=== PATIENT | male | born 1965 | race Caucasian/White ===

== ENCOUNTER 2023-10-02 09:04 | Inpatient (IN) | payer OTHER, SELFPAY ==
[2023-10-02] VITALS (15 sets, daily range): BP systolic 150–178; BP diastolic 71–105; PULSE 90–112; RESP 13–20; TEMP 36.4–36.9; O2SAT 95–100
--- NOTE | ~2023-10-02 | XR_ITS ---
XR foot LT 2V DATE: 10/03/2023 05:39 INDICATION: Left heel diabetic ulcer TECHNIQUE: AP and lateral views COMPARISON: None FINDINGS: Status post surgical fusion at the tibiotalar joint. Amputation of the distal phalanx of the great toe and middle and distal phalanges of the second toe Soft tissue irregularity along the base of the heel consistent with soft tissue ulcer. No underlying calcaneal bone destruction or periosteal reaction is evident. Three-phase radionuclide bone scan woul d be more sensitive for detection of osteomyelitis. IMPRESSION: Prominent soft tissue ulcer of the heel; no definite radiographic evidence of osteomyelit is. Three-phase radiographic bone scan would be more sensitive for detection of osteomyelitis. Status post tibiotalar arthrodesis Amputation of great toe distal phalanx second toe middle and distal phalanges Reviewed, dictated and finalized at location A. IMPRESSION: Prominent soft tissue ulcer of the heel; no definite radiographic e vidence of osteomyelitis. Three-phase radiographic bone scan would be more sens itive for detection of osteomyelitis. Status post tibiotalar arthrodesis Amputation of great toe distal phalanx second toe middle and distal phalanges
--- NOTE | ~2023-10-02 | NM_ITS ---
EXAMINATION: NM bone 3 phase DATE: 10/05/2023 12:32 INDICATION: Left foot osteomyelitis. TECHNIQUE: 24.5 mCi Tc-99m HDP was administered intravenously. Scintigrams of the feet and ankles wer e obtained in angiographic, blood pool, and delayed phases. COMPARISON: Left foot radiograph 10/03/2023 FINDINGS: There is increased activity in left calcaneus on all phases. IMPRESSION: 1. Increased activity in left calcaneus on all phases, consistent with osteomyelitis. Reviewed, dictated and finalized at location A. IMPRESSION: 1. Increased activity in left calcaneus on all phases, consistent with osteomy elitis.
--- NOTE | ~2023-10-02 | XR_ITS ---
XR chest 2V 10/02/2023 09:47 Indication: Fever Procedure: 2 view chest Comparison: No prior studies for comparison. Findings: Heart size normal. No focal air space disease, pulmonary edema, pleural effusion or suspect ed pneumothorax. Status post median sternotomy for CABG. There is a closure device overlying the left atrial appendage. Impression: 1: No acute cardiopulmonary disease. Reviewed, dictated and finalized at location B. Impression: 1: No acute cardiopulmonary disease.
--- NOTE | ~2023-10-02 | CT_ITS ---
EXAMINATION: CT abdomen pelvis wo con DATE: 10/02/2023 10:34 INDICATION: Epigastric abdominal pain. Nausea and vomiting. TECHNIQUE: Computed tomography (CT) of the abdomen and pelvis was performed without intravenous contr ast. Automated exposure control and iterative reconstruction technique were employed. The dose-length product was 1009.14 mGy-cm. COMPARISON: None. FINDINGS: The visualized portions of the lung bases demonstrate mild atelectasis. No pleural effusion . The heart size is normal. There are coronary artery calcifications. No pericardial effusion. There is wall thickening of the distal esophagus, likely esophagitis. A calcification in the liver is consi stent with old granulomatous disease. There are changes of cholecystectomy. The spleen, pancreas, and right adrenal gland are normal. There is a 2.4 cm mass in left adrenal gland measuring soft tissue a ttenuation. There is a 1.4 cm mass in right kidney measuring soft tissue attenuation. There is a 1.8 cm mass in cyst in left kidney. There is no urolithiasis. There are bilateral inguinal hernias contai marley fat. There are no dilated loops of bowel. The appendix is normal. Aortic atherosclerosis is note d. There are no pathologically enlarged lymph nodes. There is no free intraperitoneal fluid. There is an umbilical hernia containing fat. There is mild thoracic and lumbar spondylosis. There is a carmen ioma in L4 vertebral body. IMPRESSION: 1. Wall thickening of the distal esophagus, consistent with esophagitis. 2. 14 mm right kidney mass, which may be a hemorrhagic cyst or less likely a neoplasm. Abdomen MRI wi thout and with contrast is recommended. 3. 2.4 cm mass in the left adrenal gland. In the absence of known malignancy, this finding is likely an adenoma. 4. Umbilical hernia containing fat. Bilateral inguinal hernias containing fat. Reviewed, dictated and finalized at location A. IMPRESSION: 1. Wall thickening of the distal esophagus, consistent with esophagitis. 2. 14 mm right kidney mass, which may be a hemorrhagic cyst or less likely a ne oplasm. Abdomen MRI without and with contrast is recommended. 3. 2.4 cm mass in the left adrenal gland. In the absence of known malignancy, t his finding is likely an adenoma. 4. Umbilical hernia containing fat. Bilateral inguinal hernias containing fat.
--- NOTE | 2023-10-02 09:14 | ECG_ITS ---
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 Measurements Intervals [place] Rate: 113 P: 0 [place]: 0 QRS: 73 QRSD: 102 T: 51 QT: 366 QTc: 503 Interpretive Statements SINUS TACHYCARDIA NONSPECIFIC ST & T-WAVE ABNORMALITY- ANTEROLAT/INF LEADS BASELINE WANDER- V1-V2 ABNORMAL ECG No previous ECG available for comparison Electronically Signed On 10-02-2023 09:28:57 CDT by Nadeem Wheeler D.O.
[2023-10-02 09:25] LABS: Basophils Percent Auto 0.1 % (0.2-1.2); Eosinophils Percent Auto 0.1 % (0-4.4); Hematocrit 46.3 % (42.0-52.0); Hemoglobin 16.2 g/dL (14.0-18.0); Immature Granulocyte Absolute 0.05 K/mm3 (0.00-0.031); Immature Granulocyte Percent A 0.3 % (0-0.5); Lymphocytes Absolute Auto 1.57 K/mm3 (0.9-3.2); Lymphocytes Percent Auto 9.2 % (18.3-44.2); Mean Corpuscular Hemoglobin 27.9 pg (26-34); Mean Corpuscular Volume 79.7 fl (80-100); Mean Platelet Volume 9.5 fl (7.4-10.4); Monocytes Percent Auto 5.6 % (2.6-8.5); Neutrophils Absolute Auto 14.5 K/mm3 (1.3-6.7); Neutrophils Percent Auto 84.7 % (45.5-73.1); Platelet Count Result 258 k/mm3 (150-375); Red Blood Count 5.81 M/mm3 (4.6-6.20); Red Cell Distribution Width 14.6 % (11.5-14.5); White Blood Count 17.1 K/mm3 (4.5-10.0)
--- NOTE | 2023-10-02 09:36 | ED.GIBLEED ---
HPI - GI Bleed General Chief complaint: GI Bleed <TR Valenzuela Last Filed: 10/02/23 18:45> Stated complaint: vomiting blood <TR Valenzuela Last Filed: 10/02/23 18:45> Time Seen by Provider: 10/02/23 09:15 <RT Valenzuela Last Filed: 10/02/23 18:45> Source: patient <TR Valenzuela Last Filed: 10/02/23 18:45> Mode of arrival: EMS <TR Valenzuela Last Filed: 10/02/23 18:45> Limitations: no limitations <TR Valenzuela Last Filed: 10/02/23 18:45> History of Present Illness HPI Narrative: This is a 58-year-old male that presents to the emergency department for hematemesis. Reports history of DM and gastroparesis. He has been having trouble with nausea and vomiting since last night. He was concerned he may be in DKA. This morning he started to note blood streaks in his vomit which prompted him to be seen. Reports mid abdominal pain. Also reports fevers. Denies history of GI bleeds. He takes a baby Aspirin daily. Denies cough, chest pain, or dysuria. <TR Valenzuela Last Filed: 10/02/23 18:45> Related Data Home medications: Home Medications Medication Instructions Recorded Confirmed sertraline 100 mg tablet 100 mg PO BID 10/02/23 10/02/23 <TR Valenzuela Last Filed: 10/02/23 18:45> Allergies/Adverse reactions: Allergies Allergy/AdvReac Type Severity Reaction Status Date / Time iodine Allergy Rash Verified 10/02/23 09:29 <TR Valenzuela Last Filed: 10/02/23 18:45> Review of Systems Review of Systems: CONSTITUTIONAL: Denies fever CARDIOVASCULAR: Denies chest pain RESPIRATORY: Denies dyspnea. GASTROINTESTINAL: Reports abdominal pain, nausea, vomiting GENITOURINARY: Denies dysuria <TR Valenzuela Last Filed: 10/02/23 18:45> All systems reviewed & are unremarkable except as noted in HPI and below <Rachele Ayala PA-C - Last Filed: 10/02/23 18:45> PMFSH Past Medical History Medical History: Medical History (Updated 10/02/23 @ 18:43 by Rachele Ayala PA-C) History of diabetes mellitus History of diabetic gastroparesis <Rachele Ayala PA-C - Last Filed: 10/02/23 18:45> Social History Social History: Social History (Updated 10/02/23 @ 09:49 by Rachele Ayala PA-C) Smoking status: Never smoker Alcohol intake: former Substance use: never Do You Feel Safe in your Home?: Yes Lack of Transportation: No Lack of Food: Never True Current Housing: I Have Housing Concerned About Future Housing: No Difficulty Paying Gas/Electric Bills: No Difficulty Paying for Meds: No Currently Unemployed: No Education: Bachelor's Degree Difficulty w/ Childcare or Family Care: No Spiritual care concerns: No <Rachele Ayala PA-C - Last Filed: 10/02/23 18:45> Exam Narrative: GENERAL: Well-appearing, well-nourished, and in no acute distress. HEAD: Normocephalic, atraumatic. EYES: EOMI. ENT: Nares clear, no rhinorrhea or epistaxis. Mucous membranes moist. CHEST: Clear to auscultation. No respiratory distress. No wheezes rales or rhonchi HEART: Regular rate and rhythm. No murmur heard. Normal peripheral pulses. ABDOMEN: Soft, nondistended, normal active bowel sounds. Tender to palpation of the mid abdomen, without guarding EXTREMITIES: Normal range of motion. No edema. SKIN: Warm, dry, no rash. NEURO: No focal deficits. Alert and oriented x3. PSYCH: Normal mood and affect <Rachele Ayala PA-C - Last Filed: 10/02/23 18:45> Course Course Emergency Course: Patient updated on his workup and recommendation for admission <Rachele Ayala PA-C - Last Filed: 10/02/23 18:45> SALESPERSON HEARING AIDS/PA Physician Supervision For this patient encounter, I reviewed the SALESPERSON HEARING AIDS or PA documentation, treatment plan, and medical decision making; and I had [id number] time with this patient. <Walker Tirado MD - Last Filed: 10/02/23 19:12> Consultations Co
[2023-10-02 09:39] LABS: Alanine Aminotransferase 22 U/L (6-50); Albumin Level 4.8 g/dL (3.5-5.1); Alkaline Phosphatase 107 U/L (38-126); Anion Gap 15 mmol/L (4-12); Aspartate Amino Transferase 30 U/L (17-59); Bilirubin,Total 0.9 mg/dL (0.2-1.3); Blood Urea Nitrogen 19 mg/dL (9-20); Carbon Dioxide 19 mmol/L (22-30); Chloride 102 mmol/L (98-107); Estimated CRCL calculation 111 ml/min; Estimated Glomerular Filt Rate > 60; Glucose 325 mg/dL (65-110); Potassium 3.5 mmol/L (3.4-5.0); Sodium 136 mmol/L (137-145)
[2023-10-02 09:43] LABS: INR 1.1; Partial Thromboplastin Time 27.3 Seconds (22.3-36.8); Prothrombin Time 14.6 Seconds (11.1-14.7)
[2023-10-02] MEDS: METOCLOPRAMIDE HCL INJ 10 MG/2 ML VIAL IV PUSH (10:07)
[2023-10-02] MEDS: diphenhydrAMINE HCl INJ 50 MG/ML VIAL 25 MG IV PUSH (10:07)
[2023-10-02] MEDS: PANTOPRAZOLE SODIUM IV 40 MG VIAL 80 MG IV PUSH (10:08)
[2023-10-02 10:15] LABS: Magnesium 1.5 mg/dL (1.6-2.3); Phosphorus 3.2 mg/dL (2.5-4.5)
[2023-10-02 10:21] LABS: Beta-Hydroxybutyrate/Acetoacetate 1.91 mmol/L (0.02-0.27)
[2023-10-02] MEDS: MAGNESIUM SULF 2 GM/WATER 50ML 2 GM/50 ML BAG IVPB (10:36)
[2023-10-02 11:03] LABS: Appearance Urine Clear (Clear); Bacteria Urine None Seen /hpf; Bilirubin Urine Negative (Negative); Blood Urine Negative (Negative); Color Urine Yellow (Yellow); Glucose Urine UA 3+ mg/dL (Negative); Ketones Urine 3+ mg/dL (Negative); Leukocyte Esterase Ur Negative LEU/UL (Negative); Nitrate Urine Negative (Negative); Non Pathogenic Casts 0-2; Protein Urine 2+ mg/dL (Negative); RBC Urine 0-2 /hpf (0-2); Squamous Epithelial Cell Urine None Seen /hpf (Few); Urobilinogen Urine 0.2 mg/dL (<2.0); WBC Urine 0-5 /hpf (0-3); pH Urine 5.5 (5.0-9.0)
[2023-10-02 11:09] LABS: Add Urine Microscopic? YES; Specific Grav Ur 1.037 (1.001-1.035)
[2023-10-02 11:33] LABS: Influenza A QL RT-PCR Negative (Negative); Influenza B QL RT-PCR Negative (Negative); RSV RNA, RT-PCR Negative (Negative); SARS-CoV-2 RNA PCR Negative (Negative)
[2023-10-02] MEDS: SODIUM CHLORIDE 0.9% IV 1,000 ML 999 ML IV CONT (11:43)
--- NOTE | 2023-10-02 12:46 | ECG_ITS ---
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 Measurements Intervals [place] Rate: 106 P: 54 [place]: 164 QRS: 62 QRSD: 87 T: 66 QT: 352 QTc: 469 Interpretive Statements SINUS TACHYCARDIA CANNOT R/O SEPTAL INFARCT, AGE INDETERMINATE BORDERLINE ST-T WAVE ABNORMALITY- ANT/HIGH LAT LEADS BASELINE ARTIFACT- I, III, AVL ABNORMAL ECG Compared to ECG 10/02/2023 09:16:31 NO SIGNIFICANT CHANGE Electronically Signed On 10-02-2023 14:47:46 CDT by Nadeem Wheeler D.O.
--- NOTE | 2023-10-02 12:52 | PC.NURSE ---
c/o pain from chest up to his head
[2023-10-02] MEDS: INSULIN ASPART (*BKC) 100 UNITS/ML 8 UNITS SUB-Q (13:31)
[2023-10-02 13:41] LABS: Troponin I 0.015 ng/mL (0.000-0.034)
[2023-10-02] MEDS: ONDANSETRON INJ 4 MG/2 ML VIAL IV PUSH ×2 (15:13→21:26)
[2023-10-02 15:27] LABS: Anion Gap 7 mmol/L (4-12); Blood Urea Nitrogen 17 mg/dL (9-20); Calcium 10.1 mg/dL (8.4-10.2); Carbon Dioxide 22 mmol/L (22-30); Chloride 108 mmol/L (98-107); Estimated CRCL calculation 125 ml/min; Estimated Glomerular Filt Rate > 60; Glucose 277 mg/dL (65-110); Potassium 3.5 mmol/L (3.4-5.0); Sodium 137 mmol/L (137-145)
[2023-10-02] MEDS: ACETAMINOPHEN 500 MG TABLET 1000 MG PO (15:44)
[2023-10-02] MEDS: SODIUM CHLORIDE 0.9% IV 1,000 ML 125 ML IV CONT (17:14)
[2023-10-02 18:10] LABS: Glucose Point of Care 219 mg/dl (65-105)
[2023-10-02] MEDS: FAMOTIDINE 20 MG/2 ML VIAL IV PUSH (18:12)
[2023-10-02] MEDS: MORPHINE SULFATE (*CRX) 4 MG/ML INJ IV PUSH (18:12)
--- NOTE | 2023-10-02 18:16 | PM.IMHP ---
H&P: HPI History of Present Illness Date/Time: 10/02/23 18:16 Chief Complaint: Hematemesis Narrative: This is a 58-year-old male patient history of diabetes and gastroparesis presented to the emergency department today with complaints of nausea vomiting since last night with streaks of blood in it this morning. Patient was concerned he might be in DKA. He does not take any blood thinners and has never had GI bleeding before. In the emergency department workup was remarkable for white blood cell count of 17.1 normal hemoglobin and hematocrit normal platelet count normal INR and PTT. Some acidosis was noted with carbon dioxide of 19 an anion gap of 15. Blood sugar was 325. Magnesium level was noted to be 1.5 and calcium was elevated at 11.0. Beta hydroxybutyrate was 1.9, urinalysis shows 3+ glucose and 3+ ketones but no signs of infection. Flu RSV COVID swabs were negative. Chest x-ray was unremarkable while CT scan of the abdomen and pelvis showed distal esophageal wall thickening consistent with esophagitis. There were also incidental findings of a 14 mm right kidney mass and a 2.4 cm left adrenal gland mass. Gastroenterology was consulted but has not yet seen the patient. Protonix, Zofran, metoclopramide insulin and IV fluids were given. Decision was made to keep the patient in the emergency department until completing IV fluids and insulin and recheck a metabolic panel to ensure that anion gap has closed before admission. On reassessment anion gap improved to 7 and carbon dioxide level 22 after fluid resuscitation. Glucose was still elevated at 277. Patient was started on high-dose sliding scale insulin and admitted to the floor on telemetry due to continued mild tachycardia. Repeat H&Hs were ordered. Review of Systems Review of Systems: All systems reviewed & are unremarkable except as noted in HPI and below PMFSH Past Medical History Medical History History of diabetes mellitus History of diabetic gastroparesis Family History Family History Father Diabetes mellitus Mother Psoriasis Social History Social History Smoking status: Never smoker Alcohol intake: former Substance use: never Do You Feel Safe in your Home?: Yes Lack of Transportation: No Lack of Food: Never True Current Housing: I Have Housing Concerned About Future Housing: No Difficulty Paying Gas/Electric Bills: No Difficulty Paying for Meds: No Currently Unemployed: No Education: Bachelor's Degree Difficulty w/ Childcare or Family Care: No Spiritual care concerns: No Meds Home Medications and Allergies Home Medications Medication Instructions Recorded Confirmed Type sertraline 100 mg tablet 100 mg PO BID 10/02/23 10/02/23 History Allergies Allergy/AdvReac Type Severity Reaction Status Date / Time iodine Allergy Rash Verified 10/02/23 09:29 Vital Signs Vital Signs - 24 hr 10/02/23 09:22 10/02/23 09:23 10/02/23 11:35 Temperature 36.6 C 36.7 C Pulse Rate 108 H 104 H 102 H Respiratory Rate 20 18 16 Blood Pressure 177/103 H 165/97 H 178/105 H Pulse Oximetry 100 100 97 Oxygen Delivery Room Air 10/02/23 12:31 10/02/23 13:34 10/02/23 14:01 Temperature 36.6 C 36.7 C 36.6 C Pulse Rate 100 103 H 102 H Respiratory Rate 16 19 13 Blood Pressure 177/104 H 153/98 H 154/95 H Pulse Oximetry 95 97 97 Oxygen Delivery 10/02/23 10:30 10/02/23 15:00 10/02/23 16:01 Temperature 36.4 C 36.6 C 36.7 C Pulse Rate 111 H 112 H 95 Respiratory Rate 16 19 20 Blood Pressure 176/98 H 156/80 H 152/71 H Pulse Oximetry 98 96 95 Oxygen Delivery 10/02/23 16:15 10/02/23 16:31 10/02/23 17:46 Temperature 36.6 C 36.6 C Pulse Rate 99 98 90 Respiratory Rate 20 20 14 Blood Pressure 150/83 H 150/80 H Pulse Oximetry 97 95 95 Oxygen Delive
--- NOTE | 2023-10-02 18:30 | ADMGEN ---
This patient, Charles Castorena, was admitted to Virtual Bed 3rd Floor-1. Patient/family oriented to hospital policies and general routines including ID bracelet, bed and alarms, visiting hours, pain management, procedures, bathroom and other care routines, personal items, smoking policy, room service/diet, and visiting hours. Information on how to activate the Rapid Response Team has been discussed. Patient/Family are encouraged to report perceived risks to care and to ask questions if they do not understand what they are told or what they should do.
[2023-10-02 19:46] LABS: Hemoglobin A1C 9.2 % (<5.7)
[2023-10-02 19:49] LABS: Hematocrit 46.1 % (42.0-52.0); Hemoglobin 15.3 g/dL (14.0-18.0)
[2023-10-02 19:58] LABS: Troponin I < 0.012 ng/mL (0.000-0.034)
[2023-10-02] MEDS: PANTOPRAZOLE SODIUM IV 40 MG VIAL IV PUSH (21:15)
[2023-10-02] MEDS: SERTRALINE HCL 50 MG TABLET 100 MG PO (21:15)
[2023-10-02 21:47] LABS: Glucose Point of Care 253 mg/dl (65-105)
[2023-10-03] VITALS (10 sets, daily range): BP systolic 141–166; BP diastolic 78–86; PULSE 72–96; RESP 16–20; TEMP 36.4–36.7; O2SAT 93–99
[2023-10-03] MEDS: BELLADONNA ALK/PHENOB ELIX 10 ML, MAG HYDROX/ALUMINUM HYD/SIMETH 30 ML, LIDOCAINE HCL 2... PO (01:16)
[2023-10-03] MEDS: metroNIDAZOLE 500 MG/ISO 100ML 500 MG/100 ML BAG 100 MG IVPB ×4 (01:17→23:59)
[2023-10-03] MEDS: SODIUM CHLORIDE 0.9% IV 1,000 ML 125 ML IV CONT ×2 (01:18→10:22)
[2023-10-03] MEDS: CEFEPIME 2 GM/NS 50 ML 2 GM/50 ML BAG IVPB ×4 (01:18→23:16)
[2023-10-03] MEDS: VANCOMYCIN 1,250 MG/NS 250 ML 1,250 MG/250 ML BAG 166.67 MG IVPB ×2 (01:35→01:53)
[2023-10-03] MEDS: MORPHINE SULFATE (*CRX) 4 MG/ML INJ IV PUSH ×3 (01:50→19:21)
[2023-10-03 01:53] LABS: Hematocrit 41.9 % (42.0-52.0); Hemoglobin 14.2 g/dL (14.0-18.0)
[2023-10-03 07:04] LABS: Basophils Percent Auto 0.1 % (0.2-1.2); Eosinophils Absolute Auto 0.1 K/mm3 (0-0.3); Eosinophils Percent Auto 0.3 % (0-4.4); Hematocrit 40.6 % (42.0-52.0); Hemoglobin 13.8 g/dL (14.0-18.0); Immature Granulocyte Absolute 0.08 K/mm3 (0.00-0.031); Immature Granulocyte Percent A 0.5 % (0-0.5); Lymphocytes Absolute Auto 1.66 K/mm3 (0.9-3.2); Lymphocytes Percent Auto 10.9 % (18.3-44.2); Mean Corpuscular Hemoglobin 28.5 pg (26-34); Mean Corpuscular Volume 83.7 fl (80-100); Mean Platelet Volume 9.1 fl (7.4-10.4); Monocytes Absolute Auto 1.3 K/mm3 (0.1-0.6); Monocytes Percent Auto 8.6 % (2.6-8.5); Neutrophils Absolute Auto 12.1 K/mm3 (1.3-6.7); Neutrophils Percent Auto 79.6 % (45.5-73.1); Platelet Count Result 183 k/mm3 (150-375); Red Blood Count 4.85 M/mm3 (4.6-6.20); Red Cell Distribution Width 14.4 % (11.5-14.5); White Blood Count 15.2 K/mm3 (4.5-10.0)
[2023-10-03 07:16] LABS: Alanine Aminotransferase 19 U/L (6-50); Albumin Level 3.9 g/dL (3.5-5.1); Alkaline Phosphatase 81 U/L (38-126); Anion Gap 8 mmol/L (4-12); Aspartate Amino Transferase 24 U/L (17-59); Bilirubin,Total 0.6 mg/dL (0.2-1.3); Blood Urea Nitrogen 15 mg/dL (9-20); Calcium 8.7 mg/dL (8.4-10.2); Carbon Dioxide 20 mmol/L (22-30); Chloride 108 mmol/L (98-107); Estimated CRCL calculation 144 ml/min; Estimated Glomerular Filt Rate > 60; Glucose 239 mg/dL (65-110); Magnesium 1.8 mg/dL (1.6-2.3); Potassium 3.8 mmol/L (3.4-5.0); Sodium 136 mmol/L (137-145)
[2023-10-03 07:19] LABS: Beta-Hydroxybutyrate/Acetoacetate 0.32 mmol/L (0.02-0.27)
[2023-10-03 08:13] LABS: Glucose Point of Care 226 mg/dl (65-105)
[2023-10-03] MEDS: SERTRALINE HCL 50 MG TABLET 100 MG PO ×2 (08:37→19:46)
[2023-10-03] MEDS: PANTOPRAZOLE SODIUM IV 40 MG VIAL IV PUSH ×2 (08:37→19:45)
[2023-10-03] MEDS: INSULIN GLARGINE (*BKC) 100 UNITS/ML 30 UNITS SUB-Q ×2 (08:38→19:52)
[2023-10-03] MEDS: ONDANSETRON INJ 4 MG/2 ML VIAL IV PUSH ×3 (08:43→19:45)
--- NOTE | 2023-10-03 08:49 | PM.IMPN ---
Progress Note: A&P Assessment and Plan (1) Diabetic ketoacidosis: Qualifiers: Diabetes mellitus complication detail: without coma Diabetes mellitus type: type 2 Qualified Code(s): E11.10 - Type 2 diabetes mellitus with ketoacidosis without coma Code(s): E11.10 - Type 2 diabetes mellitus with ketoacidosis without coma Status: Acute Assessment and Plan: History of diabetes, not on any medication currently. Abdominal pain with nausea vomiting, history of gastroparesis Initial labs elevated blood sugar 325, decreased carbon dioxide 19 and increased anion gap 15 with beta hydroxybutyrate 1.9 Labs except for hyperglycemia corrected after IV fluids and a small dose insulin Anion gap elevation and beta hydroxybutyrate likely due to dehydration from emesis from gastroparesis 10/02: A1C is 9.2%--needs treatment on discharge Fasting glucose was 239 on labs Currently NPO for possible GI intervention? Lantus 30 units ordered SSI high dose ordered Hypoglycemia protocol with ac/hs accu checks (2) Foot ulcer, left: Code(s): L97.529 - Non-pressure chronic ulcer of other part of left foot with unspecified severity Status: Acute Assessment and Plan: -been present for a while now Deep ulcer plantar surface of left shalini with purulent appearing center, no obvious drainable abscess -unable to do MRI due to a clip in the chest that would require alterations in protocol -unable to CT with IV contrast as patient has allergy to IV dye -x-ray left foot to assess for possible osteomyelitis -initiate vancomycin, cefepime, Flagyl -wound culture ordered -elevated white blood cell count 17.1 -likely contributory to current nausea/vomiting/DKA scenario 10/02: foot XR shows prominent soft tissue ulcer of the heel no definite radiographic evidence of osteomyelitis. Three-phase radiographic bone scan is more sensitive for osteo and will be ordered. On cefepime, Flagyl, vancomycin May need general surgery consult if bone scan positive for osteomyelitis Wound care consulted Daily wound care ordered with [facility] (3) Hematemesis: Code(s): K92.0 - Hematemesis Status: Acute Assessment and Plan: Streaks of blood in later emesis episodes Gastroenterology consulted by the emergency department Patient received IV Protonix 80 mg in the ER and will be started on 40 mg twice a day Clear liquid diet, NPO after midnight ACHS fingerstick glucose, high-dose sliding scale insulin 10/02: CT scan of abdomen and pelvis shows wall thickening of distal esophagus consistent with esophagitis. Incidental finding of 14 mm right kidney mass abdominal MRI is recommended. However patient has a clip and is unable to get an MRI here. Also found 2.4 cm mass in the left adrenal gland, likely an adenoma. Umbilical hernia containing fat and bilateral inguinal hernias containing fat. Suspect gastroparesis Will schedule reglan GI will see the patient today (4) Dehydration: Code(s): E86.0 - Dehydration Status: Acute Assessment and Plan: See diabetic ketoacidosis above (5) Kidney mass: Code(s): N28.89 - Other specified disorders of kidney and ureter Status: Acute Assessment and Plan: Incidental finding on CT abdomen pelvis, radiology recommends further imaging (6) Adrenal adenoma: Qualifiers: Laterality: left Qualified Code(s): D35.02 - Benign neoplasm of left adrenal gland Code(s): D35.00 - Benign neoplasm of unspecified adrenal gland Status: Acute Assessment and Plan: Incidental finding on CT scan abdomen pelvis, radiology recommends further imaging (7) Esophagitis: Code(s): K20.90 - Esophagitis, unspecified without bleeding Status: Acute Assessment and Plan: See hematemesis above Plan Admit to [facility] Gastroenterology to see for hematemesis H&H stable Diet: Clear liquid diet, NPO after midnight VT prophy
[2023-10-03 12:04] LABS: Glucose Point of Care 245 mg/dl (65-105)
--- NOTE | 2023-10-03 12:42 | ECG_ITS ---
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 Measurements Intervals [place] Rate: 79 P: 73 [place]: 176 QRS: 67 QRSD: 90 T: 72 QT: 391 QTc: 448 Interpretive Statements SINUS RHYTHM POSSIBLE LEFT ATRIAL ENLARGEMENT [-0.1mV P WAVE IN V1/V2] SEPTAL MYOCARDIAL INFARCTION , OF INDETERMINATE AGE [40+ ms Q WAVE IN V1/V2] Compared to ECG 10/02/2023 12:48:27 Sinus tachycardia no longer present Electronically Signed On 10-03-2023 14:21:09 CDT by Lucia Dee M.D.
[2023-10-03] MEDS: INSULIN ASPART (*BKC) 100 UNITS/ML SUB-Q ×2 (12:51→17:25)
--- NOTE | 2023-10-03 13:29 | WPDGICN ---
Assessment and Plan Assessment and plan (1) Hematemesis: Code(s): K92.0 - Hematemesis Status: Acute Assessment and Plan: hemoglobin stable, normal bun, no melena probably esophagitis- continue with iv protonix, also control nausea with zofran and reglan (known history of gastroparesis per patient) also correct DKA/dehydration and medical support, diet as tolerated EGD Thursday, add carafate in the meantime (2) Diabetic ketoacidosis: Qualifiers: Diabetes mellitus type: type 2 Diabetes mellitus complication detail: without coma Qualified Code(s): E11.10 - Type 2 diabetes mellitus with ketoacidosis without coma Code(s): E11.10 - Type 2 diabetes mellitus with ketoacidosis without coma Status: Acute Assessment and Plan: insulin, by primary team (3) Esophagitis: Code(s): K20.90 - Esophagitis, unspecified without bleeding Status: Acute Assessment and Plan: most likely finding, CT scan reviewed (4) Nausea and vomiting in adult: Code(s): R11.2 - Nausea with vomiting, unspecified Status: Acute Assessment and Plan: zofran, reglan (5) Epigastric pain: Code(s): R10.13 - Epigastric pain Status: Acute Assessment and Plan: also had chest pain, EKG per primary (6) Foot ulcer, left: Code(s): L97.529 - Non-pressure chronic ulcer of other part of left foot with unspecified severity Status: Acute Assessment and Plan: on abx (7) Dehydration: Code(s): E86.0 - Dehydration Status: Acute (8) Leukocytosis: Code(s): D72.829 - Elevated white blood cell count, unspecified Status: Acute GI Consult Note Consult date/time: 10/03/23 13:29 Reason for consult: coffee ground emesis, gastroparesis, uncontrolled DM/DKA HPI: Charles Castorena is a 58 year old male with history of diabetes and gastroparesis presented to the emergency department with progressive nausea and vomiting, he noticed one emesis with streaks of blood. He just moved from [place], he says that had EGD about 1 month ago in [place] and last episode of DKA 05/2023, he is using insulin at home. ER workup white blood cell count of 17.1 normal hemoglobin, carbon dioxide of 19 an anion gap of 15.? Blood sugar was 325.?Flu RSV COVID swabs were negative.? Chest x-ray was unremarkable, CT scan of the abdomen and pelvis reviewed, showed distal esophageal wall thickening consistent with esophagitis.? Given protonix, Zofran, metoclopramide, insulin and IV fluids were given. Now he is complaining also of chest and epigastric pain, still with nausea but no more GIB, he has not had BM for 2 days. Repeat Hgb stable, normal BUN. Review of Systems Constitutional: Constitutional: Denies chills Eyes: Eyes: Denies blurry vision ENT: Reports Normal hearing present Cardiovascular: Cardiovascular: Reports chest pain Respiratory: Respiratory: Denies cough Gastrointestinal: Gastrointestinal: Reports abdominal pain, Reports nausea and Reports vomiting Genitourinary: Genitourinary: Denies hematuria Musculoskeletal: Musculoskeletal: Denies neck pain Integumentary/Breasts: Skin/Breast: Denies dry skin Neurologic: Denies Abnormal speech present Psychiatric: Psychiatric: Reports anxiety and Denies behavioral changes [facility] Past Medical History Medical History (Updated 10/03/23 @ 13:34 by Carlitos Campoverde MD) Epigastric pain History of diabetes mellitus History of diabetic gastroparesis Leukocytosis Nausea and vomiting in adult Family History Family History Father Diabetes mellitus Mother Psoriasis Social History Social History Smoking status: Never smoker Alcohol intake: former Substance use: never Do You Feel Safe in your Home?: Yes Lack of Transportation: No Lack of Food: Never True Current Housing: I Sin
[2023-10-03 13:36] LABS: Troponin I < 0.012 ng/mL (0.000-0.034)
[2023-10-03] MEDS: METOCLOPRAMIDE HCL INJ 10 MG/2 ML VIAL IV PUSH ×3 (15:10→23:15)
[2023-10-03] MEDS: VANCOMYCIN 1,500 MG/NS 500 ML 1,500 MG/500 ML BAG 250 MG IVPB (15:10)
[2023-10-03 16:56] LABS: Glucose Point of Care 210 mg/dl (65-105)
[2023-10-03] MEDS: SUCRALFATE SUSP 100 MG/ML 10 ML UDC 1000 MG PO ×2 (17:20→19:46)
[2023-10-03] MEDS: SODIUM CHLORIDE 0.9% IV 1,000 ML 100 ML IV CONT (19:48)
[2023-10-03 19:58] LABS: Glucose Point of Care 182 mg/dl (65-105)
[2023-10-04] VITALS (10 sets, daily range): BP systolic 135–157; BP diastolic 73–88; PULSE 61–70; RESP 16–20; TEMP 35.8–36.4; O2SAT 20–98
[2023-10-04] MEDS: VANCOMYCIN 1,500 MG/NS 500 ML 1,500 MG/500 ML BAG 250 MG IVPB ×3 (02:37→23:52)
[2023-10-04] MEDS: ONDANSETRON INJ 4 MG/2 ML VIAL IV PUSH ×4 (02:39→20:53)
[2023-10-04] MEDS: MORPHINE SULFATE (*CRX) 4 MG/ML INJ IV PUSH ×4 (04:02→23:48)
[2023-10-04] MEDS: SUCRALFATE SUSP 100 MG/ML 10 ML UDC 1000 MG PO ×4 (05:32→20:54)
[2023-10-04] MEDS: METOCLOPRAMIDE HCL INJ 10 MG/2 ML VIAL IV PUSH ×4 (05:32→23:47)
[2023-10-04 05:38] LABS: Basophils Percent Auto 0.2 % (0.2-1.2); Eosinophils Absolute Auto 0.1 K/mm3 (0-0.3); Eosinophils Percent Auto 0.9 % (0-4.4); Hematocrit 38.2 % (42.0-52.0); Hemoglobin 12.9 g/dL (14.0-18.0); Immature Granulocyte Absolute 0.04 K/mm3 (0.00-0.031); Immature Granulocyte Percent A 0.4 % (0-0.5); Lymphocytes Absolute Auto 1.59 K/mm3 (0.9-3.2); Lymphocytes Percent Auto 15.1 % (18.3-44.2); Mean Corpuscular HGB Conc 33.8 g/dl (32-36); Mean Corpuscular Hemoglobin 28.3 pg (26-34); Mean Corpuscular Volume 83.8 fl (80-100); Mean Platelet Volume 9.3 fl (7.4-10.4); Monocytes Percent Auto 9.1 % (2.6-8.5); Neutrophils Absolute Auto 7.8 K/mm3 (1.3-6.7); Neutrophils Percent Auto 74.3 % (45.5-73.1); Platelet Count Result 167 k/mm3 (150-375); Red Blood Count 4.56 M/mm3 (4.6-6.20); Red Cell Distribution Width 13.6 % (11.5-14.5); White Blood Count 10.5 K/mm3 (4.5-10.0)
[2023-10-04 05:57] LABS: Alanine Aminotransferase 19 U/L (6-50); Albumin Level 3.5 g/dL (3.5-5.1); Alkaline Phosphatase 75 U/L (38-126); Anion Gap 3 mmol/L (4-12); Aspartate Amino Transferase 22 U/L (17-59); Bilirubin,Total 0.6 mg/dL (0.2-1.3); Blood Urea Nitrogen 11 mg/dL (9-20); Calcium 8.4 mg/dL (8.4-10.2); Carbon Dioxide 25 mmol/L (22-30); Chloride 108 mmol/L (98-107); Estimated CRCL calculation 144 ml/min; Estimated Glomerular Filt Rate > 60; Glucose 166 mg/dL (65-110); Magnesium 1.9 mg/dL (1.6-2.3); Sodium 136 mmol/L (137-145)
--- NOTE | 2023-10-04 07:45 | PM.IMPN ---
Progress Note: A&P Assessment and Plan (1) Diabetic ketoacidosis: Qualifiers: Diabetes mellitus complication detail: without coma Diabetes mellitus type: type 2 Qualified Code(s): E11.10 - Type 2 diabetes mellitus with ketoacidosis without coma Code(s): E11.10 - Type 2 diabetes mellitus with ketoacidosis without coma Status: Acute Assessment and Plan: History of diabetes, not on any medication currently. Abdominal pain with nausea vomiting, history of gastroparesis Initial labs elevated blood sugar 325, decreased carbon dioxide 19 and increased anion gap 15 with beta hydroxybutyrate 1.9 Labs except for hyperglycemia corrected after IV fluids and a small dose insulin Anion gap elevation and beta hydroxybutyrate likely due to dehydration from emesis from gastroparesis 10/02: A1C is 9.2%--needs treatment on discharge Fasting glucose was 239 on labs Currently NPO for possible GI intervention? Lantus 30 units ordered SSI high dose ordered Hypoglycemia protocol with ac/hs accu checks 10/03: Fasting glucose 166 diabetic diet consult dm educator (2) Foot ulcer, left: Code(s): L97.529 - Non-pressure chronic ulcer of other part of left foot with unspecified severity Status: Acute Assessment and Plan: -been present for a while now Deep ulcer plantar surface of left shalini with purulent appearing center, no obvious drainable abscess -unable to do MRI due to a clip in the chest that would require alterations in protocol -unable to CT with IV contrast as patient has allergy to IV dye -x-ray left foot to assess for possible osteomyelitis -initiate vancomycin, cefepime, Flagyl -wound culture ordered -elevated white blood cell count 17.1 -likely contributory to current nausea/vomiting/DKA scenario 10/02: foot XR shows prominent soft tissue ulcer of the heel no definite radiographic evidence of osteomyelitis. Three-phase radiographic bone scan is more sensitive for osteo and will be ordered. On cefepime, Flagyl, vancomycin May need general surgery consult if bone scan positive for osteomyelitis Wound care consulted Daily wound care ordered with [employer] 10/03: Wound culture growing gram positive cocci in clusters On vancomycin, cefepime Bone scan to be done tomorrow consulted wound care, rec appreaited (3) Hematemesis: Code(s): K92.0 - Hematemesis Status: Acute Assessment and Plan: Streaks of blood in later emesis episodes Gastroenterology consulted by the emergency department Patient received IV Protonix 80 mg in the ER and will be started on 40 mg twice a day Clear liquid diet, NPO after midnight ACHS fingerstick glucose, high-dose sliding scale insulin 10/02: CT scan of abdomen and pelvis shows wall thickening of distal esophagus consistent with esophagitis. Incidental finding of 14 mm right kidney mass abdominal MRI is recommended. However patient has a clip and is unable to get an MRI here. Also found 2.4 cm mass in the left adrenal gland, likely an adenoma. Umbilical hernia containing fat and bilateral inguinal hernias containing fat. Suspect gastroparesis Will schedule reglan GI will see the patient today 10/03: GI planning EGD on Thursday On carafate and PPI Scheduled reglan (4) Dehydration: Code(s): E86.0 - Dehydration Status: Acute Assessment and Plan: See diabetic ketoacidosis above (5) Kidney mass: Code(s): N28.89 - Other specified disorders of kidney and ureter Status: Acute Assessment and Plan: Incidental finding on CT abdomen pelvis, radiology recommends further imaging (6) Adrenal adenoma: Qualifiers: Laterality: left Qualified Code(s): D35.02 - Benign neoplasm of left adrenal gland Code(s): D35.00 - Benign neoplasm of unspecified adrenal gland Status: Acute Assessment and Plan: Incidental finding on CT scan abdomen pelvis, radiology recommen
[2023-10-04 07:46] LABS: Glucose Point of Care 189 mg/dl (65-105)
[2023-10-04] MEDS: POTASSIUM CHLORIDE 20 MEQ ER TABLET 40 MEQ PO (08:14)
[2023-10-04] MEDS: PANTOPRAZOLE SODIUM IV 40 MG VIAL IV PUSH ×2 (08:15→20:51)
[2023-10-04] MEDS: SERTRALINE HCL 50 MG TABLET 100 MG PO ×2 (08:15→20:54)
[2023-10-04] MEDS: CEFEPIME 2 GM/NS 50 ML 2 GM/50 ML BAG IVPB ×3 (08:15→23:06)
[2023-10-04] MEDS: metroNIDAZOLE 500 MG/ISO 100ML 500 MG/100 ML BAG 100 MG IVPB ×3 (09:06→23:50)
[2023-10-04] MEDS: INSULIN GLARGINE (*BKC) 100 UNITS/ML 30 UNITS SUB-Q ×2 (09:17→20:57)
[2023-10-04 11:59] LABS: Glucose Point of Care 184 mg/dl (65-105)
--- NOTE | 2023-10-04 12:25 | WPDGIPROGNO ---
Progress Note: A&P Assessment and Plan (1) Hematemesis: Code(s): K92.0 - Hematemesis Status: Acute Assessment and Plan: resolved on iv protonix egd tomorrow (2) Epigastric pain: Code(s): R10.13 - Epigastric pain Status: Acute Assessment and Plan: improved (3) Nausea and vomiting in adult: Code(s): R11.2 - Nausea with vomiting, unspecified Status: Acute Assessment and Plan: known history of gastroparesis on zofran and reglan here with uncontrolled DM, also left foot infection- on iv antibiotics (4) Diabetic ketoacidosis: Qualifiers: Diabetes mellitus type: type 2 Diabetes mellitus complication detail: without coma Qualified Code(s): E11.10 - Type 2 diabetes mellitus with ketoacidosis without coma Code(s): E11.10 - Type 2 diabetes mellitus with ketoacidosis without coma Status: Acute Assessment and Plan: managed by primary (5) Foot ulcer, left: Code(s): L97.529 - Non-pressure chronic ulcer of other part of left foot with unspecified severity Status: Acute Assessment and Plan: pending bone scan (6) Gastroparesis: Code(s): K31.84 - Gastroparesis Status: Acute (7) Leukocytosis: Code(s): D72.829 - Elevated white blood cell count, unspecified Status: Acute Subjective Date/time seen: 10/04/23 12:25 Interval history: still abdominal discomfort and nausea but improved some since admission no more gib he is passing gas, no BM since admission Review of Systems Review of Systems: All systems reviewed & are unremarkable except as noted in HPI and below Exam Const: General: no acute distress HENMT: Face/Nose/Sinus: Normal nares present Eyes: General: appearance normal, both eyes and all related structures Neck: Neck: supple Resp: Auscultation: clear to auscultation bilaterally Cardio: Rate: regular rate Rhythm: regular rhythm GI: Inspection: non-distended GI Palp: Yes Soft to palpation, Yes Tenderness to palpation present (GI) (mild ttp in epigastric, no rebound) and No Guarding due to palpation present (GI) Auscultation: normal bowel sounds Skin: General skin exam: normal color Neuro: Speech: normal speech Motor exam (neuro): 5/5 motor strength present throughout Extrem: Other: left foot ulcer Psych: Affect: Anxious affect present Objective Data Vital Signs Vital Signs: Vital Signs - 24 hr 10/03/23 14:09 10/03/23 16:00 10/03/23 19:29 Temperature 97.5 F L 97.6 F Pulse Rate 83 72 79 Respiratory Rate 20 16 Blood Pressure 158/86 H 166/83 H Pulse Oximetry 99 99 Oxygen Delivery 10/03/23 20:00 10/03/23 20:00 10/04/23 00:00 Temperature Pulse Rate 81 65 Respiratory Rate Blood Pressure Pulse Oximetry Oxygen Delivery Room Air 10/04/23 03:55 10/04/23 04:00 10/04/23 08:15 Temperature 97.6 F Pulse Rate 65 70 Respiratory Rate 16 Blood Pressure 155/73 H Pulse Oximetry 98 98 Oxygen Delivery Room Air Intake/Output Intake/Output: Intake & Output 10/01/23 10/02/23 10/03/23 10/04/23 23:59 23:59 23:59 23:59 Intake Total 1050 5250.0 1100 Output Total 2450 950 Balance 1050 2800.0 150 Meds/Results Medications: Active Medications Generic Name Dose Route Start Last Admin Trade Name Freq PRN Reason Stop Dose Admin Dextrose 12.5 gm 10/02/23 18:55 Dextrose 50% 25 Gm/50 Ml Syringe IV PUSH PRN PRN Hypoglycemia Protocol Glucagon 1 mg 10/02/23 18:55 Glucagon For Inj 1 Mg Vial IM PRN PRN Hypoglycemia Protocol Glucose 15 gm 10/02/23 18:55 Glucose Oral Gel 15 Gm Of Glucse In 37.5 Gm Tube PO PRN PRN Hypoglycemia Protocol Sodium Chloride 1,000 mls @ 100 mls/hr 10/02/23 16:00 10/03/23 19:48 Normal Saline Iv IV CONT 100 mls/hr .Q10H OTILIO Administration Dextrose 1,000 mls @ 100 mls/hr 10/02/23 18:55 Dextrose 5% 1,000 Ml I
[2023-10-04] MEDS: SODIUM CHLORIDE 0.9% IV 1,000 ML 100 ML IV CONT (15:24)
[2023-10-04 16:51] LABS: Glucose Point of Care 177 mg/dl (65-105)
[2023-10-04 20:29] LABS: Glucose Point of Care 144 mg/dl (65-105)
[2023-10-04] MEDS: HYDROcodone/acetaminophen (*CRX) 5-325 MG TABLET 1 TAB PO (20:54)
[2023-10-04] MEDS: MELATONIN 5 MG TABLET PO (23:46)
[2023-10-05] VITALS (13 sets, daily range): BP systolic 113–185; BP diastolic 53–82; PULSE 55–74; RESP 18–20; TEMP 36.4–36.8; O2SAT 91–100; BMI 32.8
[2023-10-05] MEDS: SUCRALFATE SUSP 100 MG/ML 10 ML UDC 1000 MG PO ×3 (05:12→21:10)
[2023-10-05] MEDS: METOCLOPRAMIDE HCL INJ 10 MG/2 ML VIAL IV PUSH ×3 (05:12→17:08)
[2023-10-05 05:41] LABS: Basophils Percent Auto 0.2 % (0.2-1.2); Eosinophils Absolute Auto 0.2 K/mm3 (0-0.3); Eosinophils Percent Auto 2.1 % (0-4.4); Hemoglobin 13.6 g/dL (14.0-18.0); Immature Granulocyte Absolute 0.03 K/mm3 (0.00-0.031); Immature Granulocyte Percent A 0.3 % (0-0.5); Lymphocytes Absolute Auto 1.96 K/mm3 (0.9-3.2); Lymphocytes Percent Auto 21.8 % (18.3-44.2); Mean Corpuscular Volume 82.5 fl (80-100); Mean Platelet Volume 9.2 fl (7.4-10.4); Monocytes Absolute Auto 0.9 K/mm3 (0.1-0.6); Monocytes Percent Auto 9.4 % (2.6-8.5); Neutrophils Percent Auto 66.2 % (45.5-73.1); Platelet Count Result 178 k/mm3 (150-375); Red Blood Count 4.85 M/mm3 (4.6-6.20); Red Cell Distribution Width 13.6 % (11.5-14.5)
[2023-10-05 05:52] LABS: Alanine Aminotransferase 17 U/L (6-50); Albumin Level 3.5 g/dL (3.5-5.1); Alkaline Phosphatase 72 U/L (38-126); Anion Gap 4 mmol/L (4-12); Aspartate Amino Transferase 22 U/L (17-59); Bilirubin,Total 0.6 mg/dL (0.2-1.3); Blood Urea Nitrogen 9 mg/dL (9-20); Calcium 8.6 mg/dL (8.4-10.2); Carbon Dioxide 26 mmol/L (22-30); Chloride 107 mmol/L (98-107); Estimated CRCL calculation 144 ml/min; Estimated Glomerular Filt Rate > 60; Glucose 86 mg/dL (65-110); Potassium 3.1 mmol/L (3.4-5.0); Sodium 137 mmol/L (137-145)
--- NOTE | 2023-10-05 07:31 | P.PNIM_ITS ---
Progress Note: A&P Assessment and Plan (1) Diabetic ketoacidosis: Qualifiers: Diabetes mellitus complication detail: without coma Diabetes mellitus type: type 2 Qualified Code(s): E11.10 - Type 2 diabetes mellitus with ketoacidosis without coma Code(s): E11.10 - Type 2 diabetes mellitus with ketoacidosis without coma Status: Acute Assessment and Plan: History of diabetes, not on any medication currently. Abdominal pain with nausea vomiting, history of gastroparesis Initial labs elevated blood sugar 325, decreased carbon dioxide 19 and increased anion gap 15 with beta hydroxybutyrate 1.9 Labs except for hyperglycemia corrected after IV fluids and a small dose insulin Anion gap elevation and beta hydroxybutyrate likely due to dehydration from emesis from gastroparesis 10/02: * A1C is 9.2%--needs treatment on discharge * Fasting glucose was 239 on labs * Currently NPO for possible GI intervention? * Lantus 30 units ordered * SSI high dose ordered * Hypoglycemia protocol with ac/hs accu checks 10/03: * Fasting glucose 166 * diabetic diet * consult dm educator 10/04: * DM education completed * Will order outpatient DM education on discharge * Blood glucose has been well controlled during the last couple of days. (2) Foot ulcer, left: Code(s): L97.529 - Non-pressure chronic ulcer of other part of left foot with unspecified severity Status: Acute Assessment and Plan: -been present for a while now Deep ulcer plantar surface of left shalini with purulent appearing center, no obvious drainable abscess -unable to do MRI due to a clip in the chest that would require alterations in protocol -unable to CT with IV contrast as patient has allergy to IV dye -x-ray left foot to assess for possible osteomyelitis -initiate vancomycin, cefepime, Flagyl -wound culture ordered -elevated white blood cell count 17.1 -likely contributory to current nausea/vomiting/DKA scenario 10/02: * foot XR shows prominent soft tissue ulcer of the heel no definite radiographic evidence of osteomyelitis. Three-phase radiographic bone scan is more sensitive for osteo and will be ordered. * On cefepime, Flagyl, vancomycin * May need general surgery consult if bone scan positive for osteomyelitis * Wound care consulted * Daily wound care ordered with [employer] 10/03: * Wound culture growing gram positive cocci in clusters * On vancomycin, cefepime * Bone scan to be done tomorrow * consulted wound care, rec appreciated 10/04: * Wound culture is growing staphylococcus pseudintermediu * Continue with vancomycin as there are concerns on initial bone scan images for osteomyelitis * Blood cultures ordered (3) Hematemesis: Code(s): K92.0 - Hematemesis Status: Acute Assessment and Plan: Streaks of blood in later emesis episodes Gastroenterology consulted by the emergency department Patient received IV Protonix 80 mg in the ER and will be started on 40 mg twice a day Clear liquid diet, NPO after midnight ACHS fingerstick glucose, high-dose sliding scale insulin 10/02: * CT scan of abdomen and pelvis shows wall thickening of distal esophagus consistent with esophagitis. Incidental finding of 14 mm right kidney mass abdominal MRI is recommended. However patient has a clip and is unable to get an MRI here. Also found 2.4 cm mass in the left adrenal gland, likely an adenoma. Umbilical hernia containing fat and bilateral inguinal hernias containing fat. * Suspect gastroparesis * Will schedule reglan * GI will see the patient today
--- NOTE | 2023-10-05 07:31 | PM.IMPN ---
Progress Note: A&P Assessment and Plan (1) Diabetic ketoacidosis: Qualifiers: Diabetes mellitus complication detail: without coma Diabetes mellitus type: type 2 Qualified Code(s): E11.10 - Type 2 diabetes mellitus with ketoacidosis without coma Code(s): E11.10 - Type 2 diabetes mellitus with ketoacidosis without coma Status: Acute Assessment and Plan: History of diabetes, not on any medication currently. Abdominal pain with nausea vomiting, history of gastroparesis Initial labs elevated blood sugar 325, decreased carbon dioxide 19 and increased anion gap 15 with beta hydroxybutyrate 1.9 Labs except for hyperglycemia corrected after IV fluids and a small dose insulin Anion gap elevation and beta hydroxybutyrate likely due to dehydration from emesis from gastroparesis 10/02: A1C is 9.2%--needs treatment on discharge Fasting glucose was 239 on labs Currently NPO for possible GI intervention? Lantus 30 units ordered SSI high dose ordered Hypoglycemia protocol with ac/hs accu checks 10/03: Fasting glucose 166 diabetic diet consult dm educator 10/04: DM education completed Will order outpatient DM education on discharge Blood glucose has been well controlled during the last couple of days. (2) Foot ulcer, left: Code(s): L97.529 - Non-pressure chronic ulcer of other part of left foot with unspecified severity Status: Acute Assessment and Plan: -been present for a while now Deep ulcer plantar surface of left shalini with purulent appearing center, no obvious drainable abscess -unable to do MRI due to a clip in the chest that would require alterations in protocol -unable to CT with IV contrast as patient has allergy to IV dye -x-ray left foot to assess for possible osteomyelitis -initiate vancomycin, cefepime, Flagyl -wound culture ordered -elevated white blood cell count 17.1 -likely contributory to current nausea/vomiting/DKA scenario 10/02: foot XR shows prominent soft tissue ulcer of the heel no definite radiographic evidence of osteomyelitis. Three-phase radiographic bone scan is more sensitive for osteo and will be ordered. On cefepime, Flagyl, vancomycin May need general surgery consult if bone scan positive for osteomyelitis Wound care consulted Daily wound care ordered with [employer] 10/03: Wound culture growing gram positive cocci in clusters On vancomycin, cefepime Bone scan to be done tomorrow consulted wound care, rec appreciated 10/04: Wound culture is growing staphylococcus pseudintermediu Continue with vancomycin as there are concerns on initial bone scan images for osteomyelitis Blood cultures ordered (3) Hematemesis: Code(s): K92.0 - Hematemesis Status: Acute Assessment and Plan: Streaks of blood in later emesis episodes Gastroenterology consulted by the emergency department Patient received IV Protonix 80 mg in the ER and will be started on 40 mg twice a day Clear liquid diet, NPO after midnight ACHS fingerstick glucose, high-dose sliding scale insulin 10/02: CT scan of abdomen and pelvis shows wall thickening of distal esophagus consistent with esophagitis. Incidental finding of 14 mm right kidney mass abdominal MRI is recommended. However patient has a clip and is unable to get an MRI here. Also found 2.4 cm mass in the left adrenal gland, likely an adenoma. Umbilical hernia containing fat and bilateral inguinal hernias containing fat. Suspect gastroparesis Will schedule reglan GI will see the patient today 10/03: GI planning EGD on Thursday On carafate and PPI Scheduled reglan 10/04: EGD findings show ulcerative esophagitis grade 3 without bleeding. Biopsies were taken. This could explain patient's symptoms with abdominal pain and nausea. GI recommends continuing IV Protonix b.i.d. and Carafate with meals. Also continue antiemetics and Reglan. Patient will need repeat EGD in 4 months to asses
[2023-10-05 07:55] LABS: Glucose Point of Care 98 mg/dl (65-105)
[2023-10-05] MEDS: CEFEPIME 2 GM/NS 50 ML 2 GM/50 ML BAG IVPB (08:01)
[2023-10-05] MEDS: PANTOPRAZOLE SODIUM IV 40 MG VIAL IV PUSH ×2 (08:03→21:10)
[2023-10-05] MEDS: SERTRALINE HCL 50 MG TABLET 100 MG PO ×2 (08:03→21:11)
[2023-10-05] MEDS: HYDROcodone/acetaminophen (*CRX) 5-325 MG TABLET 1 TAB PO ×3 (08:04→21:11)
[2023-10-05] MEDS: ONDANSETRON INJ 4 MG/2 ML VIAL IV PUSH ×2 (08:17→21:10)
[2023-10-05] MEDS: metroNIDAZOLE 500 MG/ISO 100ML 500 MG/100 ML BAG 100 MG IVPB (08:47)
[2023-10-05 11:34] LABS: Glucose Point of Care 110 mg/dl (65-105)
[2023-10-05 12:33] LABS: Glucose Point of Care 111 mg/dl (65-105)
[2023-10-05] MEDS: LACTATED RINGERS 1,000 ML 150 ML IV CONT (12:37)
--- NOTE | 2023-10-05 13:00 | WPDANESEPPF ---
Anes - Initial Pre Proc Eval Procedure: Operation Date: 10/05/23 16:00 Proposed Procedures p Esophagogastroduodenoscopy - Carlitos Campoverde MD Date/Time: 10/05/23 13:00 Surgeon: Ami Peres APRN Pre Op Diagnosis: GI Bleed Patient Data Age: 58 Gender: M Height: 1.83 m Weight: 110 kg Last Vital Signs Temp 97.6 F 10/05/23 12:36 Pulse 64 10/05/23 12:36 Resp 18 10/05/23 12:36 BP 165/71 H 10/05/23 12:36 Pulse Ox 100 10/05/23 12:36 O2 Del Method Room Air 10/05/23 12:36 Allergies Allergy/AdvReac Type Severity Reaction Status Date / Time iodine Allergy Rash Verified 10/05/23 12:32 Home Medications Medication Instructions Recorded Confirmed Type sertraline 100 mg tablet 100 mg PO BID 10/02/23 10/02/23 History insulin glargine U-300 conc 300 40 unit subcut QAM 10/03/23 10/03/23 History unit/mL (1.5 mL) subcutaneous pen (Toujeo SoloStar U-300 Insulin) insulin lispro 100 unit/mL 25 unit subcut BID 10/03/23 10/03/23 History subcutaneous solution (Humalog U-100 Insulin) Laboratory Tests 10/04/23 10/04/23 10/04/23 14:01 16:45 20:21 WBC RBC Hgb Hct MCV MCH MCHC RDW Plt Count MPV Immature Gran % (Auto) Neut % (Auto) Lymph % (Auto) [place] % (Auto) Eos % (Auto) Baso % (Auto) Lymph # (Auto) [place] # (Auto) Eos # (Auto) Baso # (Auto) Abs Immat Gran (auto) Absolute Neuts (auto) Absolute Nucleated RBC Nucleated RBC % Sodium Potassium Chloride Carbon Dioxide Anion Gap BUN Creatinine Estim Creat Clear Calc Estimated GFR Glucose POC Capillary Glucose 177 H mg/dl 144 H mg/dl (65-105) (65-105) Calcium Magnesium Total Bilirubin AST ALT Alkaline Phosphatase Total Protein Albumin Vancomycin Trough 8.0 L ug/mL (10.0-20.0) 10/05/23 10/05/23 10/05/23 05:20 07:53 11:30 WBC 9.0 K/mm3 (4.5-10.0) RBC 4.85 M/mm3 (4.6-6.20) Hgb 13.6 L g/dL (14.0-18.0) Hct 40.0 L % (42.0-52.0) MCV 82.5 fl (80-100) MCH 28.0 pg (26-34) MCHC 34.0 g/dl (32-36) RDW 13.6 % (11.5-14.5) Plt Count 178 k/mm3 (150-375) MPV 9.2 fl (7.4-10.4) Immature Gran % (Auto) 0.3 % (0-0.5) Neut % (Auto) 66.2 % (45.5-73.1) Lymph % (Auto) 21.8 % (18.3-44.2) [place] % (Auto) 9.4 H % (2.6-8.5) Eos % (Auto) 2.1 % (0-4.4) Baso % (Auto) 0.2 % (0.2-1.2) Lymph # (Auto) 1.96 K/mm3 (0.9-3.2) [place] # (Auto) 0.9 H K/mm3 (0.1-0.6) Eos # (Auto) 0.2 K/mm3 (0-0.3) Baso # (Auto) 0.0 K/mm3 (0.0-0.1) Abs Immat Gran (auto) 0.03 K/mm3 (0.00-0.031) Absolute Neuts (auto) 6.0 K/mm3 (1.3-6.7) Absolute Nucleated RBC 0.000 K/mm3 (0.0-0.012) Nucleated RBC % 0.0 % (0.0-0.2) Sodium 137 mmol/L (137-145) Potassium 3.1 L mmol/L (3.4-5.0) Chloride 107 mmol/L (98-107) Carbon Dioxide 26 mmol/L (22-30) Anion Gap 4 mmol/L (4-12) BUN 9 mg/dL (9-20) Creatinine 0.60 L mg/dL (0.7-1.3) Estim Creat Clear Calc 144 ml/min Estimated GFR > 60 (59 - ) Glucose 86 mg/dL (65-110) POC Capillary Glucose 98 mg/dl 110 H mg/dl (65-105) (65-105) Calcium 8.6 mg/dL (8.4-10.2) Magnesium 2.0 mg/dL (1.6-2.3)
[2023-10-05] MEDS: VANCOMYCIN 1,500 MG/NS 500 ML 1,500 MG/500 ML BAG 250 MG IVPB ×2 (14:19→21:14)
[2023-10-05] MEDS: POTASSIUM CHLORIDE 20 MEQ ER TABLET 40 MEQ PO (14:21)
[2023-10-05 16:04] LABS: Vancomycin Trough 17.8 ug/mL (10.0-20.0)
[2023-10-05 17:16] LABS: Glucose Point of Care 227 mg/dl (65-105)
[2023-10-05] MEDS: INSULIN ASPART (*BKC) 100 UNITS/ML SUB-Q (17:19)
[2023-10-05] MEDS: SODIUM CHLORIDE 0.9% IV 1,000 ML 100 ML IV CONT (21:09)
[2023-10-05] MEDS: MELATONIN 5 MG TABLET PO (21:11)
[2023-10-05] MEDS: INSULIN GLARGINE (*BKC) 100 UNITS/ML 30 UNITS SUB-Q (21:17)
[2023-10-05 21:22] LABS: Glucose Point of Care 136 mg/dl (65-105)
[2023-10-06] VITALS: PULSE 67
[2023-10-06] MEDS: METOCLOPRAMIDE HCL INJ 10 MG/2 ML VIAL IV PUSH ×4 (01:00→17:24)
[2023-10-06] MEDS: HYDROcodone/acetaminophen (*CRX) 5-325 MG TABLET 1 TAB PO ×3 (01:01→14:32)
[2023-10-06 04:00] VITALS: PULSE 60
[2023-10-06 04:38] VITALS: BP 160/90; PULSE 62; RESP 18; TEMP 36.7; O2SAT 96
[2023-10-06] MEDS: SUCRALFATE SUSP 100 MG/ML 10 ML UDC 1000 MG PO ×3 (05:47→17:24)
[2023-10-06 05:55] LABS: Basophils Percent Auto 0.3 % (0.2-1.2); Eosinophils Absolute Auto 0.2 K/mm3 (0-0.3); Hematocrit 40.7 % (42.0-52.0); Hemoglobin 13.9 g/dL (14.0-18.0); Immature Granulocyte Absolute 0.05 K/mm3 (0.00-0.031); Immature Granulocyte Percent A 0.6 % (0-0.5); Lymphocytes Absolute Auto 1.81 K/mm3 (0.9-3.2); Lymphocytes Percent Auto 23.3 % (18.3-44.2); Mean Corpuscular HGB Conc 34.2 g/dl (32-36); Mean Corpuscular Hemoglobin 28.1 pg (26-34); Mean Corpuscular Volume 82.2 fl (80-100); Mean Platelet Volume 9.2 fl (7.4-10.4); Monocytes Absolute Auto 0.8 K/mm3 (0.1-0.6); Monocytes Percent Auto 9.8 % (2.6-8.5); Neutrophils Absolute Auto 4.9 K/mm3 (1.3-6.7); Platelet Count Result 180 k/mm3 (150-375); Red Blood Count 4.95 M/mm3 (4.6-6.20); Red Cell Distribution Width 13.3 % (11.5-14.5); White Blood Count 7.8 K/mm3 (4.5-10.0)
[2023-10-06 06:08] LABS: Alanine Aminotransferase 17 U/L (6-50); Albumin Level 3.6 g/dL (3.5-5.1); Alkaline Phosphatase 74 U/L (38-126); Anion Gap 6 mmol/L (4-12); Aspartate Amino Transferase 19 U/L (17-59); Bilirubin,Total 0.7 mg/dL (0.2-1.3); Blood Urea Nitrogen 9 mg/dL (9-20); Calcium 8.6 mg/dL (8.4-10.2); Carbon Dioxide 24 mmol/L (22-30); Chloride 106 mmol/L (98-107); Estimated CRCL calculation 144 ml/min; Estimated Glomerular Filt Rate > 60; Glucose 145 mg/dL (65-110); Magnesium 1.9 mg/dL (1.6-2.3); Potassium 3.1 mmol/L (3.4-5.0); Sodium 136 mmol/L (137-145)
[2023-10-06 06:11] LABS: Vancomycin Trough 14.1 ug/mL (10.0-20.0)
[2023-10-06] MEDS: VANCOMYCIN 1,500 MG/NS 500 ML 1,500 MG/500 ML BAG 250 MG IVPB ×2 (06:38→14:25)
[2023-10-06 08:05] LABS: Glucose Point of Care 149 mg/dl (65-105)
--- NOTE | 2023-10-06 08:39 | WPDANESPN ---
Anes - Prog Note Post-Op Date/Time: 10/06/23 08:39 Cardiovascular status: normal Respiratory status: normal Airway patency: baseline Mental status: baseline Post-Op hydration status: normal Vital Signs: Last Vital Signs Temp 36.7 C 10/06/23 04:38 Pulse 62 10/06/23 04:38 Resp 18 10/06/23 04:38 BP 160/90 H 10/06/23 04:38 Pulse Ox 96 10/06/23 04:38 O2 Del Method Room Air 10/05/23 13:50 Pain Score (VAS): 10 I/O: Intake & Output 10/05/23 10/06/23 10/06/23 23:59 07:59 15:59 Intake Total 890 100 Output Total 300 750 Balance 590 -650 Laboratory Tests 10/06/23 05:34 10/06/23 05:34 10/05/23 10/05/23 10/05/23 11:30 12:29 14:52 WBC RBC Hgb Hct MCV MCH MCHC RDW Plt Count MPV Immature Gran % (Auto) Neut % (Auto) Lymph % (Auto) [place] % (Auto) Eos % (Auto) Baso % (Auto) Lymph # (Auto) [place] # (Auto) Eos # (Auto) Baso # (Auto) Abs Immat Gran (auto) Absolute Neuts (auto) Absolute Nucleated RBC Nucleated RBC % Sodium Potassium Chloride Carbon Dioxide Anion Gap BUN Creatinine Estim Creat Clear Calc Estimated GFR Glucose POC Capillary Glucose 110 H 111 H Calcium Magnesium Total Bilirubin AST ALT Alkaline Phosphatase Total Protein Albumin Vancomycin Trough 17.8 10/05/23 10/05/23 10/06/23 17:13 21:16 05:34 WBC 7.8 RBC 4.95 Hgb 13.9 L Hct 40.7 L MCV 82.2 MCH 28.1 MCHC 34.2 RDW 13.3 Plt Count 180 MPV 9.2 Immature Gran % (Auto) 0.6 H Neut % (Auto) 63.0 Lymph % (Auto) 23.3 [place] % (Auto) 9.8 H Eos % (Auto) 3.0 Baso % (Auto) 0.3 Lymph # (Auto) 1.81 [place] # (Auto) 0.8 H Eos # (Auto) 0.2 Baso # (Auto) 0.0 Abs Immat Gran (auto) 0.05 H Absolute Neuts (auto) 4.9 Absolute Nucleated RBC 0.000 Nucleated RBC % 0.0 Sodium 136 L Potassium 3.1 L Chloride 106 Carbon Dioxide 24 Anion Gap 6 BUN 9 Creatinine 0.60 L Estim Creat Clear Calc 144 Estimated GFR > 60 Glucose 145 H POC Capillary Glucose 227 H 136 H Calcium 8.6 Magnesium 1.9 Total Bilirubin 0.7 AST 19 ALT 17 Alkaline Phosphatase 74 Total Protein 6.0 L Albumin 3.6 Vancomycin Trough 14.1 10/06/23 07:59 WBC RBC Hgb Hct MCV MCH MCHC RDW Plt Count MPV Immature Gran % (Auto) Neut % (Auto) Lymph % (Auto) [place] % (Auto) Eos % (Auto) Baso % (Auto) Lymph # (Auto) [place] # (Auto) Eos # (Auto) Baso # (Auto) Abs Immat Gran (auto) Absolute Neuts (auto) Absolute Nucleated RBC Nucleated RBC % Sodium Potassium Chloride Carbon Dioxide Anion Gap BUN Creatinine Estim Creat Clear Calc Estimated GFR Glucose POC Capillary Glucose 149 H Calcium Magnesium Total Bilirubin AST ALT Alkaline Phosphatase Total Protein Albumin Vancomycin Trough Microbiology 10/03/23 01:28 Foot - Unspecified Wound Culture - Final Staphylococcus pseudintermediu Post-procedural complaints: none Patient Feedback: Patient satisfied with anesthetic care.
[2023-10-06] MEDS: ONDANSETRON INJ 4 MG/2 ML VIAL IV PUSH (08:56)
[2023-10-06] MEDS: SERTRALINE HCL 50 MG TABLET 100 MG PO (08:57)
[2023-10-06] MEDS: PANTOPRAZOLE SODIUM IV 40 MG VIAL IV PUSH (08:57)
--- NOTE | 2023-10-06 08:58 | P.PNIM_ITS ---
Progress Note: A&P Assessment and Plan (1) Diabetic ketoacidosis: Qualifiers: Diabetes mellitus complication detail: without coma Diabetes mellitus type: type 2 Qualified Code(s): E11.10 - Type 2 diabetes mellitus with ketoacidosis without coma Code(s): E11.10 - Type 2 diabetes mellitus with ketoacidosis without coma Status: Acute Assessment and Plan: History of diabetes, not on any medication currently. Abdominal pain with nausea vomiting, history of gastroparesis Initial labs elevated blood sugar 325, decreased carbon dioxide 19 and increased anion gap 15 with beta hydroxybutyrate 1.9 Labs except for hyperglycemia corrected after IV fluids and a small dose insulin Anion gap elevation and beta hydroxybutyrate likely due to dehydration from emesis from gastroparesis 10/02: * A1C is 9.2%--needs treatment on discharge * Fasting glucose was 239 on labs * Currently NPO for possible GI intervention? * Lantus 30 units ordered * SSI high dose ordered * Hypoglycemia protocol with ac/hs accu checks 10/03: * Fasting glucose 166 * diabetic diet * consult dm educator 10/04: * DM education completed * Will order outpatient DM education on discharge * Blood glucose has been well controlled during the last couple of days. 10/05: * Lantus 30 units BID, SSI high dose * Blood glucose ranging 110-227 (2) Foot ulcer, left: Code(s): L97.529 - Non-pressure chronic ulcer of other part of left foot with unspecified severity Status: Acute Assessment and Plan: -been present for a while now Deep ulcer plantar surface of left shalini with purulent appearing center, no obvious drainable abscess -unable to do MRI due to a clip in the chest that would require alterations in protocol -unable to CT with IV contrast as patient has allergy to IV dye -x-ray left foot to assess for possible osteomyelitis -initiate vancomycin, cefepime, Flagyl -wound culture ordered -elevated white blood cell count 17.1 -likely contributory to current nausea/vomiting/DKA scenario 10/02: * foot XR shows prominent soft tissue ulcer of the heel no definite radiographic evidence of osteomyelitis. Three-phase radiographic bone scan is more sensiti ve for osteo and will be ordered. 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 (3) Hematemesis: Code(s): K92.0 - Hematemesis Status: Acute Assessment and Plan: Streaks of blood in later emesis episodes Gastroenterology consulted by the emergency department Patient received IV Protonix 80 mg in the ER and will be started on 40 mg twice a day Clear liquid diet, NPO after midnight ACHS fingerstick glucose, high-dose sliding scale insulin 10/02: * CT scan of abdomen and pelvis shows wall thickening of distal esophagus consistent with esophagitis. Incidental finding of 14 mm right kidney mass abdominal MRI is recommended. However patient has a clip and is iftikhar
--- NOTE | 2023-10-06 08:58 | PM.IMPN ---
Progress Note: A&P Assessment and Plan (1) Diabetic ketoacidosis: Qualifiers: Diabetes mellitus complication detail: without coma Diabetes mellitus type: type 2 Qualified Code(s): E11.10 - Type 2 diabetes mellitus with ketoacidosis without coma Code(s): E11.10 - Type 2 diabetes mellitus with ketoacidosis without coma Status: Acute Assessment and Plan: History of diabetes, not on any medication currently. Abdominal pain with nausea vomiting, history of gastroparesis Initial labs elevated blood sugar 325, decreased carbon dioxide 19 and increased anion gap 15 with beta hydroxybutyrate 1.9 Labs except for hyperglycemia corrected after IV fluids and a small dose insulin Anion gap elevation and beta hydroxybutyrate likely due to dehydration from emesis from gastroparesis 10/02: A1C is 9.2%--needs treatment on discharge Fasting glucose was 239 on labs Currently NPO for possible GI intervention? Lantus 30 units ordered SSI high dose ordered Hypoglycemia protocol with ac/hs accu checks 10/03: Fasting glucose 166 diabetic diet consult dm educator 10/04: DM education completed Will order outpatient DM education on discharge Blood glucose has been well controlled during the last couple of days. 10/05: Lantus 30 units BID, SSI high dose Blood glucose ranging 110-227 (2) Foot ulcer, left: Code(s): L97.529 - Non-pressure chronic ulcer of other part of left foot with unspecified severity Status: Acute Assessment and Plan: -been present for a while now Deep ulcer plantar surface of left shalini with purulent appearing center, no obvious drainable abscess -unable to do MRI due to a clip in the chest that would require alterations in protocol -unable to CT with IV contrast as patient has allergy to IV dye -x-ray left foot to assess for possible osteomyelitis -initiate vancomycin, cefepime, Flagyl -wound culture ordered -elevated white blood cell count 17.1 -likely contributory to current nausea/vomiting/DKA scenario 10/02: foot XR shows prominent soft tissue ulcer of the heel no definite radiographic evidence of osteomyelitis. Three-phase radiographic bone scan is more sensitive for osteo and will be ordered. On cefepime, Flagyl, vancomycin May need general surgery consult if bone scan positive for osteomyelitis Wound care consulted Daily wound care ordered with [employer] 10/03: Wound culture growing gram positive cocci in clusters On vancomycin, cefepime Bone scan to be done tomorrow consulted wound care, rec appreciated 10/04: Wound culture is growing staphylococcus pseudintermediu Continue with vancomycin until final bone scan read Blood cultures ordered 10/05: WBC has resolved, afebrile IV vancomycin Blood cultures in progress likely will need tank terminal gauger IV antibiotics---need to discuss further with ID pharmacist after surgery weighs in. (3) Hematemesis: Code(s): K92.0 - Hematemesis Status: Acute Assessment and Plan: Streaks of blood in later emesis episodes Gastroenterology consulted by the emergency department Patient received IV Protonix 80 mg in the ER and will be started on 40 mg twice a day Clear liquid diet, NPO after midnight ACHS fingerstick glucose, high-dose sliding scale insulin 10/02: CT scan of abdomen and pelvis shows wall thickening of distal esophagus consistent with esophagitis. Incidental finding of 14 mm right kidney mass abdominal MRI is recommended. However patient has a clip and is unable to get an MRI here. Also found 2.4 cm mass in the left adrenal gland, likely an adenoma. Umbilical hernia containing fat and bilateral inguinal hernias containing fat. Suspect gastroparesis Will schedule reglan GI will see the patient today 10/03: GI planning EGD on Thursday On carafate and PPI Scheduled reglan 10/04: EGD findings show ulcerative esophagitis grade 3 without bleeding. Biopsies were
[2023-10-06] MEDS: INSULIN GLARGINE (*BKC) 100 UNITS/ML 30 UNITS SUB-Q (09:04)
[2023-10-06 09:05] VITALS: O2SAT 96
[2023-10-06] MEDS: ENOXAPARIN 40 MG/0.4 ML SYRINGE SUB-Q (09:33)
[2023-10-06] MEDS: POTASSIUM CHLORIDE 20 MEQ ER TABLET 40 MEQ PO (09:34)
[2023-10-06] MEDS: ACETAMINOPHEN 325 MG TABLET PO (09:40)
[2023-10-06 12:02] LABS: Glucose Point of Care 180 mg/dl (65-105)
[2023-10-06 14:00] VITALS: BP 139/76; PULSE 74; RESP 16; TEMP 36.9; O2SAT 100
--- NOTE | 2023-10-06 15:45 | WPDGIPROGNO ---
Progress Note: A&P Assessment and Plan (1) Nausea and vomiting in adult: Code(s): R11.2 - Nausea with vomiting, unspecified Status: Acute Assessment and Plan: improving here with left foot infection that will require more iv antibiotics also gastroparesis and egd noted ulcerative esophagitis- all can contribute to his gi symptom diet as tolerated (2) Ulcerative esophagitis: Code(s): K22.10 - Ulcer of esophagus without bleeding Status: Acute Assessment and Plan: will need prison ppi carafate with meals (3) Diabetic ketoacidosis: Qualifiers: Diabetes mellitus type: type 2 Diabetes mellitus complication detail: without coma Qualified Code(s): E11.10 - Type 2 diabetes mellitus with ketoacidosis without coma Code(s): E11.10 - Type 2 diabetes mellitus with ketoacidosis without coma Status: Acute Assessment and Plan: treated (4) Hematemesis: Code(s): K92.0 - Hematemesis Status: Acute Assessment and Plan: resolved (5) Epigastric pain: Code(s): R10.13 - Epigastric pain Status: Acute (6) Foot ulcer, left: Code(s): L97.529 - Non-pressure chronic ulcer of other part of left foot with unspecified severity Status: Acute Subjective Date/time seen: 10/06/23 15:45 Interval history: egd yesterday with ulcerative esophagitis, still nausea but less abdominal pain and eating more Review of Systems Review of Systems: All systems reviewed & are unremarkable except as noted in HPI and below Exam Const: General: no acute distress HENMT: Face/Nose/Sinus: Normal nares present Eyes: General: appearance normal, both eyes and all related structures Neck: Neck: supple Resp: Auscultation: clear to auscultation bilaterally Cardio: Rate: regular rate Rhythm: regular rhythm GI: Inspection: non-distended GI Palp: Yes Soft to palpation, Yes Tenderness to palpation present (GI) (mild ttp in epigastric, no rebound) and No Guarding due to palpation present (GI) Auscultation: normal bowel sounds Skin: General skin exam: normal color Neuro: Speech: normal speech Motor exam (neuro): 5/5 motor strength present throughout Extrem: Other: left foot ulcer Psych: Affect: Anxious affect present Objective Data Vital Signs Vital Signs: Vital Signs - 24 hr 10/05/23 16:00 10/05/23 20:06 10/05/23 20:00 Temperature 97.8 F Pulse Rate 72 70 69 Respiratory Rate 18 Blood Pressure 152/80 H Pulse Oximetry 96 Oxygen Delivery 10/06/23 00:00 10/06/23 04:38 10/06/23 04:00 Temperature 98.1 F Pulse Rate 67 62 60 Respiratory Rate 18 Blood Pressure 160/90 H Pulse Oximetry 96 Oxygen Delivery 10/06/23 09:05 10/06/23 14:00 Temperature 98.4 F Pulse Rate 74 Respiratory Rate 16 Blood Pressure 139/76 Pulse Oximetry 96 100 Oxygen Delivery Room Air Intake/Output Intake/Output: Intake & Output 10/03/23 10/04/23 10/05/23 10/06/23 23:59 23:59 23:59 23:59 Intake Total 5250.0 3310 2640 1080 Output Total 2450 4075 1000 750 Balance 2800.0 -765 1640 330 Meds/Results Medications: Active Medications Generic Name Dose Route Start Last Admin Trade Name Freq PRN Reason Stop Dose Admin Acetaminophen 325 mg 10/04/23 12:25 10/06/23 09:40 Acetaminophen 325 Mg Tablet PO 325 mg Q4H PRN Administration Mild Pain (1-3) or Fever Hydrocodone Bitart/Acetaminophen 1 tab 10/04/23 12:25 10/06/23 14:32 Hydrocodone/Acetaminophen (*Crx) 5-325 Mg Tablet PO 1 tab Q4H PRN Administration Pain Rated 4-6 Dextrose 12.5 gm 10/02/23 18:55 Dextrose 50% 25 Gm/50 Ml Syringe IV PUSH PRN PRN Hypoglycemia Protocol Enoxaparin Sodium 40 mg 10/06/23 09:15 10/06/23 09:33 Enoxaparin 40 Mg/0.4 Ml Syringe SUB-Q 40 mg DAILY OTILIO Administration Glucagon 1 mg 10/02/23 18:55 Glucagon For Inj 1 Mg Vial IM PRN PRN Hypoglycemia Levio
--- NOTE | 2023-10-06 16:45 | PM.CNGS ---
Assessment and Plan Assessment and plan (1) Chronic foot ulcer: Code(s): L97.509 - Non-pressure chronic ulcer of other part of unspecified foot with unspecified severity <Ciara JacksonMIRANDA thomas - Last Filed: 10/07/23 14:06> Status: Acute <Ciara JacksonMIRANDA thomas - Last Filed: 10/07/23 14:06> Assessment and Plan: This is the reason for our consultation. The patient has a chronic left heel ulcer that appears stable with no signs of active infection. There is no necrotic tissue that would require surgical debridement. No findings on exam that suggests there is any acute infection. Findings on bone scan that suggest osteomyelitis, but this again appears to be a chronic finding. He has received treatment for what sounds like osteomyelitis with long-term IV antibiotics on multiple occasions in the past related to his heel ulcer. He has been dealing with this wound for 4 years. He also follows a photoengraving finisher as an outpatient and was planning to get set up with wound care since he recently moved to the area. No indication for any acute surgical intervention. Would recommend local wound care at this point. Recommended follow-up with Podiatry and Wound Care. <Ciara JacksonMIRANDA thomas - Last Filed: 10/07/23 14:06> (2) Ulcerative esophagitis: Code(s): K22.10 - Ulcer of esophagus without bleeding <Ciara MayorgaJessica ManuelMIRANDA thomas - Last Filed: 10/07/23 14:06> Status: Acute <Ciara MayorgaJessica ManuelMIRANDA thomas - Last Filed: 10/07/23 14:06> (3) Gastroparesis: Code(s): K31.84 - Gastroparesis <Ciara MayorgaJessica ManuelMIRANDA thomas - Last Filed: 10/07/23 14:06> Status: Acute <Ciara MayorgaJessica ManuelMIRANDA thomas - Last Filed: 10/07/23 14:06> (4) Diabetic ketoacidosis: Qualifiers: Diabetes mellitus complication detail: without coma Diabetes mellitus type: type 2 Qualified Code(s): E11.10 - Type 2 diabetes mellitus with ketoacidosis without coma <Ciara TierraJessica ManuelMIRANDA thomas - Last Filed: 10/07/23 14:06> Code(s): E11.10 - Type 2 diabetes mellitus with ketoacidosis without coma <Ciara Brenda JacksonMIRANDA thomas - Last Filed: 10/07/23 14:06> Status: Acute <Ciara MayorgaJessica ManuelMIRANDA thomas - Last Filed: 10/07/23 14:06> Assessment and Plan: Resolved. <Ciara Gutierrez ManuelMIRANDA thomas - Last Filed: 10/07/23 14:06> (5) Insulin dependent diabetes mellitus: Status: Acute <Ciara MayorgaJessica ManuelMIRANDA thomas - Last Filed: 10/07/23 14:06> Assessment and Plan: I have discussed the patient's case and plan of care with Dr. Limon. <Ciara Gutierrez ManuelMIRANDA thomas - Last Filed: 10/07/23 14:06> History of Present Illness Consult details Consult date: 10/07/23 <Ciara Gutierrez ManuelMIRANDA thomas - Last Filed: 10/07/23 14:06> 10/07/23 <Vandana Limon MD - Last Filed: 10/07/23 09:51> Reason for consult: other (Osteomyelitis) <Ciara Gutierrez ManuelMIRANDA thomas - Last Filed: 10/07/23 14:06> Requesting physician: Ami Peres APRN <Ciara Gutierrez ManuelMIRANDA thomas - Last Filed: 10/07/23 14:06> Narrative: This is a 58-year-old man with a history of insulin-dependent diabetes mellitus and gastroparesis, who presented to the ED with progressive nausea and vomiting on 10/02/2023. He recently moved from [place], and has established care with a primary care physician in the area. ER workup showed evidence of diabetic ketoacidosis and leukocytosis. CT scan of the abdomen and pelvis showed distal esophageal wall thickening consistent with esophagitis, and other chronic findings. Patient also reports having a left heel ulcer that he has been dealing with for the past 4 years. He was seeing a photoengraving finisher in [place] and had been hospitalized for an infection ulcer multiple times in the past. He reports having 2 different episodes where he had a PICC line and weeks worth of IV antibiotics at home due to a foot infection from this ulcer. A left foot x-ray was done due to the heel ulcer and showed prominent soft tissue ulcer of the heel with no definite radiographic eviden
[2023-10-06 17:13] LABS: Glucose Point of Care 117 mg/dl (65-105)
--- NOTE | 2023-10-06 17:46 | P.DS_ITS ---
DS: Admitting Diagnosis Discharge Date 10/05 Admitting Diagnosis nausea, vomiting DS: Discharge Diagnosis Discharge Diagnosis (1) Diabetic ketoacidosis: Qualifiers: Diabetes mellitus type: type 2 Diabetes mellitus complication detail: without coma Qualified Code(s): E11.10 - Type 2 diabetes mellitus with ketoacidosis without coma Code(s): E11.10 - Type 2 diabetes mellitus with ketoacidosis without coma Status: Acute Assessment and Plan: History of diabetes, not on any medication currently. Abdominal pain with nausea vomiting, history of gastroparesis Initial labs elevated blood sugar 325, decreased carbon dioxide 19 and increased anion gap 15 with beta hydroxybutyrate 1.9 Labs except for hyperglycemia corrected after IV fluids and a small dose insulin Anion gap elevation and beta hydroxybutyrate likely due to dehydration from emesis from gastroparesis 10/02: * A1C is 9.2%--needs treatment on discharge * Fasting glucose was 239 on labs * Currently NPO for possible GI intervention? * Lantus 30 units ordered * SSI high dose ordered * Hypoglycemia protocol with ac/hs accu checks 10/03: * Fasting glucose 166 * diabetic diet * consult dm educator 10/04: * DM education completed * Will order outpatient DM education on discharge * Blood glucose has been well controlled during the last couple of days. 10/05: * Lantus 30 units BID, SSI high dose * Blood glucose ranging 110-227 (2) Foot ulcer, left: Code(s): L97.529 - Non-pressure chronic ulcer of other part of left foot with unspecified severity Status: Acute Assessment and Plan: -been present for a while now Deep ulcer plantar surface of left shalini with purulent appearing center, no obvious drainable abscess -unable to do MRI due to a clip in the chest that would require alterations in protocol -unable to CT with IV contrast as patient has allergy to IV dye -x-ray left foot to assess for possible osteomyelitis -initiate vancomycin, cefepime, Flagyl -wound culture ordered -elevated white blood cell count 17.1 -likely contributory to current nausea/vomiting/DKA scenario 10/02: * foot XR shows prominent soft tissue ulcer of the heel no definite radiographic evidence of osteomyelitis. Three-phase radiographic bone scan is more sensitive for osteo and will be ordered. * On cefepime, Flagyl, vancomycin * May need general surgery consult if bone scan positive for osteomyelitis * Wound care consulted * Daily wound care ordered with [employer] 10/03: * Wound culture growing gram positive cocci in clusters * On vancomycin, cefepime * Bone scan to be done tomorrow * consulted wound care, rec appreciated 10/04: * Wound culture is growing staphylococcus pseudintermediu * Continue with vancomycin until final bone scan read * Blood cultures ordered 10/05: * WBC has resolved, afebrile * IV vancomycin * Blood cultures in progress * likely will need supervisor intermediates IV antibiotics---need to discuss further with ID pharmacist after surgery weighs in. (3) Hematemesis: Code(s): K92.0 - Hematemesis Status: Acute Assessment and Plan: Streaks of blood in later emesis episodes Gastroenterology consulted by the emergency department Patient received IV Protonix 80 mg in the ER and will be started on 40 mg twice a day Clear liquid diet, NPO after midnight ACHS fingerstick glucose, high-dose sliding scale insulin 10/02: * CT scan of abdomen and pelvis shows wall thickening of distal esophagus consistent with esophagitis. Inc
--- NOTE | 2023-10-06 17:46 | PM.DS ---
DS: Admitting Diagnosis Discharge Date 10/05 Admitting Diagnosis nausea, vomiting DS: Discharge Diagnosis Discharge Diagnosis (1) Diabetic ketoacidosis: Qualifiers: Diabetes mellitus type: type 2 Diabetes mellitus complication detail: without coma Qualified Code(s): E11.10 - Type 2 diabetes mellitus with ketoacidosis without coma Code(s): E11.10 - Type 2 diabetes mellitus with ketoacidosis without coma Status: Acute Assessment and Plan: History of diabetes, not on any medication currently. Abdominal pain with nausea vomiting, history of gastroparesis Initial labs elevated blood sugar 325, decreased carbon dioxide 19 and increased anion gap 15 with beta hydroxybutyrate 1.9 Labs except for hyperglycemia corrected after IV fluids and a small dose insulin Anion gap elevation and beta hydroxybutyrate likely due to dehydration from emesis from gastroparesis 10/02: A1C is 9.2%--needs treatment on discharge Fasting glucose was 239 on labs Currently NPO for possible GI intervention? Lantus 30 units ordered SSI high dose ordered Hypoglycemia protocol with ac/hs accu checks 10/03: Fasting glucose 166 diabetic diet consult dm educator 10/04: DM education completed Will order outpatient DM education on discharge Blood glucose has been well controlled during the last couple of days. 10/05: Lantus 30 units BID, SSI high dose Blood glucose ranging 110-227 (2) Foot ulcer, left: Code(s): L97.529 - Non-pressure chronic ulcer of other part of left foot with unspecified severity Status: Acute Assessment and Plan: -been present for a while now Deep ulcer plantar surface of left shalini with purulent appearing center, no obvious drainable abscess -unable to do MRI due to a clip in the chest that would require alterations in protocol -unable to CT with IV contrast as patient has allergy to IV dye -x-ray left foot to assess for possible osteomyelitis -initiate vancomycin, cefepime, Flagyl -wound culture ordered -elevated white blood cell count 17.1 -likely contributory to current nausea/vomiting/DKA scenario 10/02: foot XR shows prominent soft tissue ulcer of the heel no definite radiographic evidence of osteomyelitis. Three-phase radiographic bone scan is more sensitive for osteo and will be ordered. On cefepime, Flagyl, vancomycin May need general surgery consult if bone scan positive for osteomyelitis Wound care consulted Daily wound care ordered with [employer] 10/03: Wound culture growing gram positive cocci in clusters On vancomycin, cefepime Bone scan to be done tomorrow consulted wound care, rec appreciated 10/04: Wound culture is growing staphylococcus pseudintermediu Continue with vancomycin until final bone scan read Blood cultures ordered 10/05: WBC has resolved, afebrile IV vancomycin Blood cultures in progress likely will need lobsterman IV antibiotics---need to discuss further with ID pharmacist after surgery weighs in. (3) Hematemesis: Code(s): K92.0 - Hematemesis Status: Acute Assessment and Plan: Streaks of blood in later emesis episodes Gastroenterology consulted by the emergency department Patient received IV Protonix 80 mg in the ER and will be started on 40 mg twice a day Clear liquid diet, NPO after midnight ACHS fingerstick glucose, high-dose sliding scale insulin 10/02: CT scan of abdomen and pelvis shows wall thickening of distal esophagus consistent with esophagitis. Incidental finding of 14 mm right kidney mass abdominal MRI is recommended. However patient has a clip and is unable to get an MRI here. Also found 2.4 cm mass in the left adrenal gland, likely an adenoma. Umbilical hernia containing fat and bilateral inguinal hernias containing fat. Suspect gastroparesis Will schedule reglan GI will see the patient today 10/03: GI planning EGD on Thursday On carafate and PPI Scheduled reglan
--- NOTE | 2023-10-19 10:59 | PCCDE ---
10/19/23 10:55 am Reached patient by phone. Stating he's doing ok with his blood sugars. Denies questions at this time. Has PCP appt 11/02. Plans on asking for outpatient DSMT; has flyer with our services and contact information. FJ
== END 2023-10-06 18:11 | disposition home or self-care (01) | DRG 380 ==
LOC: ANHED 10:11 → ANH3MEDSUR 16:47 → ANH3MED 19:30
PROVIDERS: Family Medicine; Internal Medicine Gastroenterology; Nurse Practitioner; Admitting Provider Internal Medicine; Emergency Provider Physician Assistant; Visit Provider Nurse Practitioner Acute Care
PROC: 0DJ08ZZ Inspection of Upper Intestinal Tract, Via Natural or Artificial Opening Endoscopic (ICD-10-PCS; CPT 43235; principal; 2023-10-05 16:00)
DX: K22.11 Ulcer of esophagus with bleeding (principal); E11.10 Type 2 diabetes mellitus with ketoacidosis without coma; L97.429 Non-pressure chronic ulcer of left heel and midfoot with unspecified severity; M86.672 Other chronic osteomyelitis, left ankle and foot; E11.69 Type 2 diabetes mellitus with other specified complication; E11.43 Type 2 diabetes mellitus with diabetic autonomic (poly)neuropathy; K31.84 Gastroparesis; E11.621 Type 2 diabetes mellitus with foot ulcer; E86.0 Dehydration; D35.02 Benign neoplasm of left adrenal gland; K21.00 Gastro-esophageal reflux disease with esophagitis, without bleeding; B95.7 Other staphylococcus as the cause of diseases classified elsewhere; Z20.822 Contact with and (suspected) exposure to COVID-19; Z79.4 Long term (current) use of insulin
CPT/HCPCS: 36415; 71046; 73620; 74176; 78315; 80048; 80053; 80202; 81001; 82010; 82948; 83036; 83735; 84100; 84484; 85014; 85018; 85025; 85610; 85730; 86850; 86900; 86901; 87040; 87070; 87077; 87181; 87205; 87637; 88305; 88312; 93005; 96365; 96366; 96375; 99285; A9270; A9503; C9113; G0378; J0692; J1200; J1650; J1815; J1836; J2270; J2405; J2704; J2765; J3370; J3475; J7030; J7120

== ENCOUNTER 2023-10-29 08:11 | Outpatient (RCR) | payer OTHER, SELFPAY ==
[2023-10-23 13:24] VITALS: BMI 27.0
== END 2023-11-13 13:22 | disposition home or self-care (01) ==
LOC: ANHWOC 08:11
PROVIDERS: PCP Emergency Medicine; Visit Provider Podiatrist Foot & Ankle Surgery
DX: L97.422 Non-pressure chronic ulcer of left heel and midfoot with fat layer exposed (principal); E11.40 Type 2 diabetes mellitus with diabetic neuropathy, unspecified; M79.672 Pain in left foot
CPT/HCPCS: 29445; 99214; G0463

== ENCOUNTER 2023-11-03 15:00 | Inpatient (IN) | payer OTHER, SELFPAY ==
[2023-11-03] VITALS (9 sets, daily range): BP systolic 153–185; BP diastolic 65–99; PULSE 94–100; RESP 16–18; TEMP 36.3; O2SAT 99–100; BMI 27.7
--- NOTE | ~2023-11-03 | CT_ITS ---
CT abdomen pelvis wo con Ordering provider: Doug Falk APRN History: 58 years Male with . LLQ/left flank pain . Comparison: October 02, 2023 Technique: CT abdomen and pelvis without IV and without oral contrast. Autom ated exposure control and iterative reconstruction technique were employed. The dose-length product w as 775.23 mGy-cm. Findings: VISUALIZED LOWER CHEST: Normal. UPPER ABDOMINAL ORGANS: Liver: Normal. Gallbladder: Status post cholecystectomy. Spleen: Normal. Stomach/duodenum: Normal. Pancreas: Normal. Adrenals: Left adrenal adenoma measuring 2.3 cm. Kidneys: Hypodensity in the left kidney lower pole may be a cyst or dilated calyces which measures 2. 5 cm. mass cannot be excluded although less likely. Follow-up advised.. PELVIC ORGANS: The bladder is normal. BOWEL AND MESENTERY: Colon: No evidence of diverticulitis.. Normal appendix. Small Bowel: Normal. No obstruction. Peritoneum/mesentery: No free air or free fluid. No mesenteric lymphadenopathy. RETROPERITONEUM: Mild atheromatous disease of the abdominal aorta. No retroperitoneal lymphadenopat hy. MUSCULOSKELETAL: Superficial soft tissues: Left inguinal enlarged lymph node measuring 2.1 x 1.6 cm. Left fat-containi ng small inguinal hernia. Otherwise, The superficial soft tissues are normal. Bones: Age appropriate degenerative changes of the spine. Bilateral sacroiliacs. IMPRESSION: 1. Hypodensity in the left kidney lower pole. Unchanged from previous examination. 2. Left adrenal adenoma.Unchanged from previous examination. Reviewed, dictated and finalized at location A. IMPRESSION: 1. Hypodensity in the left kidney lower pole. Unchanged from previous examinat ion. 2. Left adrenal adenoma.Unchanged from previous examination.
--- NOTE | ~2023-11-03 | XR_ITS ---
EXAM: XR foot LT min 3V DATE: 11/03/2023 18:34 HISTORY: recent hx of osteomyelitis . COMPARISON: 10/03/2023. FINDINGS: Overlying bandage material limits osseous detail. Decreased mineralization. Uncomplicated appearing tibiotalar fusion hardware. Status post partial first and second digit amputations. Irregul ar periosteal reaction along the inferior surface of the calcaneus, deep to a large soft tissue ulcer that overlies the heel. IMPRESSION: Summation limited by osteopenia and overlying bandage material. Findings concerning for d eveloping inferior calcaneal osteomyelitis. Reviewed, dictated and finalized at location K. IMPRESSION: Summation limited by osteopenia and overlying bandage material. Fin dings concerning for developing inferior calcaneal osteomyelitis.
--- NOTE | ~2023-11-03 | XR_ITS ---
EXAMINATION: XR chest 2V Exam Date/Time: 11/03/2023 18:20 CDT HISTORY: FUO Comparison: 10/02/2023. RESULT: Lines, tubes, and devices: Intact sternotomy wires. Atrial occlusion device. Mediastinal surgical cl ips. Cardiac valve replacement. Lungs and pleura: Clear. Cardiomediastinal silhouette: Stable. Other: No acute osseous or upper abdominal finding. IMPRESSION: No acute cardiopulmonary process. Reviewed, dictated and finalized at location K.
--- NOTE | 2023-11-03 15:24 | ED.ABDPAIN ---
HPI - Abdominal Pain General Chief Complaint: Abdominal Pain Stated Complaint: Abd pain, N/V/D Time Seen by Provider: 11/03/23 15:13 History of Present Illness HPI narrative: 58-year-old male recent history of type 2 diabetes, gastroparesis, osteomyelitis, and diverticulitis associated with a GI bleed 1 month ago presents to the emergency room with acute on chronic left lower quadrant abdominal pain. Patient states that he has been experiencing lower abdominal pain since his hospitalization 30 days ago. Pain briefly improved until this morning where it worsened. Associated with nausea, vomiting and diarrhea. Denies fevers. Patient was transported via EMS was given 4 of Zofran which he says did not alleviate his nausea. patient states he fractured his left ankle 4 years ago hunting. Injury required a surgical fusion of the tibiotalar joint hardware. Patient states he has been struggling with a chronic heel ulceration since the initial surgery. Patient is followed by wound management locally. Patient states wound management has been applying a cast over his ankle in changing it once weekly. Most recent wound management note shows the patient had a chronic diabetic ulcer the left plantar heel with no signs and symptoms of infection present at that time. Dressing and a total contact cast applied. Related Data Home Medications Medication Instructions Recorded Confirmed sertraline 100 mg tablet 100 mg PO BID 10/02/23 10/23/23 Allergies Allergy/AdvReac Type Severity Reaction Status Date / Time iodine Allergy Rash Verified 10/23/23 14:04 Review of Systems Review of Systems: ROS unremarkable except for no PMFSH Past Medical History Medical History Epigastric pain Gastroparesis History of diabetes mellitus History of diabetic gastroparesis Leukocytosis Nausea and vomiting in adult Ulcerative esophagitis Surgical History Surgical History History of amputation of toe History of ankle fusion Family History Family History Father Diabetes mellitus Mother Psoriasis Social History Social History Smoking status: Never smoker Alcohol intake: former Substance use: never Do You Feel Safe in your Home?: Yes Lack of Transportation: No Lack of Food: Never True Current Housing: I Have Housing Concerned About Future Housing: No Difficulty Paying Gas/Electric Bills: No Difficulty Paying for Meds: No Currently Unemployed: No Education: Bachelor's Degree Difficulty w/ Childcare or Family Care: No Spiritual care concerns: No Exam Narrative: GENERAL: ill-appearing, well-nourished, morbidly obese, no physical limitations, and in acute distress. HEAD: Normocephalic, atraumatic. EYES: Conjunctivae normal, PERRLA and EOMI. CHEST: Clear to auscultation. No respiratory distress. No wheezes rales or rhonchi. HEART: Regular rate and rhythm. No murmur heard. Normal peripheral pulses. ABDOMEN: Soft, left lower quadrant tenderness, nondistended, normal active bowel sounds. : Normal external male/female exam. BACK: left CVA tenderness EXTREMITIES: Normal range of motion. No edema. No clubbing or cyanosis SKIN: Warm, dry, no rash. cast on left lower leg NEURO: No focal deficits. Alert and oriented x3. MAEW. CN's II-XI intact bilaterally, normal gait PSYCH: Cooperative. angry mood and affect. Course Vital Signs Vital signs: Vital Signs Temperature 36.3 C L 11/03/23 15:02 Pulse Rate 99 11/03/23 15:02 Respiratory Rate 16 11/03/23 15:02 Blood Pressure 175/96 H 11/03/23 15:02 Pulse Oximetry 100 11/03/23 15:02 Temperature 36.3 C L 11/03/23 15:02 Pulse Rate 99 11/03/23 19:22 Respiratory Rate 17 11/03/23 19:22 Blood Pressure 178/
[2023-11-03] MEDS: SODIUM CHLORIDE 0.9% IV 1,000 ML 999 ML IV CONT ×2 (16:00→18:05)
[2023-11-03] MEDS: METOCLOPRAMIDE HCL INJ 10 MG/2 ML VIAL IV PUSH (16:01)
[2023-11-03] MEDS: diphenhydrAMINE HCl INJ 50 MG/ML VIAL 25 MG IV PUSH (16:01)
[2023-11-03] MEDS: fentaNYL CITRATE INJ (*CRX) 100 MCG/2 ML VIAL 50 MCG IV PUSH (16:01)
[2023-11-03 17:21] LABS: Basophils Percent Auto 0.1 % (0.2-1.2); Eosinophils Percent Auto 0.1 % (0-4.4); Hematocrit 46.2 % (42.0-52.0); Hemoglobin 16.5 g/dL (14.0-18.0); Immature Granulocyte Absolute 0.05 K/mm3 (0.00-0.031); Immature Granulocyte Percent A 0.3 % (0-0.5); Lymphocytes Absolute Auto 0.95 K/mm3 (0.9-3.2); Lymphocytes Percent Auto 6.6 % (18.3-44.2); Mean Corpuscular HGB Conc 35.7 g/dl (32-36); Mean Corpuscular Hemoglobin 28.9 pg (26-34); Mean Corpuscular Volume 80.9 fl (80-100); Mean Platelet Volume 9.4 fl (7.4-10.4); Monocytes Absolute Auto 0.8 K/mm3 (0.1-0.6); Monocytes Percent Auto 5.3 % (2.6-8.5); Neutrophils Absolute Auto 12.6 K/mm3 (1.3-6.7); Neutrophils Percent Auto 87.6 % (45.5-73.1); Platelet Count Result 228 k/mm3 (150-375); Red Blood Count 5.71 M/mm3 (4.6-6.20); Red Cell Distribution Width 13.2 % (11.5-14.5); White Blood Count 14.4 K/mm3 (4.5-10.0)
[2023-11-03 17:29] LABS: Lactic Acid Reflex 2.3 mmol/L (0.7-2.0)
[2023-11-03 17:32] LABS: Alanine Aminotransferase 20 U/L (6-50); Albumin Level 4.9 g/dL (3.5-5.1); Alkaline Phosphatase 111 U/L (38-126); Anion Gap 12 mmol/L (4-12); Aspartate Amino Transferase 21 U/L (17-59); Blood Urea Nitrogen 11 mg/dL (9-20); Calcium 10.4 mg/dL (8.4-10.2); Carbon Dioxide 19 mmol/L (22-30); Chloride 110 mmol/L (98-107); Estimated CRCL calculation 114 ml/min; Estimated Glomerular Filt Rate > 60; Glucose 194 mg/dL (65-110); Lipase 36 U/L (23-300); Potassium 3.7 mmol/L (3.4-5.0); Sodium 141 mmol/L (137-145)
[2023-11-03 18:17] LABS: Appearance Urine Clear (Clear); Bacteria Urine None Seen /hpf; Bilirubin Urine Negative (Negative); Blood Urine Negative (Negative); Color Urine Yellow (Yellow); Glucose Urine UA 1+ mg/dL (Negative); Ketones Urine 2+ mg/dL (Negative); Leukocyte Esterase Ur Negative LEU/UL (Negative); Nitrate Urine Negative (Negative); Non Pathogenic Casts 0-2; Protein Urine Trace mg/dL (Negative); RBC Urine 0-2 /hpf (0-2); Specific Grav Ur 1.017 (1.001-1.035); Squamous Epithelial Cell Urine None Seen /hpf (Few); Urobilinogen Urine 0.2 mg/dL (<2.0); WBC Urine 0-5 /hpf (0-3); pH Urine 6.5 (5.0-9.0)
[2023-11-03 18:52] LABS: Add Urine Microscopic? YES
[2023-11-03] MEDS: ONDANSETRON INJ 4 MG/2 ML VIAL IV PUSH (18:52)
--- NOTE | 2023-11-03 19:10 | PC.NURSE ---
Report given to LIA Dunn
[2023-11-03] MEDS: LABETALOL HCL INJ 100 MG/20 ML VIAL 10 MG IV PUSH (19:20)
[2023-11-03] MEDS: PIPERACILLN/TAZ 3.375GM/NS50ML 3.375 GM/50 ML BAG IVPB (20:04)
[2023-11-03 20:19] LABS: Reflex Lactic Acid Yes or No Add Lactic
[2023-11-03 21:13] LABS: Lactic Acid 3.1 mmol/L (0.7-2.0)
--- NOTE | 2023-11-03 21:35 | ADMGEN ---
This patient, Charles Castorena, was admitted to Medical Room 260-. Patient/family oriented to hospital policies and general routines including ID bracelet, bed and alarms, visiting hours, pain management, procedures, bathroom and other care routines, personal items, smoking policy, room service/diet, and visiting hours. Information on how to activate the Rapid Response Team has been discussed. Patient/Family are encouraged to report perceived risks to care and to ask questions if they do not understand what they are told or what they should do.
[2023-11-03] MEDS: VANCOMYCIN 1,250 MG/NS 250 ML 1,250 MG/250 ML BAG 166.67 MG IVPB ×2 (21:38)
--- NOTE | 2023-11-03 23:14 | PM.IMHP ---
H&P: HPI History of Present Illness Date/Time: 11/03/23 23:14 Chief Complaint: Nausea and vomiting Narrative: This is a 58-year-old male with a PMH insulin-dependent diabetes mellitus, gastroparesis, chronic diabetic left heel ulcer status post tibiotalar fusion hardware after a left ankle fracture. Patient recently discharged from [facility] on 10/06/2023, suspected the left heel ulcer has chronic osteomyelitis. He has been seeing a green building engineer, lives in [place] with his . Recently moved this year from [place]. On 10/23/2023 he was seen by wound nurse and at that time had a total contact cast placed. ER requesting admission for osteomyelitis and elevated white count with left shift. ER evaluation demonstrates WBC count 14,400, no bandemia. Afebrile. Hemodynamically stable. Left foot x-ray concerning for inferior calcaneal osteomyelitis. This was seen previously. Review of Systems Review of Systems: All systems reviewed & are unremarkable except as noted in HPI and below (Subjective) [facility] Past Medical History Medical History Epigastric pain Gastroparesis History of diabetes mellitus History of diabetic gastroparesis Leukocytosis Nausea and vomiting in adult Ulcerative esophagitis Surgical History Surgical History History of amputation of toe History of ankle fusion Family History Family History Father Diabetes mellitus Mother Psoriasis Social History Social History Smoking status: Never smoker Alcohol intake: never Substance use: current Substance use type: marijuana Do You Feel Safe in your Home?: Yes Lack of Transportation: No Lack of Food: Never True Current Housing: I Have Housing Concerned About Future Housing: No Difficulty Paying Gas/Electric Bills: No Difficulty Paying for Meds: No Currently Unemployed: No Education: High School Diploma/GED Difficulty w/ Childcare or Family Care: No Spiritual care concerns: No Meds Home Medications and Allergies Home Medications Medication Instructions Recorded Confirmed Type sertraline 100 mg tablet 100 mg PO BID 10/02/23 11/03/23 History insulin glargine U-300 conc 300 30 unit (0.1 mL) subcut BID #4.5 mL 10/06/23 11/03/23 Rx unit/mL (1.5 mL) subcutaneous pen (Toujeo SoloStar U-300 Insulin) insulin lispro 100 unit/mL 1 sliding scale dose subcut .TID 10/06/23 11/03/23 Rx subcutaneous solution (Humalog with meals #10 mL U-100 Insulin) aspirin 81 mg tablet 81 mg PO DAILY 11/03/23 11/03/23 History silver 1.2 %-foam bandage 8 X 1 ea topical WEEKLY diabetic foot 11/03/23 11/03/23 History 5.5 (Aquacel AG Foam Heel) ulcer Allergies Allergy/AdvReac Type Severity Reaction Status Date / Time iodine Allergy Rash Verified 10/23/23 14:04 Vital Signs Vital Signs - 24 hr 11/03/23 15:02 11/03/23 15:45 11/03/23 16:00 Temperature 97.3 F L Pulse Rate 99 94 95 Respiratory Rate 16 18 18 Blood Pressure 175/96 H 159/83 H 185/99 H Pulse Oximetry 100 100 100 11/03/23 16:45 11/03/23 18:05 11/03/23 19:00 Temperature Pulse Rate 96 99 99 Respiratory Rate 18 18 18 Blood Pressure 183/96 H 181/93 H 183/99 H Pulse Oximetry 100 100 100 11/03/23 19:22 11/03/23 20:04 11/03/23 21:00 Temperature 97.4 F L Pulse Rate 99 97 100 Respiratory Rate 17 18 18 Blood Pressure 178/91 H 153/98 H 160/65 H Pulse Oximetry 100 100 99 Exam Const: General: comfortable and no acute distress Eyes: Pupils: Equal, round and reactive pupils present Neck: Neck: supple Resp: Effort & Inspection: normal respiratory effort Auscultation: clear to auscultation bilaterally Cardio: Rate: regular rate Rhythm: regular rhythm Heart sounds: no gallops, no murmurs and no rubs GI: GI Palp: Ye
[2023-11-03 23:48] LABS: Glucose Point of Care 250 mg/dl (65-105)
[2023-11-04] MEDS: ONDANSETRON INJ 4 MG/2 ML VIAL IV PUSH (00:22)
[2023-11-04] MEDS: METOCLOPRAMIDE HCL INJ 10 MG/2 ML VIAL 5 MG IV PUSH ×4 (00:22→17:34)
[2023-11-04] MEDS: SODIUM CHLORIDE 0.9% IV 1,000 ML 100 ML IV CONT ×2 (00:22→17:34)
[2023-11-04] MEDS: DICYCLOMINE HCL INJ 20 MG/2 ML VIAL IM (04:22)
[2023-11-04 05:09] LABS: Basophils Percent Auto 0.1 % (0.2-1.2); Hematocrit 40.3 % (42.0-52.0); Hemoglobin 14.4 g/dL (14.0-18.0); Immature Granulocyte Absolute 0.04 K/mm3 (0.00-0.031); Immature Granulocyte Percent A 0.3 % (0-0.5); Lymphocytes Percent Auto 6.7 % (18.3-44.2); Mean Corpuscular HGB Conc 35.7 g/dl (32-36); Mean Corpuscular Hemoglobin 28.8 pg (26-34); Mean Corpuscular Volume 80.6 fl (80-100); Mean Platelet Volume 9.2 fl (7.4-10.4); Monocytes Absolute Auto 0.8 K/mm3 (0.1-0.6); Monocytes Percent Auto 5.5 % (2.6-8.5); Neutrophils Percent Auto 87.4 % (45.5-73.1); Platelet Count Result 223 k/mm3 (150-375); Red Cell Distribution Width 13.4 % (11.5-14.5); White Blood Count 14.8 K/mm3 (4.5-10.0)
[2023-11-04 05:23] VITALS: BP 121/73; PULSE 104; RESP 18; TEMP 36.9; O2SAT 96
[2023-11-04 05:24] LABS: Lactic Acid Reflex 1.3 mmol/L (0.7-2.0)
[2023-11-04] MEDS: MORPHINE SULFATE (*CRX) 2 MG/ML INJ 1 MG IV PUSH ×3 (05:41→19:59)
[2023-11-04 05:56] LABS: Procalcitonin 0.1 ng/mL
[2023-11-04 05:57] LABS: Glucose Point of Care 268 mg/dl (65-105)
[2023-11-04] MEDS: ASPIRIN 81 MG ENTERIC TABLET PO (08:37)
[2023-11-04] MEDS: HEPARIN SODIUM 5,000 UNITS/ML VIAL 5000 UNITS SUB-Q ×2 (08:37→20:03)
[2023-11-04] MEDS: PANTOPRAZOLE SODIUM IV 40 MG VIAL IV PUSH (08:37)
[2023-11-04] MEDS: INSULIN GLARGINE (*BKC) 100 UNITS/ML 24 UNITS SUB-Q ×2 (08:37→17:34)
[2023-11-04 11:30] VITALS: BMI 27.7
[2023-11-04 12:19] LABS: Glucose Point of Care 203 mg/dl (65-105)
[2023-11-04 14:07] VITALS: BP 145/76; PULSE 88; RESP 17; TEMP 36.4; O2SAT 99
--- NOTE | 2023-11-04 16:33 | WPDPN ---
Progress Note: A&P Assessment and Plan (1) Gastroparesis: Code(s): K31.84 - Gastroparesis Status: Acute (2) Chronic osteomyelitis: Code(s): M86.60 - Other chronic osteomyelitis, unspecified site Status: Acute (3) Leukocytosis: Code(s): D72.829 - Elevated white blood cell count, unspecified Status: Acute (4) Lactic acidosis: Code(s): E87.20 - Acidosis, unspecified Status: Acute Plan Interval history 11/04/2023 : Left foot x-ray is concerning for OM, patient is seen by hand washer and wound was treated and cast is placed on the left foot. Patient is being treated for presumed OM with Zosyn and vancomycin will need terminologist IV abx. will follow and plan. upon patient lactic acid was elevated most likely due to stress and dehydration unlikely due to sepsis. patient with his to uncontrolled DM and developed diabetes gastroparesis, clinically stable, encourage patient to increase fluids, fiber and fruits in his diet. Subjective Date/time seen: 11/04/23 16:33 Interval history: Chief Complaint: Nausea and vomiting H&V-CFT-Ejatymqus: This is a 58-year-old male with a H insulin-dependent diabetes mellitus, gastroparesis, chronic diabetic left heel ulcer status post tibiotalar fusion hardware after a left ankle fracture. Patient recently discharged from [facility] on 10/06/2023, suspected the left heel ulcer has chronic osteomyelitis. He has been seeing a hand washer, lives in [place] with his . Recently moved this year from [place]. On 10/23/2023 he was seen by wound nurse and at that time had a total contact cast placed. ER requesting admission for osteomyelitis and elevated white count with left shift. ER evaluation demonstrates WBC count 14,400, no bandemia. Afebrile. Hemodynamically stable. Left foot x-ray concerning for inferior calcaneal osteomyelitis. This was seen previously. Interval history 11/04/2023 : Left foot x-ray is concerning for OM, patient is seen by hand washer and wound was treated and cast is placed on the left foot. Patient is being treated for presumed OM with Zosyn and vancomycin will need terminologist IV abx. will follow and plan. upon patient lactic acid was elevated most likely due to stress and dehydration unlikely due to sepsis. patient with his to uncontrolled DM and developed diabetes gastroparesis, clinically stable, encourage patient to increase fluids, fiber and fruits in his diet. Exam Narrative: General: patient is comfortable NAD HEENT: eyes are clear nonicteric, normocephalic, atraumatic. Oral mucosa moist. RESP: CTA HEART: RR S1S2 LUNGS: CTA ABD:BS+, diffusely tender. SKIN: no obvious rash EXTREMITIES:left leg with wound cast. NEURO:A&O grossly intact PSYCH: Pleasant and cooperative with normal mood and affect Objective Data Vital Signs Vital Signs: Vital Signs - 24 hr 11/03/23 16:45 11/03/23 18:05 11/03/23 19:00 Temperature Pulse Rate 96 99 99 Respiratory Rate 18 18 18 Blood Pressure 183/96 H 181/93 H 183/99 H Pulse Oximetry 100 100 100 Oxygen Delivery 11/03/23 19:22 11/03/23 20:04 11/03/23 21:00 Temperature 36.3 C L Pulse Rate 99 97 100 Respiratory Rate 17 18 18 Blood Pressure 178/91 H 153/98 H 160/65 H Pulse Oximetry 100 100 99 Oxygen Delivery 11/03/23 21:35 11/04/23 05:23 11/04/23 08:00 Temperature 36.9 C Pulse Rate 104 H Respiratory Rate 18 Blood Pressure 121/73 Pulse Oximetry 96 Oxygen Delivery Room Air Room Air 11/04/23 14:07 Temperature 36.4 C L Pulse Rate 88 Respiratory Rate 17 Blood Pressure 145/76 H Pulse Oximetry 99 Oxygen Delivery Intake/Output Intake/Output: Intake & Output 11/01/23 11/02/23 11/03/23 11/04/23 23:59 23:59 23:59 23:59 Intake Total 2300 730 Output Total 300 600 Balance 1999 130 Meds/Results Medications: Active Medications Generic Name Dose Route Start Last Admin Trade Name Freq PRN Reason Stop Dose Admin
[2023-11-04 18:27] LABS: Glucose Point of Care 224 mg/dl (65-105)
[2023-11-04 20:29] LABS: Toxigenic C. Diff POSITIVE (NEGATIVE)
[2023-11-04 21:11] VITALS: BP 153/89; PULSE 90; RESP 17; TEMP 36.8; O2SAT 98
[2023-11-04] MEDS: FIDAXOMICIN 200 MG TABLET PO (22:43)
[2023-11-05 00:09] LABS: Glucose Point of Care 168 mg/dl (65-105)
[2023-11-05] MEDS: METOCLOPRAMIDE HCL INJ 10 MG/2 ML VIAL 5 MG IV PUSH ×5 (00:13→23:19)
[2023-11-05] MEDS: MORPHINE SULFATE (*CRX) 2 MG/ML INJ 1 MG IV PUSH ×4 (00:14→21:29)
[2023-11-05 02:23] LABS: Glucose Point of Care 227 mg/dl (65-105)
[2023-11-05] MEDS: SODIUM CHLORIDE 0.9% IV 1,000 ML 100 ML IV CONT ×2 (05:27→17:41)
[2023-11-05 05:34] VITALS: BP 114/75; PULSE 76; RESP 17; TEMP 36.8; O2SAT 98
[2023-11-05 05:35] LABS: Glucose Point of Care 171 mg/dl (65-105)
--- NOTE | 2023-11-05 05:54 | PC.NURSE ---
DOCUMENTATION ON THIS PATIENT COMPLETED BY HANS TORRES LPN. REVIEWED AND MONITORED BY MYSELF MESSI KIM RN
[2023-11-05 08:00] VITALS: BP 135/86; PULSE 75; RESP 18; TEMP 36.8; O2SAT 95
[2023-11-05] MEDS: INSULIN GLARGINE (*BKC) 100 UNITS/ML 24 UNITS SUB-Q ×2 (09:32→17:40)
[2023-11-05] MEDS: PANTOPRAZOLE SODIUM IV 40 MG VIAL IV PUSH (09:32)
[2023-11-05] MEDS: FIDAXOMICIN 200 MG TABLET PO ×2 (09:32→21:21)
[2023-11-05] MEDS: ASPIRIN 81 MG ENTERIC TABLET PO (09:32)
[2023-11-05] MEDS: HEPARIN SODIUM 5,000 UNITS/ML VIAL 5000 UNITS SUB-Q ×2 (09:32→21:35)
[2023-11-05 11:53] LABS: Glucose Point of Care 210 mg/dl (65-105)
[2023-11-05 14:00] VITALS: BP 149/81; PULSE 73; RESP 18; TEMP 37.1; O2SAT 100
[2023-11-05 15:51] VITALS: BP 149/81; PULSE 73; RESP 18; TEMP 37.1; O2SAT 100
--- NOTE | 2023-11-05 16:22 | WPDPN ---
Progress Note: A&P Assessment and Plan (1) Gastroparesis: Code(s): K31.84 - Gastroparesis Status: Acute (2) Chronic osteomyelitis: Code(s): M86.60 - Other chronic osteomyelitis, unspecified site Status: Acute (3) Leukocytosis: Code(s): D72.829 - Elevated white blood cell count, unspecified Status: Acute (4) Lactic acidosis: Code(s): E87.20 - Acidosis, unspecified Status: Acute Plan Interval history 11/04/2023 : Left foot x-ray is concerning for OM, patient is seen by air twister winder and wound was treated and cast is placed on the left foot. Patient is being treated for presumed OM with Zosyn and vancomycin will need intermission coordinator IV abx. will follow and plan. upon patient lactic acid was elevated most likely due to stress and dehydration unlikely due to sepsis. patient with his to uncontrolled DM and developed diabetes gastroparesis, clinically stable, encourage patient to increase fluids, fiber and fruits in his diet. Interval history 11/05/2023 Left foot x-ray is concerning for OM, patient is seen by air twister winder and wound was treated and cast is placed on the left foot. Patient is being treated for presumed OM with Zosyn and vancomycin will need halfway IV abx. wound team will see the patient and discuss with his air twister winder anf further recommendation to follow as patient has developed C. difff and being treated with fidaxomicin, will monitor. Subjective Date/time seen: 11/05/23 16:22 Interval history: Chief Complaint: Nausea and vomiting H&V-GNB-Tfrmnmphx: This is a 58-year-old male with a H insulin-dependent diabetes mellitus, gastroparesis, chronic diabetic left heel ulcer status post tibiotalar fusion hardware after a left ankle fracture. Patient recently discharged from [facility] on 10/06/2023, suspected the left heel ulcer has chronic osteomyelitis. He has been seeing a air twister winder, lives in [place] with his . Recently moved this year from [place]. On 10/23/2023 he was seen by wound nurse and at that time had a total contact cast placed. ER requesting admission for osteomyelitis and elevated white count with left shift. ER evaluation demonstrates WBC count 14,400, no bandemia. Afebrile. Hemodynamically stable. Left foot x-ray concerning for inferior calcaneal osteomyelitis. This was seen previously. Interval history 11/04/2023 : Left foot x-ray is concerning for OM, patient is seen by air twister winder and wound was treated and cast is placed on the left foot. Patient is being treated for presumed OM with Zosyn and vancomycin will need intermission coordinator IV abx. will follow and plan. upon patient lactic acid was elevated most likely due to stress and dehydration unlikely due to sepsis. patient with his to uncontrolled DM and developed diabetes gastroparesis, clinically stable, encourage patient to increase fluids, fiber and fruits in his diet. Interval history 11/05/2023 Left foot x-ray is concerning for OM, patient is seen by air twister winder and wound was treated and cast is placed on the left foot. Patient is being treated for presumed OM with Zosyn and vancomycin will need intermission coordinator IV abx. wound team will see the patient and discuss with his air twister winder anf further recommendation to follow as patient has developed C. difff and being treated with fidaxomicin, will monitor. Review of Systems Review of Systems: All systems reviewed & are unremarkable except as noted in HPI and below (Subjective) Exam Narrative: General: patient is comfortable NAD HEENT: eyes are clear nonicteric, normocephalic, atraumatic. Oral mucosa moist. RESP: CTA HEART: RR S1S2 LUNGS: CTA ABD:BS+, diffusely tender. SKIN: no obvious rash EXTREMITIES:left leg with wound cast. NEURO:A&O grossly intact PSYCH: Pleasant and cooperative with normal mood and affect Objective Data Vital Signs Vital Signs: Vital Signs - 24 hr 11/04/23 21:11 11/04/23 20:00 11/05/23 05:34 Temperature 36.8 C 36.8 C
[2023-11-05 18:03] LABS: Glucose Point of Care 170 mg/dl (65-105)
[2023-11-05] MEDS: PIPERACILLN/TAZ 3.375GM/NS50ML 3.375 GM/50 ML BAG IVPB ×2 (18:16→23:20)
[2023-11-05 20:36] VITALS: O2SAT 97
[2023-11-05] MEDS: MELATONIN 3 MG TABLET PO (21:20)
[2023-11-05] MEDS: VANCOMYCIN 1,500 MG/NS 500 ML 1,500 MG/500 ML BAG 250 MG IVPB (21:21)
[2023-11-05 21:46] VITALS: BP 148/77; PULSE 81; RESP 20; TEMP 37; O2SAT 97
[2023-11-05] MEDS: DICYCLOMINE HCL 10 MG CAPSULE 20 MG PO (23:18)
[2023-11-06] VITALS: BP 129/79; PULSE 76; RESP 20; TEMP 36.9; O2SAT 97
[2023-11-06 00:22] LABS: Glucose Point of Care 150 mg/dl (65-105)
[2023-11-06] MEDS: SODIUM CHLORIDE 0.9% IV 1,000 ML 100 ML IV CONT (03:36)
[2023-11-06 04:06] VITALS: BP 143/78; PULSE 66; RESP 20; TEMP 36.7; O2SAT 97
[2023-11-06 05:23] LABS: Glucose Point of Care 151 mg/dl (65-105)
[2023-11-06] MEDS: PIPERACILLN/TAZ 3.375GM/NS50ML 3.375 GM/50 ML BAG IVPB ×2 (06:05→12:23)
[2023-11-06] MEDS: METOCLOPRAMIDE HCL INJ 10 MG/2 ML VIAL 5 MG IV PUSH ×2 (06:05→12:24)
[2023-11-06] MEDS: DICYCLOMINE HCL 10 MG CAPSULE 20 MG PO (06:16)
[2023-11-06 06:25] LABS: Hematocrit 38.2 % (42.0-52.0); Hemoglobin 12.8 g/dL (14.0-18.0); Mean Corpuscular HGB Conc 33.5 g/dl (32-36); Mean Corpuscular Hemoglobin 28.3 pg (26-34); Mean Corpuscular Volume 84.5 fl (80-100); Mean Platelet Volume 9.2 fl (7.4-10.4); Platelet Count Result 187 k/mm3 (150-375); Red Blood Count 4.52 M/mm3 (4.6-6.20); Red Cell Distribution Width 12.9 % (11.5-14.5); White Blood Count 8.5 K/mm3 (4.5-10.0)
[2023-11-06 06:33] LABS: Anion Gap 7 mmol/L (4-12); Blood Urea Nitrogen 10 mg/dL (9-20); Calcium 8.9 mg/dL (8.4-10.2); Carbon Dioxide 21 mmol/L (22-30); Chloride 111 mmol/L (98-107); Estimated CRCL calculation 131 ml/min; Estimated Glomerular Filt Rate > 60; Glucose 175 mg/dL (65-110); Magnesium 1.8 mg/dL (1.6-2.3); Potassium 3.2 mmol/L (3.4-5.0); Sodium 139 mmol/L (137-145)
[2023-11-06] MEDS: VANCOMYCIN 1,500 MG/NS 500 ML 1,500 MG/500 ML BAG 250 MG IVPB (07:36)
[2023-11-06 07:47] LABS: Glucose Point of Care 196 mg/dl (65-105)
[2023-11-06] MEDS: ASPIRIN 81 MG ENTERIC TABLET PO (09:28)
[2023-11-06] MEDS: FIDAXOMICIN 200 MG TABLET PO (09:28)
[2023-11-06] MEDS: INSULIN GLARGINE (*BKC) 100 UNITS/ML 24 UNITS SUB-Q (09:29)
[2023-11-06] MEDS: PANTOPRAZOLE SODIUM IV 40 MG VIAL IV PUSH (09:29)
[2023-11-06] MEDS: HEPARIN SODIUM 5,000 UNITS/ML VIAL 5000 UNITS SUB-Q (09:29)
[2023-11-06 10:00] VITALS: BMI 27.7
--- NOTE | 2023-11-06 11:09 | PM.CNGS ---
Assessment and Plan Assessment and plan (1) Acute osteomyelitis of left foot: Code(s): M86.172 - Other acute osteomyelitis, left ankle and foot Status: Acute Assessment and Plan: I have reviewed the imaging during this admission as well as the patient's prior admission and discussed treatment options with the patient. He has a chronic wound on the plantar surface of his left heel and has evidence of osteomyelitis on imaging. He has been dealing with this wound for many years and does not want to continue attempted limb salvage. He is wanting to consider amputation to prevent any further infectious complications. I have discussed both continuing current treatment options and amputation with the patient in detail. I discussed that amputation does offer the chance complete healing and ambulation with a prosthesis but some people still deal with multiple problems including phantom limb pain, difficulties ambulating, wound healing problems with the amputation site, and other potential problems. Patient understands these risks and would like to proceed with amputation. I have recommended left below-knee amputation. If patient stays in the hospital for continued treatment of the C diff colitis, then will consider amputation during this admission. He also could be discharged this weekend if improved from the standpoint of the C diff colitis and in this scenario we will arrange for left below-knee amputation as an outpatient. (2) Chronic osteomyelitis: Code(s): M86.60 - Other chronic osteomyelitis, unspecified site Status: Acute (3) Insulin dependent diabetes mellitus: Status: Acute (4) C. difficile colitis: Code(s): A04.72 - Enterocolitis due to Clostridium difficile, not specified as recurrent Status: Acute History of Present Illness Consult details Consult date: 11/06/23 Reason for consult: other (left heel osteomyelitis) Requesting physician: Flakito Tolentino MD Narrative: This is a 58-year-old man who I am asked to see for chronic left heel osteomyelitis. He has presented with chronic osteomyelitis of the left heel. Patient states that he has been experiencing this for about 4 years. He has been on multiple rounds of IV antibiotics and has seen multiple specialists in the past. He was treated down in [place] for this. At 1 time he said that this almost completely healed but he did notice a recurrent wound after doing some heavy physical activity and this has never healed since then. He was seen a registered phlebotomist part time once he moved appear [facility] and has been continuing local treatment. He keeps having recurrent infections in this area and is tired of dealing with chronic wounds. He has no prior history of peripheral vascular disease. He did have to have to toes partially amputated due to wounds that developed while the foot was in a walking boot. He also has insulin-dependent diabetes. During this admission he was placed on IV antibiotics but developed diarrhea and was found to have C diff. he is currently being treated for C diff. Review of Systems Review of Systems: All systems reviewed & are unremarkable except as noted in HPI and below Eyes: Eyes: Denies change in vision ENT: Denies hearing loss, Denies neck pain and Denies sore throat Cardiovascular: Cardiovascular: Denies chest pain and Denies dyspnea Respiratory: Respiratory: Denies cough, Denies dyspnea and Denies wheezing Gastrointestinal: Gastrointestinal: Reports diarrhea Genitourinary: Genitourinary: Denies hematuria and Denies dysuria Musculoskeletal: Musculoskeletal: Reports as per HPI Allergic/Immunologic: Allergic/Immunologic: Denies wheezing [facility] Past Medical History Medical History Epigastric pain Gastroparesis History of diabetes mellitus History of diabetic gastroparesis Leukocytosis Nausea and vomiting in adult Ulcerative esophagitis Surgical History
[2023-11-06 11:47] LABS: Glucose Point of Care 205 mg/dl (65-105)
[2023-11-06 14:00] VITALS: BP 160/96; PULSE 74; RESP 16; TEMP 36.8; O2SAT 100
[2023-11-06] MEDS: POTASSIUM CHLORIDE 20 MEQ PACKET (FOR LIQUID) 40 MEQ PO (14:16)
--- NOTE | 2023-11-06 15:08 | PM.DS ---
DS: Admitting Diagnosis Discharge Date 11/06/2023 Admitting Diagnosis nausea and vomiting DS: Discharge Diagnosis Discharge Diagnosis (1) Chronic osteomyelitis: Code(s): M86.60 - Other chronic osteomyelitis, unspecified site Status: Acute (2) C. difficile colitis: Code(s): A04.72 - Enterocolitis due to Clostridium difficile, not specified as recurrent Status: Acute DS: Summary Hospital Course Hospital Course: Patient is instructed avoid direct contact family members and general public, avoid going to public, hygiene is very important and follow universal precautions. Please follow up with your primary care provider as soon as possible, please let your primary care provider know you have C. Diff. Please contact Dr. Cadena office for futher instruction. You are being discharged at your requests as your need help at home and you need to take care some personal business before your planned surgery. patient was seen by Dr. Cadena was given option to stay in the hospital until ThursdayNovember 08 for amputation of leg-ankle however patient is ill at home has dementia, patient is instructed wear gloves and personal hygiene is very important. Interval history 11/04/2023 : Left foot x-ray is concerning for OM, patient is seen by painter touch up and wound was treated and cast is placed on the left foot. Patient is being treated for presumed OM with Zosyn and vancomycin will need penitentiary IV abx. will follow and plan. upon patient lactic acid was elevated most likely due to stress and dehydration unlikely due to sepsis. patient with his to uncontrolled DM and developed diabetes gastroparesis, clinically stable, encourage patient to increase fluids, fiber and fruits in his diet. Interval history 11/05/2023 Left foot x-ray is concerning for OM, patient is seen by painter touch up and wound was treated and cast is placed on the left foot. Patient is being treated for presumed OM with Zosyn and vancomycin will need penitentiary IV abx. wound team will see the patient and discuss with his painter touch up anf further recommendation to follow as patient has developed C. difff and being treated with fidaxomicin, will monitor. patient is insisting to be discharged today to take care of who is ill and has dementia. will discharge home on Levaquin and fidaxomicin. Time Spent with Patient Time attestation: Total time spent providing and/or coordinating discharge services: Exam Narrative: General: patient is comfortable NAD HEENT: eyes are clear nonicteric, normocephalic, atraumatic. Oral mucosa moist. RESP: CTA HEART: RR S1S2 LUNGS: CTA ABD:BS+, diffusely tender. SKIN: no obvious rash EXTREMITIES:left leg with wound cast. NEURO:A&O grossly intact PSYCH: Pleasant and cooperative with normal mood and affect DS: Data Data Completed and Pending Labs on day of discharge: Labs from last 24 hours 11/06/23 11/06/23 11/06/23 11:44 07:43 06:04 WBC 8.5 RBC 4.52 L Hgb 12.8 L Hct 38.2 L MCV 84.5 MCH 28.3 MCHC 33.5 RDW 12.9 Plt Count 187 MPV 9.2 Sodium 139 Potassium 3.2 L Chloride 111 H Carbon Dioxide 21 L Anion Gap 7 BUN 10 Creatinine 0.60 L Estim Creat Clear Calc 131 Estimated GFR > 60 Glucose 175 H POC Capillary Glucose 205 H 196 H Calcium 8.9 Magnesium 1.8 11/06/23 11/06/23 11/05/23 04:09 00:18 18:00 WBC RBC Hgb Hct MCV MCH MCHC RDW Plt Count MPV Sodium Potassium Chloride Carbon Dioxide Anion Gap BUN Creatinine Estim Creat Clear Calc Estimated GFR Glucose POC Capillary Glucose 151 H 150 H 170 H Calcium Magnesium Discharge Plan Discharge Attending physician on discharge: Flakito Tolentino Consulting providers: Jac Cadena Discharging Clinician: Flakito Tolentino Patient Disposition: Home, Self-Care Activity: juan david zambrano
--- NOTE | 2023-11-23 16:08 | PCCDE ---
11/23/23 3:55 PM ? Followed up with patient by phone. Braden states he?s focusing on healing. Has new PCP appt Thu, (moved here from [place]) follow up with surgeon Thursday. DM plan is also to get referred to Endo office. Discussed likely wait for initial endo appt and enc?d to talk with Dr. Diop re: DSMT/MNT referral in the meantime. ?Pt receptive. Denies any DM related questions at this time. FJ
== END 2023-11-06 16:00 | disposition home or self-care (01) | DRG 540 ==
LOC: ANHED 19:57 → ANH2MED 20:35
PROVIDERS: Admitting Provider General Practice; Emergency Provider Nurse Practitioner Family; PCP Emergency Medicine; Visit Provider Family Medicine
DX: M86.672 Other chronic osteomyelitis, left ankle and foot (principal); A04.72 Enterocolitis due to Clostridium difficile, not specified as recurrent; E87.20 Acidosis, unspecified; L97.429 Non-pressure chronic ulcer of left heel and midfoot with unspecified severity; D72.829 Elevated white blood cell count, unspecified; E11.43 Type 2 diabetes mellitus with diabetic autonomic (poly)neuropathy; E11.621 Type 2 diabetes mellitus with foot ulcer; E11.65 Type 2 diabetes mellitus with hyperglycemia; K31.84 Gastroparesis; Z79.4 Long term (current) use of insulin; Z79.82 Long term (current) use of aspirin; Z89.422 Acquired absence of other left toe(s)
CPT/HCPCS: 36415; 71046; 73630; 74176; 80048; 80053; 81001; 82948; 83605; 83690; 83735; 84145; 85025; 85027; 87493; 96361; 96365; 96367; 96374; 96375; 96376; 99285; A9270; G0378; J0500; J1200; J1644; J1815; J2270; J2405; J2470; J2543; J2765; J3010; J3370; J7030

== ENCOUNTER 2023-11-08 19:24 | Inpatient (IN) | payer OTHER, SELFPAY ==
--- NOTE | ~2023-11-08 | XR_ITS ---
EXAMINATION: XR chest 2V Exam Date/Time: 11/08/2023 20:05 CDT HISTORY: chest pain WITH CHILLS Comparison: 11/03/2023. RESULT: Lines, tubes, and devices: Intact sternotomy wires. Atrial occlusion device. Mediastinal surgical cl ips. Cardiac valve replacement. Lungs and pleura: Clear. Cardiomediastinal silhouette: Stable. Other: No acute osseous or upper abdominal finding. IMPRESSION: No acute cardiopulmonary process. Reviewed, dictated and finalized at location K.
[2023-11-08 19:27] VITALS: BP 210/106; PULSE 93; RESP 24; TEMP 36.4; O2SAT 100
--- NOTE | 2023-11-08 19:48 | ECG_ITS ---
Test Date: 2023-11-08 20:00:50 Measurements Intervals [place] Rate: 77 P: -77 DC: 152 QRS: 60 QRSD: 102 T: 64 QT: 408 QTc: 464 Interpretive Statements ECTOPIC ATRIAL RHYTHM CANNOT R/O SEPTAL INFARCT, AGE INDETERMINATE BASELINE WANDER- I, II, III ABNORMAL ECG Compared to ECG 10/03/2023 11:54:50 Ectopic atrial rhythm now present Electronically Signed On 11-08-2023 20:47:39 CDT by Nadeem Wheeler D.O.
--- NOTE | 2023-11-08 19:53 | ED.ABDPAIN ---
HPI - Abdominal Pain General Chief Complaint: Abdominal Pain Stated Complaint: gastroparecis Time Seen by Provider: 11/08/23 19:42 History of Present Illness HPI narrative: Patient is a 58-year-old male with history of diabetes, gastroparesis, CAD s/p 2 vessel CABG, aortic valve replacement, chronic osteomyelitis in his left heel, currently being treated for C. diff here with what he describes as a gastroparesis attack. He states this is his 3rd episode in the last 1 month. He notes it is associated with significant nausea, vomiting and abdominal pain. This episode began a few hours ago. He got zofran on arrival and notes that has stopped his vomiting but not improved his pain and discomfort. He denies any associated chest pain. He does note that he was diagnosed with c. diff on his last admission, has been adherent to his antibiotic regimen at home. He notes that there is a plan to have his foot amputated due to chronic osteomyelitis however it is not currently scheduled. Related Data Home Medications Medication Instructions Recorded Confirmed sertraline 100 mg tablet 100 mg PO BID 10/02/23 11/09/23 aspirin 81 mg tablet 81 mg PO DAILY 11/03/23 11/09/23 Allergies Allergy/AdvReac Type Severity Reaction Status Date / Time iodine Allergy Rash Verified 10/23/23 14:04 Review of Systems Review of Systems: All systems reviewed & are unremarkable except as noted in HPI and below PMFSH Past Medical History Medical History Epigastric pain Gastroparesis History of diabetes mellitus History of diabetic gastroparesis Leukocytosis Nausea and vomiting in adult Ulcerative esophagitis Surgical History Surgical History History of amputation of toe History of ankle fusion Family History Family History Father Diabetes mellitus Mother Psoriasis Social History Social History Smoking status: Never smoker Alcohol intake: never Substance use: current Substance use type: marijuana Do You Feel Safe in your Home?: Yes Lack of Transportation: No Lack of Food: Never True Current Housing: I Have Housing Concerned About Future Housing: No Difficulty Paying Gas/Electric Bills: No Difficulty Paying for Meds: No Currently Unemployed: No Education: High School Diploma/GED Difficulty w/ Childcare or Family Care: No Spiritual care concerns: No Exam Narrative: GENERAL: Well-appearing, well-nourished, and in no acute distress. HEAD: Normocephalic, atraumatic. EYES: PERRLA and EOMI. ENT: Nares clear. Mucous membranes moist. NECK: Supple. CHEST: Clear to auscultation. No respiratory distress. HEART: Regular rate and rhythm. Normal peripheral pulses. ABDOMEN: Soft, mild, diffuse tenderness without rebound or guarding. Nondistended. EXTREMITIES: Normal range of motion. No edema. SKIN: Warm, dry, no rash. Chronic appearing wound on his left heel, no active draining or surrounding erythema. NEURO: No focal deficits. Alert and oriented x3. PSYCH: Normal mood and affect. Course Course Emergency Course: Chart review performed. Patient here with multiple symptoms including sweating and abdominal pain. Triage vitals show HTN, tachypneic, oterhwise grossly normal. He appears to have recently been admitted from 11/03/23 to 11/06/23. He was admitted with osteomyelitis and there was discussion about amputation on 11/09/23 however he had to go home to take care of his . They note history of gastroparesis. He was on antibiotics while here in the hospital for osteomyelitis, appears to have developed C.diff at some point, started on fidaxomicin. He appears to have been discharged on bentyl, dificid and magnesium. Patient seen evaluated, nontoxic appearing. He has had some symptomatic improvem
[2023-11-08] MEDS: PANTOPRAZOLE SODIUM IV 40 MG VIAL IV PUSH (19:58)
[2023-11-08] MEDS: MORPHINE SULFATE (*CRX) 4 MG/ML INJ IV PUSH (19:58)
[2023-11-08] MEDS: ONDANSETRON INJ 4 MG/2 ML VIAL IV PUSH (19:58)
[2023-11-08 19:59] LABS: Basophils Percent Auto 0.2 % (0.2-1.2); Eosinophils Absolute Auto 0.2 K/mm3 (0-0.3); Hemoglobin 14.6 g/dL (14.0-18.0); Immature Granulocyte Absolute 0.03 K/mm3 (0.00-0.031); Immature Granulocyte Percent A 0.2 % (0-0.5); Lymphocytes Absolute Auto 2.19 K/mm3 (0.9-3.2); Lymphocytes Percent Auto 17.9 % (18.3-44.2); Mean Corpuscular HGB Conc 35.6 g/dl (32-36); Mean Corpuscular Hemoglobin 28.9 pg (26-34); Mean Platelet Volume 8.9 fl (7.4-10.4); Monocytes Absolute Auto 0.8 K/mm3 (0.1-0.6); Monocytes Percent Auto 6.5 % (2.6-8.5); Neutrophils Percent Auto 73.2 % (45.5-73.1); Platelet Count Result 228 k/mm3 (150-375); Red Blood Count 5.06 M/mm3 (4.6-6.20); Red Cell Distribution Width 13.1 % (11.5-14.5); White Blood Count 12.2 K/mm3 (4.5-10.0)
[2023-11-08 20:09] LABS: Alanine Aminotransferase 18 U/L (6-50); Albumin Level 4.6 g/dL (3.5-5.1); Alkaline Phosphatase 81 U/L (38-126); Anion Gap 11 mmol/L (4-12); Aspartate Amino Transferase 21 U/L (17-59); Bilirubin,Total 0.7 mg/dL (0.2-1.3); Blood Urea Nitrogen 15 mg/dL (9-20); Calcium 10.3 mg/dL (8.4-10.2); Carbon Dioxide 26 mmol/L (22-30); Chloride 106 mmol/L (98-107); Estimated CRCL calculation 114 ml/min; Estimated Glomerular Filt Rate > 60; Glucose 164 mg/dL (65-110); Lipase 98 U/L (23-300); Potassium 3.7 mmol/L (3.4-5.0); Sodium 143 mmol/L (137-145)
[2023-11-08 20:12] LABS: Partial Thromboplastin Time 27.4 Seconds (22.3-36.8); Prothrombin Time 13.4 Seconds (11.1-14.7)
[2023-11-08 20:20] LABS: Troponin I < 0.012 ng/mL (0.000-0.034)
[2023-11-08 21:21] LABS: Appearance Urine Clear (Clear); Bilirubin Urine Negative (Negative); Blood Urine Negative (Negative); Color Urine Yellow (Yellow); Glucose Urine UA 1+ mg/dL (Negative); Ketones Urine Negative (Negative); Leukocyte Esterase Ur Negative LEU/UL (Negative); Nitrate Urine Negative (Negative); Protein Urine Negative (Negative); Specific Grav Ur 1.012 (1.001-1.035); Urobilinogen Urine 0.2 mg/dL (<2.0); pH Urine 7.5 (5.0-9.0)
[2023-11-08 21:33] LABS: Add Urine Microscopic? NO
[2023-11-08] MEDS: diphenhydrAMINE HCl INJ 50 MG/ML VIAL 25 MG IV PUSH (21:41)
[2023-11-08] MEDS: METOCLOPRAMIDE HCL INJ 10 MG/2 ML VIAL IV PUSH (21:41)
[2023-11-08] MEDS: DICYCLOMINE HCL INJ 20 MG/2 ML VIAL IM (21:42)
[2023-11-08 22:22] LABS: Lactic Acid Reflex 1.2 mmol/L (0.7-2.0)
[2023-11-08 22:37] VITALS: BP 192/87; PULSE 92; RESP 13; O2SAT 96
--- NOTE | 2023-11-08 22:41 | ECG_ITS ---
Test Date: 2023-11-08 22:41:01 Measurements Intervals [place] Rate: 91 P: 68 HI: 174 QRS: 62 QRSD: 97 T: 72 QT: 389 QTc: 479 Interpretive Statements SINUS RHYTHM POSSIBLE LEFT ATRIAL ENLARGEMENT CANNOT R/O SEPTAL INFARCT, AGE INDETERMINATE BORDERLINE ST-T WAVE ABNORMALITY- INF/LAT LEADS ABNORMAL ECG Compared to ECG 11/08/2023 20:00:50 Ectopic atrial rhythm no longer present Electronically Signed On 11-09-2023 15:08:52 CDT by Nadeem Wheeler D.O.
[2023-11-08 23:00] LABS: Troponin I < 0.012 ng/mL (0.000-0.034)
[2023-11-09] VITALS (8 sets, daily range): BP systolic 133–176; BP diastolic 75–96; PULSE 75–114; RESP 13–16; TEMP 36.3–36.9; O2SAT 95–100; BMI 28.3
[2023-11-09 03:56] LABS: Basophils Percent Auto 0.2 % (0.2-1.2); Eosinophils Percent Auto 0.1 % (0-4.4); Hematocrit 40.5 % (42.0-52.0); Hemoglobin 14.2 g/dL (14.0-18.0); Immature Granulocyte Absolute 0.08 K/mm3 (0.00-0.031); Immature Granulocyte Percent A 0.6 % (0-0.5); Lymphocytes Absolute Auto 1.35 K/mm3 (0.9-3.2); Lymphocytes Percent Auto 9.3 % (18.3-44.2); Mean Corpuscular HGB Conc 35.1 g/dl (32-36); Mean Corpuscular Hemoglobin 28.6 pg (26-34); Mean Corpuscular Volume 81.5 fl (80-100); Mean Platelet Volume 9.4 fl (7.4-10.4); Monocytes Absolute Auto 0.5 K/mm3 (0.1-0.6); Monocytes Percent Auto 3.7 % (2.6-8.5); Neutrophils Absolute Auto 12.5 K/mm3 (1.3-6.7); Neutrophils Percent Auto 86.1 % (45.5-73.1); Platelet Count Result 221 k/mm3 (150-375); Red Blood Count 4.97 M/mm3 (4.6-6.20); White Blood Count 14.5 K/mm3 (4.5-10.0)
[2023-11-09 04:04] LABS: Alanine Aminotransferase 20 U/L (6-50); Albumin Level 4.5 g/dL (3.5-5.1); Alkaline Phosphatase 90 U/L (38-126); Anion Gap 15 mmol/L (4-12); Aspartate Amino Transferase 24 U/L (17-59); Bilirubin,Total 0.6 mg/dL (0.2-1.3); Blood Urea Nitrogen 12 mg/dL (9-20); Calcium 9.9 mg/dL (8.4-10.2); Carbon Dioxide 20 mmol/L (22-30); Chloride 103 mmol/L (98-107); Estimated CRCL calculation 131 ml/min; Estimated Glomerular Filt Rate > 60; Glucose 257 mg/dL (65-110); Magnesium 1.5 mg/dL (1.6-2.3); Potassium 3.7 mmol/L (3.4-5.0); Sodium 138 mmol/L (137-145)
[2023-11-09 07:37] LABS: Glucose Point of Care 226 mg/dl (65-105)
[2023-11-09] MEDS: INSULIN ASPART (*BKC) 100 UNITS/ML SUB-Q (09:23)
[2023-11-09] MEDS: MAGNESIUM SULF 2 GM/WATER 50ML 2 GM/50 ML BAG IVPB (09:24)
[2023-11-09] MEDS: PANTOPRAZOLE SODIUM IV 40 MG VIAL IV PUSH ×2 (09:27→21:36)
[2023-11-09] MEDS: FIDAXOMICIN 200 MG TABLET PO ×2 (09:27→21:12)
[2023-11-09] MEDS: levoFLOXacin 750 MG TABLET PO (09:27)
[2023-11-09] MEDS: MAGNESIUM OXIDE 400 MG TABLET PO (09:28)
[2023-11-09] MEDS: SERTRALINE HCL 50 MG TABLET 100 MG PO ×2 (09:28→17:05)
[2023-11-09] MEDS: MORPHINE SULFATE (*CRX) 4 MG/ML INJ IV PUSH ×3 (11:00→21:37)
--- NOTE | 2023-11-09 11:05 | PM.PNGS ---
Progress Note: A&P Assessment and Plan (1) Acute osteomyelitis of left foot: Code(s): M86.172 - Other acute osteomyelitis, left ankle and foot Status: Acute Assessment and Plan: Patient continues to not heal and has x-ray findings consistent with osteomyelitis. He is also had a prior bone scan from confirmed findings consistent with osteomyelitis. He has attempted limb salvaging treatments but has not had any long-term success with wound closure. I discussed options of continuing medical treatment or proceeding with amputation. Patient would like to proceed with amputation. They have recommended left below-knee amputation. I discussed the procedure, risks, benefits, and alternatives. Questions were answered. (2) C. difficile colitis: Code(s): A04.72 - Enterocolitis due to Clostridium difficile, not specified as recurrent Status: Acute (3) Diabetes mellitus with gastroparesis: Code(s): E11.43 - Type 2 diabetes mellitus with diabetic autonomic (poly)neuropathy Status: Acute (4) Insulin dependent diabetes mellitus: Status: Acute (5) Chronic foot ulcer: Qualifiers: Laterality: left Non-pressure ulcer stage: with necrosis of bone Qualified Code(s): L97.524 - Non-pressure chronic ulcer of other part of left foot with necrosis of bone Code(s): L97.509 - Non-pressure chronic ulcer of other part of unspecified foot with unspecified severity Status: Acute Subjective Subjective Date/Time Seen: 11/09/23 11:05 Interval history: Patient was just seen and examined 3 days ago during last admission. Please refer to consultation note for full details of history and encounter. He was hospitalized last week for osteomyelitis of the left heel and abdominal pain with nausea and vomiting. He was found to have C diff colitis secondary to antibiotics for the osteomyelitis. Patient was following a electronics repair technician and had a cast in place but patient is tired of dealing with the chronic wound and recurring infections. He has been dealing with this for over 4 years. He now wants to proceed with below-knee amputation to avoid any future complications with the left heel osteomyelitis. He was sent home on Thursday as he did seem to be improving from the C diff colitis. He then returned to the emergency department last night with recurrent abdominal pain with nausea and vomiting. He does have gastroparesis and has already previously had his gallbladder removed. CT of the abdomen and pelvis during the last admission showed no acute intra-abdominal abnormalities. Patient's nausea has improved since last night. He is only having some mild lower abdominal pain that he relates to vomiting and dry heaving causing this. He denies any significant changes with the left foot. Exam Extrem: Other: Chronic plantar left heel ulcer with open wound tunneling to calcaneus. No significant surrounding erythema or purulent drainage. Objective Data Vital Signs Vital Signs: Vital Signs - 24 hr 11/08/23 19:27 11/08/23 22:37 11/09/23 00:32 Temperature 36.4 C Pulse Rate 93 92 98 Respiratory Rate 24 H 13 15 Blood Pressure 210/106 H 192/87 H 176/90 H Pulse Oximetry 100 96 100 Oxygen Delivery Room Air 11/09/23 00:48 11/09/23 01:21 11/09/23 03:56 Temperature 36.5 C Pulse Rate 97 98 Respiratory Rate 15 16 Blood Pressure 150/76 H 167/81 H Pulse Oximetry 99 98 98 Oxygen Delivery Room Air 11/09/23 05:32 Temperature 36.3 C L Pulse Rate 114 H Respiratory Rate 13 Blood Pressure 133/75 Pulse Oximetry 98 Oxygen Delivery Intake/Output Intake/Output: Intake & Output 11/06/23 11/07/23 11/08/23 11/09/23 23:59 23:59 23:59 23:59 Intake Total 50 Output Total 400 Balance -350 Meds/Results Medications: Active Medications Generic Name Dose Route Start Last Admin Trade Name Freq PRN Reason Stop Dose Admin Dextrose 12.5 gm 11/09/23 02:23 Dextrose 5
[2023-11-09 11:40] LABS: Glucose Point of Care 182 mg/dl (65-105)
[2023-11-09] MEDS: METOCLOPRAMIDE HCL INJ 10 MG/2 ML VIAL IV PUSH ×2 (15:32→21:37)
--- NOTE | 2023-11-09 16:11 | PM.IMHP ---
H&P: HPI History of Present Illness Date/Time: 11/09/23 16:11 Chief Complaint: osteomyelitis of left, C diff Narrative: patient is 58 y/o male with history of DM, found to left lower extremity OM was seen by general surgery on 11/06/2023 and recommended amputation of left lower leg however patient was not able to stay in the hospital for the surgery as patient was ill at home with dementia and patient was discharged on his insistences, patient also has C. Diff and being treated. Patient to ER on 11/07 and now patient is admitted. patient will be seen by his surgeon and further recommendation to follow. patient is admitted an inpatient. Review of Systems Review of Systems: All systems reviewed & are unremarkable except as noted in HPI and below PMFSH Past Medical History Medical History Epigastric pain Gastroparesis History of diabetes mellitus History of diabetic gastroparesis Leukocytosis Nausea and vomiting in adult Ulcerative esophagitis Surgical History Surgical History History of amputation of toe History of ankle fusion Family History Family History Father Diabetes mellitus Mother Psoriasis Social History Social History Smoking status: Never smoker Alcohol intake: never Substance use: current Substance use type: marijuana Do You Feel Safe in your Home?: Yes Lack of Transportation: No Lack of Food: Never True Current Housing: I Have Housing Concerned About Future Housing: No Difficulty Paying Gas/Electric Bills: No Difficulty Paying for Meds: No Currently Unemployed: No Education: High School Diploma/GED Difficulty w/ Childcare or Family Care: No Spiritual care concerns: No Meds Home Medications and Allergies Home Medications Medication Instructions Recorded Confirmed Type sertraline 100 mg tablet 100 mg PO BID 10/02/23 11/09/23 History insulin glargine U-300 conc 300 30 unit (0.1 mL) subcut BID #4.5 mL 10/06/23 11/09/23 Rx unit/mL (1.5 mL) subcutaneous pen (Rogelio BarahonaoStar U-300 Insulin) insulin lispro 100 unit/mL 1 sliding scale dose subcut .TID 10/06/23 11/09/23 Rx subcutaneous solution (Humalog with meals #10 mL U-100 Insulin) aspirin 81 mg tablet 81 mg PO DAILY 11/03/23 11/09/23 History dicyclomine 10 mg capsule 20 mg PO QID PRN Abdominal 11/06/23 11/09/23 Rx Cramping #60 caps fidaxomicin 200 mg tablet (Dificid) 200 mg PO Q12HR #14 tabs 11/06/23 11/09/23 Rx levofloxacin 750 mg tablet 750 mg PO DAILY 14 days #14 tabs 11/06/23 11/09/23 Rx magnesium oxide 400 mg (241.3 mg 400 mg PO QAM #30 tabs 11/06/23 11/09/23 Rx magnesium) tablet melatonin 3 mg tablet 3 mg PO HS #30 tabs 11/06/23 11/09/23 Rx Allergies Allergy/AdvReac Type Severity Reaction Status Date / Time iodine Allergy Rash Verified 10/23/23 14:04 Vital Signs Vital Signs - 24 hr 11/08/23 19:27 11/08/23 22:37 11/09/23 00:32 Temperature 36.4 C Pulse Rate 93 92 98 Respiratory Rate 24 H 13 15 Blood Pressure 210/106 H 192/87 H 176/90 H Pulse Oximetry 100 96 100 Oxygen Delivery Room Air 11/09/23 00:48 11/09/23 01:21 11/09/23 03:56 Temperature 36.5 C Pulse Rate 97 98 Respiratory Rate 15 16 Blood Pressure 150/76 H 167/81 H Pulse Oximetry 99 98 98 Oxygen Delivery Room Air 11/09/23 05:32 11/09/23 14:00 Temperature 36.3 C L 36.9 C Pulse Rate 114 H 80 Respiratory Rate 13 16 Blood Pressure 133/75 140/96 H Pulse Oximetry 98 95 Oxygen Delivery Exam Narrative: General: patient is comfortable. HEENT: eyes are non icteric, and clear HEART: R R, S1 S2 Lungs: CTA ABD: obese Lower ext: no edema SKIN: no obvious rash Neuro: grossly intact H&P: Results Labs Labs: Short CBC 11/08/23 11/09/23 Range/Uni
[2023-11-09 16:49] LABS: Glucose Point of Care 189 mg/dl (65-105)
[2023-11-09 20:45] LABS: Glucose Point of Care 209 mg/dl (65-105)
[2023-11-09] MEDS: MELATONIN 3 MG TABLET PO (21:13)
[2023-11-09] MEDS: INSULIN GLARGINE (*BKC) 100 UNITS/ML 30 UNITS SUB-Q (21:47)
[2023-11-10] VITALS (15 sets, daily range): BP systolic 127–166; BP diastolic 77–96; PULSE 71–94; RESP 14–20; TEMP 36.3–36.7; O2SAT 97–100
[2023-11-10 06:17] LABS: Basophils Percent Auto 0.2 % (0.2-1.2); Eosinophils Absolute Auto 0.3 K/mm3 (0-0.3); Eosinophils Percent Auto 3.2 % (0-4.4); Hemoglobin 13.4 g/dL (14.0-18.0); Immature Granulocyte Absolute 0.04 K/mm3 (0.00-0.031); Immature Granulocyte Percent A 0.5 % (0-0.5); Lymphocytes Absolute Auto 2.08 K/mm3 (0.9-3.2); Lymphocytes Percent Auto 25.8 % (18.3-44.2); Mean Corpuscular HGB Conc 34.4 g/dl (32-36); Mean Corpuscular Hemoglobin 28.8 pg (26-34); Mean Corpuscular Volume 83.9 fl (80-100); Mean Platelet Volume 9.4 fl (7.4-10.4); Monocytes Absolute Auto 0.7 K/mm3 (0.1-0.6); Monocytes Percent Auto 8.7 % (2.6-8.5); Neutrophils Percent Auto 61.6 % (45.5-73.1); Platelet Count Result 197 k/mm3 (150-375); Red Blood Count 4.65 M/mm3 (4.6-6.20); Red Cell Distribution Width 13.3 % (11.5-14.5); White Blood Count 8.1 K/mm3 (4.5-10.0)
[2023-11-10] MEDS: MORPHINE SULFATE (*CRX) 4 MG/ML INJ IV PUSH (06:18)
[2023-11-10] MEDS: METOCLOPRAMIDE HCL INJ 10 MG/2 ML VIAL IV PUSH ×2 (06:19→12:38)
[2023-11-10 06:30] LABS: Alanine Aminotransferase 16 U/L (6-50); Albumin Level 3.9 g/dL (3.5-5.1); Alkaline Phosphatase 73 U/L (38-126); Anion Gap 6 mmol/L (4-12); Aspartate Amino Transferase 20 U/L (17-59); Bilirubin,Total 0.6 mg/dL (0.2-1.3); Blood Urea Nitrogen 12 mg/dL (9-20); Calcium 9.1 mg/dL (8.4-10.2); Carbon Dioxide 27 mmol/L (22-30); Chloride 106 mmol/L (98-107); Estimated CRCL calculation 131 ml/min; Estimated Glomerular Filt Rate > 60; Glucose 177 mg/dL (65-110); Magnesium 1.9 mg/dL (1.6-2.3); Potassium 3.5 mmol/L (3.4-5.0); Sodium 139 mmol/L (137-145)
[2023-11-10 07:34] LABS: Glucose Point of Care 175 mg/dl (65-105)
[2023-11-10] MEDS: levoFLOXacin 750 MG TABLET PO (08:58)
[2023-11-10] MEDS: ALPRAZolam (*CRX) 0.25 MG TABLET PO (08:58)
[2023-11-10] MEDS: SERTRALINE HCL 50 MG TABLET 100 MG PO ×2 (08:58→17:29)
[2023-11-10] MEDS: FIDAXOMICIN 200 MG TABLET PO ×2 (08:58→20:24)
[2023-11-10] MEDS: PANTOPRAZOLE SODIUM IV 40 MG VIAL IV PUSH ×2 (09:00→20:23)
--- NOTE | 2023-11-10 10:16 | WPDPN ---
Progress Note: A&P Assessment and Plan (1) Acute osteomyelitis of left foot: Code(s): M86.172 - Other acute osteomyelitis, left ankle and foot Status: Acute Assessment and Plan: patient with acute on chronic OM of left lower leg, patient was seen by surgery service and patient decided to have his left lower leg amputated to prevent further spread of the infection. patient will be seen by the surgeon and further recommendation to follow. (2) C. difficile colitis: Code(s): A04.72 - Enterocolitis due to Clostridium difficile, not specified as recurrent Status: Acute Assessment and Plan: patient stool are still loose, will continue dificid will monitor and plan. (3) Diabetes mellitus with gastroparesis: Code(s): E11.43 - Type 2 diabetes mellitus with diabetic autonomic (poly)neuropathy Status: Acute Assessment and Plan: will continue home regiment and monitor with sliding scale (4) Hypertension: Code(s): I10 - Essential (primary) hypertension Status: Acute Assessment and Plan: will continue home regiment Plan patient with acute on chronic OM of left lower leg, patient was seen by surgery service and patient decided to have his left lower leg amputated to prevent further spread of the infection. patient will be seen by the surgeon and further recommendation to follow. interval history 11/10/2023: patient is schedule to left lower leg BKA today, and further recommendation to follow, patient with C diff stool are beginning to form and his white counts are improving will continue to monitor. Subjective Date/time seen: 11/10/23 10:16 Interval history: patient with acute on chronic OM of left lower leg, patient was seen by surgery service and patient decided to have his left lower leg amputated to prevent further spread of the infection. patient will be seen by the surgeon and further recommendation to follow. interval history 11/10/2023: patient is schedule to left lower leg BKA today, and further recommendation to follow, patient with C diff stool are beginning to form and his white counts are improving will continue to monitor. Review of Systems Review of Systems: All systems reviewed & are unremarkable except as noted in HPI and below Exam Narrative: General: patient is comfortable. HEENT: eyes are non icteric, and clear HEART: R R, S1 S2 Lungs: CTA ABD: obese Lower ext: no edema SKIN: no obvious rash Neuro: grossly intact Objective Data Vital Signs Vital Signs: Vital Signs - 24 hr 11/09/23 14:00 11/09/23 20:49 11/09/23 20:00 Temperature 36.9 C 36.9 C Pulse Rate 80 75 Respiratory Rate 16 16 Blood Pressure 140/96 H 160/91 H Pulse Oximetry 95 97 97 Oxygen Delivery Room Air 11/10/23 06:00 Temperature 36.6 C Pulse Rate 71 Respiratory Rate 16 Blood Pressure 154/83 H Pulse Oximetry 98 Oxygen Delivery Intake/Output Intake/Output: Intake & Output 11/07/23 11/08/23 11/09/23 11/10/23 23:59 23:59 23:59 23:59 Intake Total 422 Output Total 1150 Balance -728 Meds/Results Medications: Active Medications Generic Name Dose Route Start Last Admin Trade Name Freq PRN Reason Stop Dose Admin Dextrose 12.5 gm 11/09/23 02:23 Dextrose 50% 25 Gm/50 Ml Syringe IV PUSH PRN PRN Hypoglycemia Protocol Dicyclomine HCl 20 mg 11/09/23 02:22 Dicyclomine Hcl 10 Mg Capsule PO QID PRN Abdominal Cramping Enoxaparin Sodium 40 mg 11/10/23 09:00 Enoxaparin 40 Mg/0.4 Ml Syringe SUB-Q DAILY OTILIO Fidaxomicin 200 mg 11/09/23 09:00 11/10/23 08:58 Fidaxomicin 200 Mg Tablet PO 11/13/23 21:01 200 mg Q12HR OTILIO Administration Glucagon 1 mg 11/09/23 02:23 Glucagon For Inj 1 Mg Vial IM PRN PRN Hypoglycemia Protocol Glucose 15 gm 11/09/23 02:23 Glucose Oral Gel 15 Gm Of Glucse In 37.5 Gm Tube PO PRN PRN Hypoglycemia Pro
[2023-11-10 11:35] LABS: Glucose Point of Care 198 mg/dl (65-105)
[2023-11-10 13:12] LABS: Glucose Point of Care 200 mg/dl (65-105)
--- NOTE | 2023-11-10 13:32 | WPDHPUPDATE1 ---
History and Physical Update Update Date/Time: 11/10/23 13:32 History and Physical has been reviewed, including an updated exam of the patient. There are NO changes in the patient's condition. Risks, benefits, and alternatives have been discussed and questions answered. Patient agrees to proceed with procedure.
--- NOTE | 2023-11-10 13:34 | WPDANESEPPF ---
Anes - Initial Pre Proc Eval Procedure: Operation Date: 11/10/23 14:00 Proposed Procedures p Left Below Knee Amputation - Jac Cadena DO Date/Time: 11/10/23 13:34 Surgeon: Surinder Pre Op Diagnosis: Intractible nausea and vomiting, gastroparesis, bernabe Patient Data Age: 58 Gender: M Height: 1.88 m Weight: 99.9 kg Last Vital Signs Temp 36.3 C L 11/10/23 13:28 Pulse 83 11/10/23 13:28 Resp 16 11/10/23 13:28 BP 145/95 H 11/10/23 13:28 Pulse Ox 99 11/10/23 13:28 O2 Del Method Room Air 11/09/23 20:00 Allergies Allergy/AdvReac Type Severity Reaction Status Date / Time iodine Allergy Rash Verified 10/23/23 14:04 Home Medications Medication Instructions Recorded Confirmed Type sertraline 100 mg tablet 100 mg PO BID 10/02/23 11/09/23 History insulin glargine U-300 conc 300 30 unit (0.1 mL) subcut BID #4.5 mL 10/06/23 11/09/23 Rx unit/mL (1.5 mL) subcutaneous pen (Toujeo SoloStar U-300 Insulin) insulin lispro 100 unit/mL 1 sliding scale dose subcut .TID 10/06/23 11/09/23 Rx subcutaneous solution (Humalog with meals #10 mL U-100 Insulin) aspirin 81 mg tablet 81 mg PO DAILY 11/03/23 11/09/23 History dicyclomine 10 mg capsule 20 mg PO QID PRN Abdominal 11/06/23 11/09/23 Rx Cramping #60 caps fidaxomicin 200 mg tablet (Dificid) 200 mg PO Q12HR #14 tabs 11/06/23 11/09/23 Rx levofloxacin 750 mg tablet 750 mg PO DAILY 14 days #14 tabs 11/06/23 11/09/23 Rx magnesium oxide 400 mg (241.3 mg 400 mg PO QAM #30 tabs 11/06/23 11/09/23 Rx magnesium) tablet melatonin 3 mg tablet 3 mg PO HS #30 tabs 11/06/23 11/09/23 Rx Laboratory Tests 11/09/23 11/09/23 11/10/23 16:34 20:29 05:22 WBC 8.1 K/mm3 (4.5-10.0) RBC 4.65 M/mm3 (4.6-6.20) Hgb 13.4 L g/dL (14.0-18.0) Hct 39.0 L % (42.0-52.0) MCV 83.9 fl (80-100) MCH 28.8 pg (26-34) MCHC 34.4 g/dl (32-36) RDW 13.3 % (11.5-14.5) Plt Count 197 k/mm3 (150-375) MPV 9.4 fl (7.4-10.4) Immature Gran % (Auto) 0.5 % (0-0.5) Neut % (Auto) 61.6 % (45.5-73.1) Lymph % (Auto) 25.8 % (18.3-44.2) [place] % (Auto) 8.7 H % (2.6-8.5) Eos % (Auto) 3.2 % (0-4.4) Baso % (Auto) 0.2 % (0.2-1.2) Lymph # (Auto) 2.08 K/mm3 (0.9-3.2) [place] # (Auto) 0.7 H K/mm3 (0.1-0.6) Eos # (Auto) 0.3 K/mm3 (0-0.3) Baso # (Auto) 0.0 K/mm3 (0.0-0.1) Abs Immat Gran (auto) 0.04 H K/mm3 (0.00-0.031) Absolute Neuts (auto) 5.0 K/mm3 (1.3-6.7) Absolute Nucleated RBC 0.000 K/mm3 (0.0-0.012) Nucleated RBC % 0.0 % (0.0-0.2) Sodium 139 mmol/L (137-145) Potassium 3.5 mmol/L (3.4-5.0) Chloride 106 mmol/L (98-107) Carbon Dioxide 27 mmol/L (22-30) Anion Gap 6 mmol/L (4-12) BUN 12 mg/dL (9-20) Creatinine 0.60 L mg/dL (0.7-1.3) Estim Creat Clear Calc 131 ml/min Estimated GFR > 60 (59 - ) Glucose 177 H mg/dL (65-110) POC Capillary Glucose 189 H mg/dl 209 H mg/dl (65-105) (65-105) Calcium 9.1 mg/dL (8.4-10.2) Magnesium 1.9 mg/dL (1.6-2.3) Total Bilirubin 0.6 mg/dL (0.2-1.3) AST 20 U/L (17-59) ALT 16 U/L (6-50) Alkaline Phosphatase 73 U/L (38-126) Total Protein 7.0 g/dL (6.3-8.2) Albumin 3.9 g/dL (3.5-5.1) 11/10/23 11/10/23 11/10/23 07:30 11:32 13:06 WBC RBC Hgb Hct MCV MCH MCHC RDW Plt Count MPV Immature Gran % (Auto) Neut % (Auto) Lymph % (Auto) [place] % (Auto) Eos % (Auto) Baso % (Auto)
[2023-11-10] MEDS: LACTATED RINGERS 1,000 ML 30 ML IV CONT (15:15)
--- NOTE | 2023-11-10 15:21 | W.PM.PROC2 ---
Procedure Note - Detailed Date of Procedure 11/10/23 Pre-op Diagnosis Left heel osteomyelitis Post-op Diagnosis Same Procedure Performed Left below-knee amputation Surgeon Jac Cadena, DO Anesthesia General Indications This is a 58-year-old man who presented with chronic osteomyelitis to his left heel. He has a history of a heel wound that he has been treating for about the last 4 years. He has been found to have osteomyelitis in the past and was treated with IV antibiotics. The wound would partially heal but then it opened back up again. Recent imaging on x-ray and bone scan has shown evidence of osteomyelitis of the calcaneus. Discussions were made with the patient about continued wound care versus amputation. Patient is now agreeable to proceeding with amputation to avoid more long-term consequences with non-healing. Decision was made to proceed with left below-knee amputation. Findings Left below-knee amputation was performed. The patient had adequate blood supply to the left leg below the knee. No other abnormalities were noted. The left leg below-knee amputation was performed and the leg was sent to the lab for pathology. Description of Procedure Procedure as well as risks, benefits, and alternatives were discussed with the patient. Written consent was obtained and placed in chart prior to procedure. Patient was brought back to surgical suite. He was placed supine on operating table. Time-out was done to confirm patient and procedure. He was then intubated by the anesthesia department. His left leg was prepped and draped in sterile fashion using chlorhexidine prep. A tourniquet was used to help minimize blood loss during the procedure. Tourniquet time was 25 minutes. The location for amputation and skin incisions were carefully marked out on the below knee leg. An incision was made to include a larger posterior flap using a 10 blade scalpel. The incision was carried down through the subcutaneous tissue to the fascia. The fascia of the anterior muscle compartment was incised 1st and then this was carried out around to the lateral compartment and around the tibia. The periosteum was incised with the 10 blade scalpel and then a bone elevator was used to gently dissect back far enough on the tibia to where we could perform the amputation. A Second & Fourth saw was then used to transect the tibia. I then continued the dissection down through the muscle and onto the fibula. The fibula periosteum was also cleared all the way back to where I could transect the fibula about 1 cm proximal to where the tibia was transected. The Morven saw again was used to transect the fibula at this point. The posterior compartment muscles were then dissected using the 10 blade scalpel until the tissue was completely dissected and leg was freed up and removed. The left lower leg was then sent to the lab for pathology. Curved hemostats were then placed on all the visible vessels and then the vessels were ligated using 3-0 Vicryl [id number] sutures. After ligating all the vessels, the tourniquet was released. There were a few other small branch vessels that were then ligated with 3-0 Vicryl [id number] sutures and electrocautery. Hemostasis then appeared adequate. I then used a Morven saw 1 more time to bevel the anterior edge the tibia. I then irrigated the stump using sterile saline. No other significant abnormalities were noted and hemostasis appeared adequate. The fascia was then brought together over the tibia and fibula using 0 Vicryl simple interrupted sutures. This appeared to approximate the fascia very well and bring the posterior flap up over the stump. Skin edges were then reapproximated using a skin stapler. Xeroform gauze was then applied followed by fluff gauze, ABD pads, Kerlix wrap, and large Clyde wrap. The patient's leg was then also placed in a knee immobilizer. The patient was then awakened from anesthesia, extubated, and transfer
[2023-11-10] MEDS: fentaNYL CITRATE INJ (*CRX) 100 MCG/2 ML VIAL 25 MCG IV PUSH ×8 (15:29→15:45)
[2023-11-10 15:46] LABS: Glucose Point of Care 167 mg/dl (65-105)
[2023-11-10] MEDS: HYDROmorphone HCL INJ (*CRX) 1 MG/ML SYR 0.5 MG IV PUSH ×6 (16:27→16:52)
[2023-11-10] MEDS: oxyCODONE/ACETAMINOPHEN (*CRX) 10-325 MG TABLET 1 TAB PO (17:28)
[2023-11-10] MEDS: ONDANSETRON INJ 4 MG/2 ML VIAL IV PUSH (17:28)
[2023-11-10] MEDS: LACTATED RINGERS 1,000 ML 100 ML IV CONT (17:29)
[2023-11-10] MEDS: HYDROmorphone HCL INJ (*CRX) 1 MG/ML SYR IV PUSH ×3 (18:50→22:15)
[2023-11-10] MEDS: MELATONIN 3 MG TABLET PO (20:23)
[2023-11-10] MEDS: INSULIN GLARGINE (*BKC) 100 UNITS/ML 30 UNITS SUB-Q (20:24)
[2023-11-10] MEDS: oxyCODONE/ACETAMINOPHEN (*CRX) 5-325 MG TABLET 1 TABLET PO (20:24)
[2023-11-10 20:36] LABS: Glucose Point of Care 176 mg/dl (65-105)
[2023-11-10] MEDS: IBUPROFEN IV 800 MG/200 ML 800 MG/200 ML BAG 400 MG IVPB (22:21)
[2023-11-11] VITALS (7 sets, daily range): BP systolic 120–142; BP diastolic 76–84; PULSE 77–90; RESP 16–20; TEMP 36.4–37.3; O2SAT 97–99
[2023-11-11] MEDS: oxyCODONE/ACETAMINOPHEN (*CRX) 10-325 MG TABLET 1 TAB PO ×3 (00:04→21:12)
[2023-11-11] MEDS: HYDROmorphone HCL INJ (*CRX) 1 MG/ML SYR IV PUSH ×7 (00:07→23:32)
[2023-11-11] MEDS: oxyCODONE/ACETAMINOPHEN (*CRX) 5-325 MG TABLET 1 TABLET PO (02:39)
[2023-11-11 07:07] LABS: Alanine Aminotransferase 16 U/L (6-50); Albumin Level 3.6 g/dL (3.5-5.1); Alkaline Phosphatase 73 U/L (38-126); Anion Gap 6 mmol/L (4-12); Aspartate Amino Transferase 24 U/L (17-59); Bilirubin,Total 0.6 mg/dL (0.2-1.3); Blood Urea Nitrogen 10 mg/dL (9-20); Calcium 8.8 mg/dL (8.4-10.2); Carbon Dioxide 29 mmol/L (22-30); Chloride 102 mmol/L (98-107); Estimated CRCL calculation 131 ml/min; Estimated Glomerular Filt Rate > 60; Glucose 147 mg/dL (65-110); Magnesium 1.7 mg/dL (1.6-2.3); Potassium 3.5 mmol/L (3.4-5.0); Sodium 137 mmol/L (137-145)
[2023-11-11 07:13] LABS: Basophils Percent Auto 0.3 % (0.2-1.2); Eosinophils Absolute Auto 0.2 K/mm3 (0-0.3); Eosinophils Percent Auto 1.7 % (0-4.4); Hematocrit 37.8 % (42.0-52.0); Hemoglobin 12.7 g/dL (14.0-18.0); Immature Granulocyte Absolute 0.03 K/mm3 (0.00-0.031); Immature Granulocyte Percent A 0.3 % (0-0.5); Lymphocytes Absolute Auto 1.88 K/mm3 (0.9-3.2); Lymphocytes Percent Auto 17.3 % (18.3-44.2); Mean Corpuscular HGB Conc 33.6 g/dl (32-36); Mean Corpuscular Hemoglobin 28.5 pg (26-34); Mean Corpuscular Volume 84.9 fl (80-100); Mean Platelet Volume 9.4 fl (7.4-10.4); Monocytes Absolute Auto 0.9 K/mm3 (0.1-0.6); Monocytes Percent Auto 8.6 % (2.6-8.5); Neutrophils Absolute Auto 7.8 K/mm3 (1.3-6.7); Neutrophils Percent Auto 71.8 % (45.5-73.1); Platelet Count Result 191 k/mm3 (150-375); Red Blood Count 4.45 M/mm3 (4.6-6.20); Red Cell Distribution Width 12.9 % (11.5-14.5); White Blood Count 10.8 K/mm3 (4.5-10.0)
[2023-11-11 08:23] LABS: Glucose Point of Care 158 mg/dl (65-105)
[2023-11-11] MEDS: FIDAXOMICIN 200 MG TABLET PO ×2 (08:59→21:12)
[2023-11-11] MEDS: SERTRALINE HCL 50 MG TABLET 100 MG PO (08:59)
[2023-11-11] MEDS: INSULIN GLARGINE (*BKC) 100 UNITS/ML 30 UNITS SUB-Q (09:00)
[2023-11-11] MEDS: ENOXAPARIN 40 MG/0.4 ML SYRINGE SUB-Q (09:00)
--- NOTE | 2023-11-11 09:01 | PCPTNOTE ---
Attempted PT evaluation, pt refused due to pain. RN aware. Will follow.
[2023-11-11] MEDS: PANTOPRAZOLE SODIUM IV 40 MG VIAL IV PUSH ×2 (09:02→21:12)
[2023-11-11 11:54] LABS: Hemoglobin A1C 8.3 % (<5.7)
[2023-11-11 12:01] LABS: Glucose Point of Care 190 mg/dl (65-105)
--- NOTE | 2023-11-11 13:15 | WPDPN ---
Progress Note: A&P Assessment and Plan (1) Acute osteomyelitis of left foot: Code(s): M86.172 - Other acute osteomyelitis, left ankle and foot Status: Acute Assessment and Plan: patient with acute on chronic OM of left lower leg, patient was seen by surgery service and patient decided to have his left lower leg amputated to prevent further spread of the infection. patient will be seen by the surgeon and further recommendation to follow. (2) C. difficile colitis: Code(s): A04.72 - Enterocolitis due to Clostridium difficile, not specified as recurrent Status: Acute Assessment and Plan: patient stool are still loose, will continue dificid will monitor and plan. (3) Diabetes mellitus with gastroparesis: Code(s): E11.43 - Type 2 diabetes mellitus with diabetic autonomic (poly)neuropathy Status: Acute Assessment and Plan: will continue home regiment and monitor with sliding scale (4) Hypertension: Code(s): I10 - Essential (primary) hypertension Status: Acute Assessment and Plan: will continue home regiment Plan patient with acute on chronic OM of left lower leg, patient was seen by surgery service and patient decided to have his left lower leg amputated to prevent further spread of the infection. patient will be seen by the surgeon and further recommendation to follow. interval history 11/11/2023: on 11/09 patient had left lower leg BKA, patient continue to complaints of pain in the left lower leg surgical site, patient is treated with hydromorphone, and oxycodone, will add lidoderm patches to help control pain, patient is patient under stress and has history of depression taking sertraline, and further recommendation to follow, patient with C diff stool are beginning to form and his white counts are improving will continue to monitor. Subjective Date/time seen: 11/11/23 13:15 Interval history: patient with acute on chronic OM of left lower leg, patient was seen by surgery service and patient decided to have his left lower leg amputated to prevent further spread of the infection. patient will be seen by the surgeon and further recommendation to follow. interval history 11/11/2023: on 11/09 patient had left lower leg BKA, patient continue to complaints of pain in the left lower leg surgical site, patient is treated with hydromorphone, and oxycodone, will add lidoderm patches to help control pain, patient is patient under stress and has history of depression taking sertraline, and further recommendation to follow, patient with C diff stool are beginning to form and his white counts are improving will continue to monitor. Review of Systems Review of Systems: All systems reviewed & are unremarkable except as noted in HPI and below Exam Narrative: General: patient is comfortable. HEENT: eyes are non icteric, and clear HEART: R R, S1 S2 Lungs: CTA ABD: obese Lower ext: no edema SKIN: no obvious rash Neuro: grossly intact Objective Data Vital Signs Vital Signs: Vital Signs - 24 hr 11/10/23 13:28 11/10/23 15:15 11/10/23 15:30 Temperature 36.3 C L 36.6 C Pulse Rate 83 81 85 Respiratory Rate 16 20 16 Blood Pressure 145/95 H 127/77 159/86 H Pulse Oximetry 99 98 100 Oxygen Delivery Simple Face Mask Nasal Cannula Oxygen Flow Rate 10 4 Fraction of Inspired Oxygen 11/10/23 15:45 11/10/23 16:00 11/10/23 16:15 Temperature Pulse Rate 88 90 91 Respiratory Rate 14 14 14 Blood Pressure 140/80 142/79 H 154/85 H Pulse Oximetry 100 98 99 Oxygen Delivery Nasal Cannula Nasal Cannula Nasal Cannula Oxygen Flow Rate 2 2 2 Fraction of Inspired Oxygen 11/10/23 16:30 11/10/23 16:45 11/10/23 16:55 Temperature Pulse Rate 90 88 94 Respiratory Rate 14 14 14 Blood Pressure 134/79 151/83 H 140/78 Pulse Oximetry 98 98 98 Oxygen Delivery Nasal Cannula Nasal Cannula Nasal Cannula Oxygen Flow Rate 2 2 2 Fraction of Inspired Oxyg
--- NOTE | 2023-11-11 13:59 | PM.PNGS ---
Progress Note: A&P Assessment and Plan (1) Acute osteomyelitis of left foot: Code(s): M86.172 - Other acute osteomyelitis, left ankle and foot Status: Acute Assessment and Plan: Postop day 1 following left BKA. He is having issues with pain control. Will adjust PRN analgesics and add gabapentin. We will plan to change the surgical dressing in the next few days PT/OT ordered, get up to chair today (2) C. difficile colitis: Code(s): A04.72 - Enterocolitis due to Clostridium difficile, not specified as recurrent Status: Acute (3) Diabetes mellitus with gastroparesis: Code(s): E11.43 - Type 2 diabetes mellitus with diabetic autonomic (poly)neuropathy Status: Acute Plan I have discussed the patient's case and plan of care with Dr. Cadena. Subjective Subjective Date/Time Seen: 11/11/23 13:59 Patient reports: still having pain Interval history: Patient's main complaint is postoperative pain in his stump. He has been receiving oxycodone and IV Dilaudid through the night for his pain. He refused getting up to the chair d/t his pain. I discussed the importance of getting up today if possible, and he agreed to work with therapy this afternoon. He has tried some liquids and is tolerating this fair. He denies any nausea or vomiting, but reports poor appetite. He denies any other complaints at this time. His stool is becoming more formed. He had one formed BM last night. Exam Const: General: comfortable and no acute distress Orientation/consciousness: patient oriented x3 Extrem: Other: Left BKA stump with dressing dry and intact, knee immobilizer in place Objective Data Vital Signs Vital Signs: Vital Signs - 24 hr 11/10/23 15:15 11/10/23 15:30 11/10/23 15:45 Temperature 98 F Pulse Rate 81 85 88 Respiratory Rate 20 16 14 Blood Pressure 127/77 159/86 H 140/80 Pulse Oximetry 98 100 100 Oxygen Delivery Simple Face Mask Nasal Cannula Nasal Cannula Oxygen Flow Rate 10 4 2 Fraction of Inspired Oxygen 11/10/23 16:00 11/10/23 16:15 11/10/23 16:30 Temperature Pulse Rate 90 91 90 Respiratory Rate 14 14 14 Blood Pressure 142/79 H 154/85 H 134/79 Pulse Oximetry 98 99 98 Oxygen Delivery Nasal Cannula Nasal Cannula Nasal Cannula Oxygen Flow Rate 2 2 2 Fraction of Inspired Oxygen 11/10/23 16:45 11/10/23 16:55 11/10/23 17:15 Temperature 98.1 F Pulse Rate 88 94 93 Respiratory Rate 14 14 18 Blood Pressure 151/83 H 140/78 162/91 H Pulse Oximetry 98 98 97 Oxygen Delivery Nasal Cannula Nasal Cannula Oxygen Flow Rate 2 2 Fraction of Inspired Oxygen 11/10/23 17:30 11/10/23 18:00 11/10/23 19:28 Temperature 97.9 F 98.0 F 97.6 F Pulse Rate 89 86 85 Respiratory Rate 18 16 16 Blood Pressure 166/96 H 148/89 H 145/91 H Pulse Oximetry 97 97 99 Oxygen Delivery Oxygen Flow Rate Fraction of Inspired Oxygen 11/10/23 20:42 11/11/23 02:43 11/11/23 05:39 Temperature 97.6 F 97.6 F 97.9 F Pulse Rate 91 80 79 Respiratory Rate 16 16 16 Blood Pressure 159/91 H 133/81 135/83 Pulse Oximetry 99 99 99 Oxygen Delivery Oxygen Flow Rate Fraction of Inspired Oxygen 11/11/23 06:43 11/11/23 08:00 11/11/23 12:13 Temperature 99.2 F Pulse Rate 77 Respiratory Rate 18 Blood Pressure 142/84 H Pulse Oximetry 99 99 Oxygen Delivery Room Air Nasal Cannula Oxygen Flow Rate 2 Fraction of Inspired Oxygen 11/11/23 12:00 Temperature 98.0 F Pulse Rate 81 Respiratory Rate 20 Blood Pressure 132/79 Pulse Oximetry 97 Oxygen Delivery Oxygen Flow Rate Fraction of Inspired Oxygen Intake/Output Intake/Output: Intake & Output 11/08/23 11/09/23 11/10/23 11/11/23 23:59 23:59 23:59 23:59 Intake Total 422 400 240 Output Total 1150 750 Balance -728 -350 240 Meds/Results Medications: Active Medications Generic Name Dose Route Start Last Admin Trade Name Freq PRN Reason Stop Dose Admin Acetaminophen 650 mg 11/10/23 1
[2023-11-11] MEDS: IBUPROFEN IV 800 MG/200 ML 800 MG/200 ML BAG 400 MG IVPB ×2 (14:19→21:10)
[2023-11-11] MEDS: MAGNESIUM OXIDE 400 MG TABLET PO (14:19)
--- NOTE | 2023-11-11 14:26 | WPDANESPN ---
Anes - Prog Note Post-Op Date/Time: 11/11/23 14:26 Cardiovascular status: normal Respiratory status: normal Airway patency: baseline Mental status: baseline Post-Op hydration status: other (anemia) Vital Signs: Last Vital Signs Temp 98.0 F 11/11/23 12:00 Pulse 81 11/11/23 12:00 Resp 20 11/11/23 12:00 BP 132/79 11/11/23 12:00 Pulse Ox 99 11/11/23 12:13 O2 Del Method Nasal Cannula 11/11/23 12:13 O2 Flow Rate 2 11/11/23 12:13 FiO2 28 11/11/23 12:13 Pain Score (VAS): 0/10 I/O: Intake & Output 11/10/23 11/11/23 11/11/23 23:59 07:59 15:59 Intake Total 400 240 Balance 400 240 Laboratory Tests 11/11/23 05:51 11/11/23 05:51 11/09/23 11/10/23 11/10/23 03:45 15:38 20:19 WBC RBC Hgb Hct MCV MCH MCHC RDW Plt Count MPV Immature Gran % (Auto) Neut % (Auto) Lymph % (Auto) [place] % (Auto) Eos % (Auto) Baso % (Auto) Lymph # (Auto) [place] # (Auto) Eos # (Auto) Baso # (Auto) Abs Immat Gran (auto) Absolute Neuts (auto) Absolute Nucleated RBC Nucleated RBC % Sodium Potassium Chloride Carbon Dioxide Anion Gap BUN Creatinine Estim Creat Clear Calc Estimated GFR Glucose POC Capillary Glucose 167 H 176 H Hemoglobin A1c 8.3 H Calcium Magnesium Total Bilirubin AST ALT Alkaline Phosphatase Total Protein Albumin 11/11/23 11/11/23 11/11/23 05:51 08:03 11:57 WBC 10.8 H RBC 4.45 L Hgb 12.7 L Hct 37.8 L MCV 84.9 MCH 28.5 MCHC 33.6 RDW 12.9 Plt Count 191 MPV 9.4 Immature Gran % (Auto) 0.3 Neut % (Auto) 71.8 Lymph % (Auto) 17.3 L [place] % (Auto) 8.6 H Eos % (Auto) 1.7 Baso % (Auto) 0.3 Lymph # (Auto) 1.88 [place] # (Auto) 0.9 H Eos # (Auto) 0.2 Baso # (Auto) 0.0 Abs Immat Gran (auto) 0.03 Absolute Neuts (auto) 7.8 H Absolute Nucleated RBC 0.000 Nucleated RBC % 0.0 Sodium 137 Potassium 3.5 Chloride 102 Carbon Dioxide 29 Anion Gap 6 BUN 10 Creatinine 0.60 L Estim Creat Clear Calc 131 Estimated GFR > 60 Glucose 147 H POC Capillary Glucose 158 H 190 H Hemoglobin A1c Calcium 8.8 Magnesium 1.7 Total Bilirubin 0.6 AST 24 ALT 16 Alkaline Phosphatase 73 Total Protein 6.0 L Albumin 3.6 Post-procedural complaints: none Patient Feedback: Patient satisfied with anesthetic care.
[2023-11-11 16:56] LABS: Glucose Point of Care 214 mg/dl (65-105)
[2023-11-11] MEDS: GABAPENTIN 100 MG CAPSULE PO (17:01)
[2023-11-11] MEDS: INSULIN ASPART (*BKC) 100 UNITS/ML SUB-Q (17:02)
[2023-11-11] MEDS: fentaNYL CITRATE INJ (*CRX) 100 MCG/2 ML VIAL 25 MCG IV PUSH ×2 (17:03→21:14)
[2023-11-11] MEDS: ONDANSETRON INJ 4 MG/2 ML VIAL IV PUSH ×2 (17:10→21:17)
[2023-11-11 20:18] LABS: Glucose Point of Care 144 mg/dl (65-105)
[2023-11-11] MEDS: MELATONIN 3 MG TABLET PO (21:12)
[2023-11-12] VITALS: BP 122/70; PULSE 86; RESP 18; TEMP 36.4; O2SAT 98
[2023-11-12] MEDS: KETOROLAC 30 MG/ML VIAL (*BKC) IV PUSH (00:33)
[2023-11-12] MEDS: IBUPROFEN IV 800 MG/200 ML 800 MG/200 ML BAG 400 MG IVPB ×3 (02:02→15:55)
[2023-11-12] MEDS: oxyCODONE/ACETAMINOPHEN (*CRX) 10-325 MG TABLET 1 TAB PO ×2 (03:31→09:42)
[2023-11-12 06:17] VITALS: BP 127/73; PULSE 82; RESP 18; TEMP 36.4; O2SAT 99
[2023-11-12 06:31] LABS: Basophils Percent Auto 0.2 % (0.2-1.2); Eosinophils Absolute Auto 0.1 K/mm3 (0-0.3); Eosinophils Percent Auto 1.4 % (0-4.4); Hematocrit 37.4 % (42.0-52.0); Hemoglobin 12.6 g/dL (14.0-18.0); Immature Granulocyte Absolute 0.03 K/mm3 (0.00-0.031); Immature Granulocyte Percent A 0.3 % (0-0.5); Lymphocytes Percent Auto 17.8 % (18.3-44.2); Mean Corpuscular HGB Conc 33.7 g/dl (32-36); Mean Corpuscular Hemoglobin 28.4 pg (26-34); Mean Corpuscular Volume 84.4 fl (80-100); Mean Platelet Volume 9.4 fl (7.4-10.4); Monocytes Absolute Auto 1.1 K/mm3 (0.1-0.6); Monocytes Percent Auto 11.2 % (2.6-8.5); Neutrophils Absolute Auto 6.6 K/mm3 (1.3-6.7); Neutrophils Percent Auto 69.1 % (45.5-73.1); Platelet Count Result 176 k/mm3 (150-375); Red Blood Count 4.43 M/mm3 (4.6-6.20); Red Cell Distribution Width 12.8 % (11.5-14.5); White Blood Count 9.5 K/mm3 (4.5-10.0)
[2023-11-12] MEDS: HYDROmorphone HCL INJ (*CRX) 1 MG/ML SYR IV PUSH ×2 (06:32→12:37)
[2023-11-12 06:45] LABS: Alanine Aminotransferase 16 U/L (6-50); Albumin Level 3.8 g/dL (3.5-5.1); Alkaline Phosphatase 75 U/L (38-126); Anion Gap 8 mmol/L (4-12); Aspartate Amino Transferase 29 U/L (17-59); Bilirubin,Total 0.7 mg/dL (0.2-1.3); Blood Urea Nitrogen 10 mg/dL (9-20); Calcium 8.7 mg/dL (8.4-10.2); Carbon Dioxide 29 mmol/L (22-30); Chloride 102 mmol/L (98-107); Estimated CRCL calculation 131 ml/min; Estimated Glomerular Filt Rate > 60; Glucose 154 mg/dL (65-110); Magnesium 1.8 mg/dL (1.6-2.3); Potassium 3.2 mmol/L (3.4-5.0); Sodium 139 mmol/L (137-145)
[2023-11-12 08:00] VITALS: PULSE 82; RESP 18; O2SAT 99
[2023-11-12 08:20] LABS: Glucose Point of Care 150 mg/dl (65-105)
[2023-11-12] MEDS: POTASSIUM CHLORIDE 20 MEQ PACKET (FOR LIQUID) 40 MEQ PO (09:42)
[2023-11-12] MEDS: ENOXAPARIN 40 MG/0.4 ML SYRINGE SUB-Q (09:42)
[2023-11-12] MEDS: SERTRALINE HCL 50 MG TABLET 100 MG PO (09:42)
[2023-11-12] MEDS: FIDAXOMICIN 200 MG TABLET PO (09:44)
[2023-11-12] MEDS: GABAPENTIN 100 MG CAPSULE PO ×2 (09:44→12:32)
[2023-11-12] MEDS: PANTOPRAZOLE SODIUM IV 40 MG VIAL IV PUSH (09:44)
[2023-11-12] MEDS: INSULIN GLARGINE (*BKC) 100 UNITS/ML 30 UNITS SUB-Q (09:48)
[2023-11-12 10:17] VITALS: BP 141/73; PULSE 91; RESP 17; TEMP 36.8; O2SAT 99
[2023-11-12 11:43] LABS: Glucose Point of Care 213 mg/dl (65-105)
--- NOTE | 2023-11-12 11:58 | WPDPN ---
Progress Note: A&P Assessment and Plan (1) Acute osteomyelitis of left foot: Code(s): M86.172 - Other acute osteomyelitis, left ankle and foot Status: Acute Assessment and Plan: patient with acute on chronic OM of left lower leg, patient was seen by surgery service and patient decided to have his left lower leg amputated to prevent further spread of the infection. patient will be seen by the surgeon and further recommendation to follow. (2) C. difficile colitis: Code(s): A04.72 - Enterocolitis due to Clostridium difficile, not specified as recurrent Status: Acute Assessment and Plan: patient stool are still loose, will continue dificid will monitor and plan. (3) Diabetes mellitus with gastroparesis: Code(s): E11.43 - Type 2 diabetes mellitus with diabetic autonomic (poly)neuropathy Status: Acute Assessment and Plan: will continue home regiment and monitor with sliding scale (4) Hypertension: Code(s): I10 - Essential (primary) hypertension Status: Acute Assessment and Plan: will continue home regiment Plan patient with acute on chronic OM of left lower leg, patient was seen by surgery service and patient decided to have his left lower leg amputated to prevent further spread of the infection. patient will be seen by the surgeon and further recommendation to follow. interval history 11/12/2023: on 11/09 patient had left lower leg BKA, post op day 2 patient continue to complaints of pain in the left lower leg surgical site, patient is treated with hydromorphone, and oxycodone, will add lidoderm patches to help control pain, patient is under stress and has history of depression taking sertraline, and further recommendation to follow, patient with C diff stool are beginning to form and his white counts are improving will continue to monitor. discuss with surgery service goal is control pain, and transfer the patient to rehab. Subjective Date/time seen: 11/12/23 11:58 Interval history: patient with acute on chronic OM of left lower leg, patient was seen by surgery service and patient decided to have his left lower leg amputated to prevent further spread of the infection. patient will be seen by the surgeon and further recommendation to follow. interval history 11/12/2023: on 11/09 patient had left lower leg BKA, post op day 2 patient continue to complaints of pain in the left lower leg surgical site, patient is treated with hydromorphone, and oxycodone, will add lidoderm patches to help control pain, patient is under stress and has history of depression taking sertraline, and further recommendation to follow, patient with C diff stool are beginning to form and his white counts are improving will continue to monitor. discuss with surgery service goal is control pain, and transfer the patient to rehab. Review of Systems Review of Systems: All systems reviewed & are unremarkable except as noted in HPI and below Exam Narrative: General: patient is comfortable. HEENT: eyes are non icteric, and clear HEART: R R, S1 S2 Lungs: CTA ABD: obese Lower ext: no edema SKIN: no obvious rash Neuro: grossly intact Objective Data Vital Signs Vital Signs: Vital Signs - 24 hr 11/11/23 12:13 11/11/23 12:00 11/11/23 14:23 Temperature 36.7 C Pulse Rate 81 Respiratory Rate 20 Blood Pressure 132/79 Pulse Oximetry 99 97 Oxygen Delivery Nasal Cannula Room Air Oxygen Flow Rate 2 Fraction of Inspired Oxygen 28 11/11/23 14:34 11/11/23 16:00 11/11/23 20:00 Temperature 36.8 C 37.1 C Pulse Rate 87 90 Respiratory Rate 20 18 Blood Pressure 120/76 131/77 Pulse Oximetry 99 99 Oxygen Delivery Room Air Oxygen Flow Rate Fraction of Inspired Oxygen 11/12/23 00:00 11/11/23 20:00 11/12/23 06:17 Temperature 36.4 C 36.4 C L Pulse Rate 86 82 Respiratory Rate 18 18 Blood Pressure 122/70 127/73 Pulse Oximetry 98 99 O
[2023-11-12] MEDS: MAGNESIUM OXIDE 400 MG TABLET PO (12:32)
[2023-11-12] MEDS: LIDOCAINE 5% PATCH 3 PATCH TRANSDERM (12:32)
[2023-11-12] MEDS: INSULIN ASPART (*BKC) 100 UNITS/ML SUB-Q (12:34)
--- NOTE | 2023-11-12 13:18 | PM.PNGS ---
Progress Note: A&P Assessment and Plan (1) Acute osteomyelitis of left foot: Code(s): M86.172 - Other acute osteomyelitis, left ankle and foot Status: Acute Assessment and Plan: Postop day 2 following left BKA. Pain control improved with Percocet, scheduled ibuprofen, gabapentin and prn Dilaudid. Wound looks good Discussed with Maritime Officer--patient preference is home with Home Health for wound care and PT. OK to discharge from surgical standpoint. Follow up in office in 2 weeks. (2) C. difficile colitis: Code(s): A04.72 - Enterocolitis due to Clostridium difficile, not specified as recurrent Status: Acute (3) Diabetes mellitus with gastroparesis: Code(s): E11.43 - Type 2 diabetes mellitus with diabetic autonomic (poly)neuropathy Status: Acute Subjective Subjective Date/Time Seen: 11/12/23 13:18 Interval history: Patient having much better pain control today. Tolerating activity with PT/OT. States he does not want to go to acute rehab and would prefer Home Health for wound care and PT. Exam Extrem: Other: L BKA bandage removed. Old blood soaked into gauze and ABD pad. No active bleeding noted once bandage removed. Healthy incision intact with loyda. No erythema. Objective Data Vital Signs Vital Signs: Vital Signs - 24 hr 11/11/23 14:23 11/11/23 14:34 11/11/23 16:00 Temperature 36.8 C Pulse Rate 87 Respiratory Rate 20 Blood Pressure 120/76 Pulse Oximetry 99 Oxygen Delivery Room Air Room Air Fraction of Inspired Oxygen 11/11/23 20:00 11/12/23 00:00 11/11/23 20:00 Temperature 37.1 C 36.4 C Pulse Rate 90 86 Respiratory Rate 18 18 Blood Pressure 131/77 122/70 Pulse Oximetry 99 98 Oxygen Delivery Room Air Fraction of Inspired Oxygen 11/12/23 06:17 11/12/23 08:00 11/12/23 10:17 Temperature 36.4 C L 36.8 C Pulse Rate 82 82 91 Respiratory Rate 18 18 17 Blood Pressure 127/73 141/73 H Pulse Oximetry 99 99 99 Oxygen Delivery Room Air Fraction of Inspired Oxygen 28 Intake/Output Intake/Output: Intake & Output 11/09/23 11/10/23 11/11/23 11/12/23 23:59 23:59 23:59 23:59 Intake Total 422 400 730 570 Output Total 3821 282 6997 1050 [facility] [phone] Meds/Results Medications: Active Medications Generic Name Dose Route Start Last Admin Trade Name Freq PRN Reason Stop Dose Admin Acetaminophen 650 mg 11/10/23 16:58 Acetaminophen 325 Mg Tablet PO Q6H PRN Pain Rated 1-3 Dextrose 12.5 gm 11/09/23 02:23 Dextrose 50% 25 Gm/50 Ml Syringe IV PUSH PRN PRN Hypoglycemia Protocol Dicyclomine HCl 20 mg 11/09/23 02:22 Dicyclomine Hcl 10 Mg Capsule PO QID PRN Abdominal Cramping Enoxaparin Sodium 40 mg 11/10/23 09:00 11/12/23 09:42 Enoxaparin 40 Mg/0.4 Ml Syringe SUB-Q 40 mg DAILY OTILIO Administration Fidaxomicin 200 mg 11/09/23 09:00 11/12/23 09:44 Fidaxomicin 200 Mg Tablet PO 11/13/23 21:01 200 mg Q12HR OTILIO Administration Gabapentin 100 mg 11/11/23 17:00 11/12/23 12:32 Gabapentin 100 Mg Capsule PO 100 mg TID OTILIO Administration Glucagon 1 mg 11/09/23 02:23 Glucagon For Inj 1 Mg Vial IM PRN PRN Hypoglycemia Protocol Glucose 15 gm 11/09/23 02:23 Glucose Oral Gel 15 Gm Of Glucse In 37.5 Gm Tube PO PRN PRN Hypoglycemia Protocol Hydromorphone HCl 1 mg 11/12/23 01:56 11/12/23 12:37 Hydromorphone Hcl Inj (*Crx) 1 Mg/Ml Syr IV PUSH 1 mg Q4H PRN Administration Pain Rated 7-10 Dextrose 1,000 mls @ 100 mls/hr 11/09/23 02:23 Dextrose 5% 1,000 Ml IVPB PRN PRN Hypoglycemia Protocol Ibuprofen 800 mg in 200 mls @ 400 mls/hr 11/12/23 03:00 11/12/23 09:43 Caldolor 800 Mg/200 Ml IVPB 400 mls/hr Q6H OTILIO Administration Insulin Aspart 4 - 8 units 11/09/23 08:00 11/12/23 12:34 Insulin Aspart (*Bkc) 100 Units/Ml SUB-Q 4 units TIDWM S
[2023-11-12 14:00] VITALS: BP 141/55; PULSE 91; RESP 17; TEMP 36.8; O2SAT 99
[2023-11-12] MEDS: oxyCODONE/ACETAMINOPHEN (*CRX) 5-325 MG TABLET 1 TABLET PO (16:01)
[2023-11-12 16:04] LABS: Glucose Point of Care 142 mg/dl (65-105)
--- NOTE | 2023-11-12 17:03 | PM.DS ---
DS: Admitting Diagnosis Discharge Date 11/12/2023 Admitting Diagnosis osteomyelitis of left, C diff DS: Discharge Diagnosis Discharge Diagnosis (1) Acute osteomyelitis of left foot: Code(s): M86.172 - Other acute osteomyelitis, left ankle and foot Status: Acute (2) C. difficile colitis: Code(s): A04.72 - Enterocolitis due to Clostridium difficile, not specified as recurrent Status: Acute DS: Summary Hospital Course Hospital Course: on 11/09 patient had left lower leg BKA, post op day 2 patient continue to complaints of pain in the left lower leg surgical site, patient is treated with hydromorphone, and oxycodone, will add lidoderm patches to help control pain, patient is under stress and has history of depression taking sertraline, and further recommendation to follow, patient with C diff stool are beginning to form and his white counts are improving will continue to monitor. discuss with surgery service goal is control pain, and transfer the patient to rehab. Today postop day 2, patient clinical symptoms are improving, patient seen by surgery service wound looks, pain is controlled, patient wish to go home with , will discharge patient today, patient will follow up with his surgeon as scheduled. Time Spent with Patient Time attestation: Total time spent providing and/or coordinating discharge services: Exam Narrative: General: patient is comfortable. HEENT: eyes are non icteric, and clear HEART: R R, S1 S2 Lungs: CTA ABD: obese Lower ext: no edema left leg with wound dressing. SKIN: no obvious rash Neuro: grossly intact DS: Data Data Completed and Pending Pending studies at discharge: Pending at discharge 11/10/23 14:24 Surgical [PTH] Routine Labs on day of discharge: Labs from last 24 hours 11/12/23 11/12/23 11/12/23 15:39 11:17 07:56 WBC RBC Hgb Hct MCV MCH MCHC RDW Plt Count MPV Immature Gran % (Auto) Neut % (Auto) Lymph % (Auto) [place] % (Auto) Eos % (Auto) Baso % (Auto) Lymph # (Auto) [place] # (Auto) Eos # (Auto) Baso # (Auto) Abs Immat Gran (auto) Absolute Neuts (auto) Absolute Nucleated RBC Nucleated RBC % Sodium Potassium Chloride Carbon Dioxide Anion Gap BUN Creatinine Estim Creat Clear Calc Estimated GFR Glucose POC Capillary Glucose 142 H 213 H 150 H Calcium Magnesium Total Bilirubin AST ALT Alkaline Phosphatase Total Protein Albumin 11/12/23 11/11/23 05:36 20:15 WBC 9.5 RBC 4.43 L Hgb 12.6 L Hct 37.4 L MCV 84.4 MCH 28.4 MCHC 33.7 RDW 12.8 Plt Count 176 MPV 9.4 Immature Gran % (Auto) 0.3 Neut % (Auto) 69.1 Lymph % (Auto) 17.8 L [place] % (Auto) 11.2 H Eos % (Auto) 1.4 Baso % (Auto) 0.2 Lymph # (Auto) 1.70 [place] # (Auto) 1.1 H Eos # (Auto) 0.1 Baso # (Auto) 0.0 Abs Immat Gran (auto) 0.03 Absolute Neuts (auto) 6.6 Absolute Nucleated RBC 0.000 Nucleated RBC % 0.0 Sodium 139 Potassium 3.2 L Chloride 102 Carbon Dioxide 29 Anion Gap 8 BUN 10 Creatinine 0.60 L Estim Creat Clear Calc 131 Estimated GFR > 60 Glucose 154 H POC Capillary Glucose 144 H Calcium 8.7 Magnesium 1.8 Total Bilirubin 0.7 AST 29 ALT 16 Alkaline Phosphatase 75 Total Protein 7.0 Albumin 3.8 Discharge Plan Discharge Attending physician on discharge: Bradyen Damon Consulting providers: Jac Cadena; Emeka Leyva Jr.; Charles Artis; Nadeem Wheeler; Damon Montenegro; Ciara Barkley Discharging Clinician: Flakito Tolentino Patient Disposition: Home Health Service Activity: september shower Diet: diabetic Wound Care Instructions: other - see discharge instructions Discharge Instructions: Left below-knee amputation wound care instructions Okay to shower, no bathing or soaking leg underwater
[2023-11-12 18:00] VITALS: BP 122/72; PULSE 87; RESP 17; TEMP 36.6; O2SAT 100
== END 2023-11-12 18:15 | disposition home health service (06) | DRG 41 ==
LOC: ANHED 19:49 → ANH3MEDSUR 11-09 00:40
PROVIDERS: Nurse Practitioner; Surgery; Admitting Provider Internal Medicine; Emergency Provider Student in an Organized Health Care Education/Training Program; PCP Emergency Medicine; Visit Provider Family Medicine
PROC: 0Y6J0Z1 Detachment at Left Lower Leg, High, Open Approach (ICD-10-PCS; CPT 27882; principal; 2023-11-10 14:00)
DX: E11.43 Type 2 diabetes mellitus with diabetic autonomic (poly)neuropathy (principal); M86.172 Other acute osteomyelitis, left ankle and foot; A04.72 Enterocolitis due to Clostridium difficile, not specified as recurrent; K31.84 Gastroparesis; L97.524 Non-pressure chronic ulcer of other part of left foot with necrosis of bone; I10 Essential (primary) hypertension; I25.10 Atherosclerotic heart disease of native coronary artery without angina pectoris; F32.A Depression, unspecified; Z95.2 Presence of prosthetic heart valve; Z95.1 Presence of aortocoronary bypass graft
CPT/HCPCS: 36415; 71046; 80053; 81003; 82948; 83036; 83605; 83690; 83735; 84484; 85025; 85610; 85730; 88307; 88311; 93005; 96372; 96374; 96375; 97110; 97161; 97165; 97530; 97535; 99199; 99285; A9270; G0378; J0330; J0500; J1170; J1200; J1650; J1741; J1815; J1885; J2250; J2270; J2405; J2470; J2704; J2765; J3010; J3475; J7120; L1830

== ENCOUNTER 2024-01-06 15:18 | Outpatient (CLI) | payer OTHER, SELFPAY ==
--- NOTE | ~2024-01-06 | CT_ITS ---
EXAMINATION: CT facial bones wo con DATE: 01/06/2024 16:00 INDICATION: Unspecified injury of face, initial encounter. TECHNIQUE: Computed tomography (CT) of the facial bones and maxillofacial region was performed withou t intravenous contrast. Automated exposure control and iterative reconstruction technique were employ ed. The dose-length product was 315.92 mGy-cm. COMPARISON: None. FINDINGS: There is rightward deviation of anterior nasal septum and leftward deviation of posterior n tamika septum. There are nondisplaced fractures of the anterior and posterolateral harris of left maxill lana sinus and floor and lateral wall of left orbit. There is mucosal thickening in the paranasal sinu ses. IMPRESSION: 1. Left zygomaticomaxillary complex fractures. Reviewed, dictated and finalized at location A.
== END 2024-01-06 15:19 | disposition home or self-care (01) ==
LOC: ANHIMG 15:19
PROVIDERS: PCP Emergency Medicine; Visit Provider Emergency Medicine
DX: S02.40FA Zygomatic fracture, left side, initial encounter for closed fracture (principal); X58.XXXA Exposure to other specified factors, initial encounter
CPT/HCPCS: 70486

== ENCOUNTER 2024-02-13 00:08 | Inpatient (IN) | payer OTHER, SELFPAY ==
[2024-02-13] VITALS (26 sets, daily range): BP systolic 112–178; BP diastolic 65–118; PULSE 81–130; RESP 14–24; TEMP 36.7–37.1; O2SAT 89–100
--- NOTE | ~2024-02-13 | CT_ITS ---
EXAMINATION: CT abdomen pelvis wo con DATE: 02/13/2024 01:22 INDICATION: Nausea, vomiting, and diarrhea. TECHNIQUE: Computed tomography (CT) of the abdomen and pelvis was performed without intravenous contr ast. Automated exposure control and iterative reconstruction technique were employed. The dose-length product was 870.03 mGy-cm. COMPARISON: CT abdomen and pelvis 11/03/2023, 10/02/23 FINDINGS: The visualized portions of the lung bases demonstrate minimal atelectasis. No pleural effus ion. The heart size is normal. No pericardial effusion. There is wall thickening of the distal esopha jacoby, consistent with esophagitis. The liver is normal. There are changes of cholecystectomy. The sple en, pancreas, and right adrenal gland are normal. There is a 2.4 cm mass in left adrenal gland measur ing soft tissue attenuation, stable from 10/02/2023, likely an adenoma. There are cysts in the kidneys measuring up to 15 mm on the left. There is a left inguinal hernia containing fat. The bladder is di stended. The prostate is mildly enlarged. There are no dilated loops of bowel. The appendix is normal . There are no pathologically enlarged lymph nodes. There is no free intraperitoneal fluid. There is mild thoracic and lumbar spondylosis. There is a hemangioma in L4 vertebral body. IMPRESSION: 1. Wall thickening of the distal esophagus, consistent with esophagitis. Reviewed, dictated and finalized at location A.
[2024-02-13 00:36] LABS: Glucose Point of Care 441 mg/dl (65-105)
[2024-02-13] MEDS: LACTATED RINGERS 1,000 ML 999 ML IV CONT ×3 (01:01→02:12)
[2024-02-13] MEDS: diphenhydrAMINE HCl INJ 50 MG/ML VIAL 25 MG IV PUSH (01:01)
[2024-02-13] MEDS: METOCLOPRAMIDE HCL INJ 10 MG/2 ML VIAL IV PUSH ×2 (01:01→03:41)
--- NOTE | 2024-02-13 01:08 | PC.NURSE ---
Patient taken to CT via stretcher at this time.
[2024-02-13 01:13] LABS: Basophils Percent Auto 0.2 % (0.2-1.2); Hemoglobin 16.3 g/dL (14.0-18.0); Immature Granulocyte Absolute 0.07 K/mm3 (0.00-0.031); Immature Granulocyte Percent A 0.4 % (0-0.5); Lymphocytes Absolute Auto 1.45 K/mm3 (0.9-3.2); Lymphocytes Percent Auto 8.6 % (18.3-44.2); Mean Corpuscular HGB Conc 35.4 g/dl (32-36); Mean Corpuscular Hemoglobin 28.2 pg (26-34); Mean Corpuscular Volume 79.7 fl (80-100); Monocytes Absolute Auto 1.2 K/mm3 (0.1-0.6); Monocytes Percent Auto 6.9 % (2.6-8.5); Neutrophils Absolute Auto 14.1 K/mm3 (1.3-6.7); Neutrophils Percent Auto 83.9 % (45.5-73.1); Platelet Count Result 227 k/mm3 (150-375); Red Blood Count 5.77 M/mm3 (4.6-6.20); Red Cell Distribution Width 13.3 % (11.5-14.5); White Blood Count 16.8 K/mm3 (4.5-10.0)
[2024-02-13 01:24] LABS: Lactic Acid Reflex 2.1 mmol/L (0.7-2.0)
[2024-02-13 01:25] LABS: Alanine Aminotransferase 27 U/L (6-50); Albumin Level 4.8 g/dL (3.5-5.1); Alkaline Phosphatase 99 U/L (38-126); Anion Gap 19 mmol/L (4-12); Aspartate Amino Transferase 24 U/L (17-59); Bilirubin,Total 0.9 mg/dL (0.2-1.3); Blood Urea Nitrogen 31 mg/dL (9-20); Calcium 10.6 mg/dL (8.4-10.2); Carbon Dioxide 17 mmol/L (22-30); Chloride 98 mmol/L (98-107); Estimated CRCL calculation 92 ml/min; Estimated Glomerular Filt Rate > 60; Glucose 411 mg/dL (65-110); Lipase 37 U/L (23-300); Magnesium 1.5 mg/dL (1.6-2.3); Potassium 3.6 mmol/L (3.4-5.0); Sodium 134 mmol/L (137-145)
[2024-02-13 01:36] LABS: Troponin I < 0.012 ng/mL (0.000-0.034)
--- NOTE | 2024-02-13 01:39 | ED.NAVMDI ---
HPI - Nausea/Vomiting/Diarrhea General Chief complaint: Nausea/Vomiting/Diarrhea Stated complaint: it's either gastroparesis or c. diff Time Seen by Provider: 02/13/24 00:36 History of Present Illness HPI Narrative: 59-year-old male with a past medical history significant for insulin-dependent diabetes, diabetic gastroparesis, hypertension, left-sided BKA, history of DKA. He presents to the emergency department with 2 days of nausea vomiting abdominal pain and diarrhea. He was recently diagnosed with C diff several weeks ago and was treated with outpatient antibiotics and states that that improved. He presents to the emergency room today and thinks that he is having gastroparesis or recurrence of the C diff. He is having deep respirations and tachypnea with tachycardia. He is afebrile and denies any chills or rigors but states that his abdomen is hurting him and he is having profound retching and nausea/vomiting throughout the day. Worsening over last 2 days. Related Data Home Medications Medication Instructions Recorded Confirmed aspirin 81 mg tablet 81 mg PO DAILY 11/03/23 12/31/23 rosuvastatin 10 mg tablet 10 mg PO DAILY 12/18/23 12/31/23 Allergies Allergy/AdvReac Type Severity Reaction Status Date / Time iodine Allergy Rash Verified 02/13/24 00:33 Penicillins Allergy Other Verified 02/13/24 00:34 Review of Systems Review of Systems: As reviewed above in HPI [facility] Past Medical History Medical History Arteriosclerosis of bypass graft of coronary artery Epigastric pain Gastroparesis GERD (gastroesophageal reflux disease) History of diabetes mellitus History of diabetic gastroparesis Leukocytosis Nausea and vomiting in adult CLARISSA (obstructive sleep apnea) Ulcerative esophagitis Surgical History Surgical History History of amputation of toe History of ankle fusion Hx of below knee amputation 11/10/23 Family History Family History Father Diabetes mellitus Mother Psoriasis Social History Social History Smoking status: Never smoker Alcohol intake: never Substance use: current Substance use type: marijuana Do You Feel Safe in your Home?: Yes Lack of Transportation: No Lack of Food: Never True Current Housing: I Have Housing Concerned About Future Housing: No Difficulty Paying Gas/Electric Bills: No Difficulty Paying for Meds: No Currently Unemployed: No Education: High School Diploma/GED Difficulty w/ Childcare or Family Care: No Spiritual care concerns: No Exam Narrative: GENERAL: Ill-appearing, retching and vomiting throughout the encounter, diarrhea evident on examination deep respirations. HEAD: [Normocephalic, atraumatic.] EYES: [PERRLA and EOMI.] ENT: Nares clear, no rhinorrhea or epistaxis. Mucous membranes dry. NECK: Supple. CHEST: Clear to auscultation but deep respirations, Kussmaul respirations, no wheezing or rhonchi HEART: Tachycardic rate but regular rhythm. No murmur heard. [Normal peripheral pulses.] ABDOMEN: Protuberant abdomen without distention, mildly tender in the midepigastrium, [No rigidity or guarding] EXTREMITIES: Normal range of motion. Left BKA noted SKIN: Warm, dry, no rash. NEURO: [No focal deficits]. Alert and oriented [x3.] PSYCH: [Normal mood and affect.] Course Vital Signs Vital signs: Vital Signs Temperature 36.7 C 02/13/24 00:09 Pulse Rate 130 H 02/13/24 00:09 Respiratory Rate 18 02/13/24 00:09 Blood Pressure 118/78 02/13/24 00:09 Pulse Oximetry 100 02/13/24 00:09 Oxygen Delivery Room Air 02/13/24 00:09 Temperature 36.7 C 02/13/24 00:09 Pulse Rate 112 H 02/13/24 03:18 Respiratory Rate 20 02/13/24 03:18 Blood Pressure 178/94 H 02/13/24 03:18 P
--- NOTE | 2024-02-13 02:03 | PC.NURSE ---
Patient assisted to BSC.
[2024-02-13 02:14] LABS: Influenza A QL RT-PCR Negative (Negative); Influenza B QL RT-PCR Negative (Negative); SARS-CoV-2 RNA PCR Negative (Negative)
[2024-02-13 02:17] LABS: Hemoglobin A1C 9.1 % (<5.7)
[2024-02-13] MEDS: POTASSIUM CHLORIDE INJ 40 MEQ in LACTATED RINGERS 1,000 ML 150 MEQ IV CONT (02:58)
[2024-02-13] MEDS: INSULIN HUMAN REGULAR (*BKC) 100 UNITS in SODIUM CHLORIDE 0.9% IV 99 ML 9 UNITS IV CONT (03:25)
[2024-02-13] MEDS: FAMOTIDINE 20 MG/2 ML VIAL IV PUSH (03:41)
--- NOTE | 2024-02-13 03:44 | PC.NURSE ---
Patient continuously removing monitoring equipment. Patient also used BSC for urination and BM, patient was aware of need for urine specimen and did not collect one.
[2024-02-13 04:10] LABS: Reflex Lactic Acid Yes or No Add Lactic
--- NOTE | 2024-02-13 04:18 | PC.NURSE ---
Spoke with pharmacy, spoke to amelie Avelar to run abx in same line as insulin.
--- NOTE | 2024-02-13 04:22 | ECG_ITS ---
Test Date: 2024-02-13 04:27:08 Measurements Intervals [place] Rate: 117 P: 56 SD: 167 QRS: 67 QRSD: 90 T: 70 QT: 427 QTc: 597 Interpretive Statements SINUS TACHYCARDIA SEPTAL MYOCARDIAL INFARCTION , PROBABLY OLD [40+ ms Q WAVE IN V1/V2] Compared to ECG 11/08/2023 22:41:01 Sinus rhythm no longer present Myocardial infarct finding still present Electronically Signed On 02-13-2024 08:35:06 CDT by Ivania Muñiz M.D.
[2024-02-13 04:24] LABS: Glucose Point of Care 321 mg/dl (65-105)
[2024-02-13 04:46] LABS: Lactic Acid 1.5 mmol/L (0.7-2.0)
[2024-02-13 05:03] LABS: Troponin I 0.023 ng/mL (0.000-0.034)
[2024-02-13 05:15] LABS: Anion Gap 13 mmol/L (4-12); Blood Urea Nitrogen 25 mg/dL (9-20); Calcium 10.3 mg/dL (8.4-10.2); Carbon Dioxide 20 mmol/L (22-30); Chloride 103 mmol/L (98-107); Estimated CRCL calculation 116 ml/min; Estimated Glomerular Filt Rate > 60; Glucose 268 mg/dL (65-110); Potassium 3.4 mmol/L (3.4-5.0); Sodium 136 mmol/L (137-145)
[2024-02-13] MEDS: metroNIDAZOLE 500 MG/ISO 100ML 500 MG/100 ML BAG 100 MG IVPB ×2 (05:15→09:49)
[2024-02-13 05:23] LABS: Add Urine Microscopic? NO; Appearance Urine Clear (Clear); Bilirubin Urine Negative (Negative); Blood Urine Negative (Negative); Color Urine Yellow (Yellow); Glucose Urine UA 3+ mg/dL (Negative); Ketones Urine 2+ mg/dL (Negative); Leukocyte Esterase Ur Negative LEU/UL (Negative); Nitrate Urine Negative (Negative); Protein Urine Negative (Negative); Specific Grav Ur 1.027 (1.001-1.035); Urobilinogen Urine 0.2 mg/dL (<2.0); pH Urine 5.5 (5.0-9.0)
[2024-02-13 05:24] LABS: Glucose Point of Care 243 mg/dl (65-105)
--- NOTE | 2024-02-13 05:35 | ADMGEN ---
This patient, Charles Castorena, was admitted to Intensive Care Unit-3. Patient/family oriented to hospital policies and general routines including ID bracelet, bed and alarms, visiting hours, pain management, procedures, bathroom and other care routines, personal items, smoking policy, room service/diet, and visiting hours. Information on how to activate the Rapid Response Team has been discussed. Patient/Family are encouraged to report perceived risks to care and to ask questions if they do not understand what they are told or what they should do.
[2024-02-13 06:21] LABS: Glucose Point of Care 131 mg/dl (65-105)
[2024-02-13 06:25] LABS: Anion Gap 12 mmol/L (4-12); Blood Urea Nitrogen 25 mg/dL (9-20); Calcium 10.7 mg/dL (8.4-10.2); Carbon Dioxide 21 mmol/L (22-30); Chloride 105 mmol/L (98-107); Estimated CRCL calculation 116 ml/min; Estimated Glomerular Filt Rate > 60; Glucose 128 mg/dL (65-110); Potassium 3.5 mmol/L (3.4-5.0); Sodium 138 mmol/L (137-145)
[2024-02-13] MEDS: DEXTROSE 5%/0.45% SOD CHL 1,000 ML 150 ML IV CONT (06:31)
--- NOTE | 2024-02-13 06:39 | PM.IMHP ---
H&P: HPI History of Present Illness Date/Time: 02/13/24 06:39 Chief Complaint: Nausea vomiting diarrhea abdominal pain Narrative: 59-year-old male with a past medical history insulin-dependent diabetes mellitus status post left BKA, gastroparesis, hypertension, GERD, marijuana use. He presents to [facility] on 02/13/2024 with complaint of 2 days of nausea and vomiting and inability to tolerate p.o. along with associated abdominal pain. On the day of admission he also had to loose dark stools moderate in amount. Watery. Patient does report he had C diff several weeks prior and was treated successfully with outpatient antibiotics. He does not know what he takes at home for gastro paresis. He has been smoking marijuana for some time. Denies illicit drug use or alcohol use. Reports being compliant with medications otherwise. He lives at home. Uses crutches to ambulate. ER evaluation demonstrated tachypnea and tachycardia and elevated blood pressure 168/101. WBC count 16.8, hemoglobin 16.3, platelet 227, sodium 134, bicarb 17, anion gap 19, BUN 31, serum creatinine 0.9, serum glucose 441, hemoglobin 9 0.1%, lactic acid 2.1, calcium 10.6, magnesium 1.5, troponin negative x2, beta hydroxybutyrate 3.0, urinalysis positive for ketones and glucose. Influenza a and B, COVID PCR negative. CT abdomen pelvis without contrast preliminary findings demonstrating mild colonic wall thickening of the descending colon, circumferential thickening of distal esophagus, stable left adrenal nodule measuring 2.4 cm. The patient was given Reglan, ceftriaxone, metronidazole, famotidine, diphenhydramine, 3 L lactated Ringer bolus. Three Knife Trimmer consulted for DKA. Patient admitted to ICU on 02/13/2024. Review of Systems Review of Systems: All systems reviewed & are unremarkable except as noted in HPI and below (Subjective) [facility] Past Medical History Medical History Arteriosclerosis of bypass graft of coronary artery Epigastric pain Gastroparesis GERD (gastroesophageal reflux disease) History of diabetes mellitus History of diabetic gastroparesis Leukocytosis Nausea and vomiting in adult CLARISSA (obstructive sleep apnea) Ulcerative esophagitis Surgical History Surgical History History of amputation of toe History of ankle fusion Hx of below knee amputation 11/10/23 Family History Family History Father Diabetes mellitus Mother Psoriasis Social History Social History Smoking status: Never smoker Second hand tobacco smoke exposure: No Alcohol intake: former Substance use: former Substance use type: marijuana Do You Feel Safe in your Home?: Yes Lack of Transportation: No Lack of Food: Never True Current Housing: I Have Housing Concerned About Future Housing: No Difficulty Paying Gas/Electric Bills: No Difficulty Paying for Meds: No Currently Unemployed: No Education: High School Diploma/GED Difficulty w/ Childcare or Family Care: No Spiritual care concerns: No Meds Home Medications and Allergies Home Medications Medication Instructions Recorded Confirmed Type aspirin 81 mg tablet 81 mg PO DAILY 11/03/23 12/31/23 History fidaxomicin 200 mg tablet (Dificid) 200 mg PO Q12HR #14 tabs 11/06/23 12/31/23 Rx magnesium oxide 400 mg (241.3 mg 400 mg PO QAM #30 tabs 11/06/23 12/31/23 Rx magnesium) tablet gabapentin 300 mg capsule 300 mg PO TID #90 caps 11/12/23 12/31/23 Rx ibuprofen 800 mg tablet 800 mg PO Q8H PRN pain #30 tabs 11/12/23 12/31/23 Rx naloxone 4 mg/actuation nasal 4 mg intranasal Q2M PRN opioid 11/12/23 12/31/23 Rx spray (Narcan) overdose #2 ea insulin syringe,safety needle 1 mL #100 ea 12/07/23 12/31/23 Rx 31 gauge x 09/16 pantoprazole 40 mg tab
[2024-02-13 07:35] LABS: Glucose Point of Care 186 mg/dl (65-105)
--- NOTE | 2024-02-13 07:47 | PC.NURSE ---
Received report from the ED, Dior FITZGERALD, at [id number].
[2024-02-13] MEDS: POTASSIUM CHLORIDE INJ 40 MEQ in SODIUM CHLORIDE 0.9% IV 500 ML 130 MEQ IVPB (08:28)
[2024-02-13 09:05] LABS: Glucose Point of Care 268 mg/dl (65-105)
--- NOTE | 2024-02-13 09:07 | WPDCNINT ---
Assessment and Plan Assessment and plan (1) DKA (diabetic ketoacidosis): Code(s): E11.10 - Type 2 diabetes mellitus with ketoacidosis without coma Status: Acute Assessment and Plan: Patient was given IVF bolus and and is on infusion Currently on Insulin infusion and Q1H glucose monitoring Serial labs are being done Replace electrolytes as needed Will transition to SC insulin once AG is closed (2) Colitis: Code(s): K52.9 - Noninfective gastroenteritis and colitis, unspecified Status: Acute Assessment and Plan: History of recent C diff Currently on Flagyl and Rocephin. Add p.o. vancomycin Check C diff (3) GI bleed: Code(s): K92.2 - Gastrointestinal hemorrhage, unspecified Status: Acute Assessment and Plan: Patient reports dark black stool. This could be secondary to colitis. He on initial CBC he appears hemoconcentrated. He has now received fluids Protonix IV q.12 hours Treatment of colitis as above Monitor his hemoglobin transfuse if needed Consult GI Plan DVT prophylaxis -Lovenox Stress ulcer prophylaxis -PPI Nutrition - npo Code Status - Full Code Family updated at bedside Total Critical Care Time - 30 minutes Due to a high probability of clinically significant, life threatening deterioration, the patient required my highest level of preparedness to intervene emergently and I personally spent this critical care time directly and personally managing the patient. This critical care time included obtaining a history; examining the patient; pulse oximetry; ordering and review of studies; arranging urgent treatment with development of a management plan; evaluation of patient's response to treatment; frequent reassessment; and discussions with other providers. It was exclusive of separately billable procedures and treating other patients and teaching time. 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 diet along with associated abdominal pain. He also had loose dark stools moderate in amount. Watery. Patient reported in the ER that C diff several weeks prior and was treated successfully with outpatient antibiotics. He does admit to smoking marijuana but denies any other illicit drug use or alcohol use. He also reports to be Reports being compliant with medications otherwise. In ER he was tachypnea and tachycardia and elevated blood pressure 168/101. Workup in the ER showed WBC count 16.8, hemoglobin 16.3, platelet 227, sodium 134, bicarb 17, anion gap 19, BUN 31, serum creatinine 0.9, serum glucose 441, hemoglobin 9 0.1%, lactic acid 2.1, calcium 10.6, magnesium 1.5, troponin negative x2, beta hydroxybutyrate 3.0, urinalysis positive for ketones and glucose. Influenza a and B, COVID PCR negative. CT abdomen pelvis without contrast preliminary findings demonstrating mild colonic wall thickening of the descending colon, circumferential thickening of distal esophagus, stable left adrenal nodule measuring 2.4 cm. Patient was given IV fluids and started on IV antibiotics and IV insulin infusion and admitted to ICU for further management. Patient at this time states he feels much better but still has nausea and has been dry heaving. He states he had bowel movement in ICU which was dark. He denies any fever chest pain shortness a breath cough abdominal pain dysuria or hematuria. All other systems were reviewed and were negative Review of Systems Review of Systems: All systems reviewed & are unremarkable except as noted in HPI and below (HPI) PMFSH
[2024-02-13] MEDS: ONDANSETRON INJ 4 MG/2 ML VIAL IV PUSH ×3 (09:47→19:13)
[2024-02-13] MEDS: ENOXAPARIN 40 MG/0.4 ML SYRINGE SUB-Q (09:47)
[2024-02-13] MEDS: PANTOPRAZOLE SODIUM IV 40 MG VIAL IV PUSH ×2 (09:56→20:34)
[2024-02-13 09:58] LABS: Glucose Point of Care 297 mg/dl (65-105)
[2024-02-13] MEDS: SODIUM CHLORIDE 0.9% IV 1,000 ML 150 ML IV CONT (10:05)
[2024-02-13 10:12] LABS: Anion Gap 16 mmol/L (4-12); Blood Urea Nitrogen 20 mg/dL (9-20); Calcium 9.6 mg/dL (8.4-10.2); Carbon Dioxide 14 mmol/L (22-30); Chloride 105 mmol/L (98-107); Estimated CRCL calculation 133 ml/min; Estimated Glomerular Filt Rate > 60; Glucose 286 mg/dL (65-110); Potassium 3.8 mmol/L (3.4-5.0); Sodium 135 mmol/L (137-145)
[2024-02-13 11:00] LABS: Hematocrit 41.4 % (42.0-52.0); Mean Corpuscular HGB Conc 33.8 g/dl (32-36); Mean Corpuscular Volume 82.8 fl (80-100); Mean Platelet Volume 10.2 fl (7.4-10.4); Platelet Count Result 173 k/mm3 (150-375); Red Cell Distribution Width 13.3 % (11.5-14.5); White Blood Count 16.3 K/mm3 (4.5-10.0)
[2024-02-13 11:01] LABS: Glucose Point of Care 276 mg/dl (65-105)
[2024-02-13] MEDS: METOCLOPRAMIDE HCL INJ 10 MG/2 ML VIAL 5 MG IV PUSH ×2 (11:42→17:42)
[2024-02-13] MEDS: ROSUVASTATIN 10 MG TABLET PO (11:42)
[2024-02-13] MEDS: VANCOMYCIN HCL 125 MG ORAL CAPSULE PO ×2 (11:42→17:42)
[2024-02-13] MEDS: ASPIRIN 81 MG ENTERIC TABLET PO (11:43)
--- NOTE | 2024-02-13 12:12 | WPDGICN ---
Assessment and Plan Assessment and plan (1) DKA (diabetic ketoacidosis): Code(s): E11.10 - Type 2 diabetes mellitus with ketoacidosis without coma Status: Acute (2) History of Clostridioides difficile colitis: Code(s): Z86.19 - Personal history of other infectious and parasitic diseases Status: Acute Plan The patient is currently admitted for diabetic ketoacidosis and states having watery diarrhea, with questionable bleeding. Given his recent history of C diff infection, this might be a recurrent episode of C diff colitis. Doubt active GI bleeding in the abscence of objective documentation of melena by ICU staff and negative rectal examination. In any case, a stool sample is pending and if melena is documented will plan EGD. Given his history of recent EGD showing severe esophagitis, if there is melena this might be the most like source. Along those lines, I agree with prescribing Pantoprazole 40 mg PO daily. Will only need emergent EGD over the weekend if melena is associated with hemodynamic instability. Will continue to follow. Thank you for the consult. GI Consult Note Consult date/time: 02/13/24 12:12 Reason for consult: Dark stools HPI: 59-year-old male with a past medical history insulin-dependent diabetes mellitus status post left BKA, gastroparesis, hypertension, GERD. He had an EGD in 10/2023 showing a severe erosive esophagitis with ulcers. He presents to [facility] on 02/13/2024 with complaint of 2 days of nausea and vomiting and inability to tolerate p.o. along with associated abdominal pain. On the day of admission he reports loose stools and dark, bloody aspect . Patient does report he had C diff several weeks prior and was treated successfully with outpatient antibiotics. In August this year he underwent a CABG in [place], and he is currently taking Plavix and Aspirin. ER evaluation demonstrated tachypnea and tachycardia and elevated blood pressure 168/101. WBC count 16.8, hemoglobin 16.3, platelet 227, sodium 134, bicarb 17, anion gap 19, BUN 31, serum creatinine 0.9, serum glucose 441, hemoglobin 9 0.1%, lactic acid 2.1, calcium 10.6, magnesium 1.5, troponin negative x2, beta hydroxybutyrate 3.0, urinalysis positive for ketones and glucose. Review of Systems Review of Systems: All systems reviewed & are unremarkable except as noted in HPI and below PMFSH Past Medical History Medical History Arteriosclerosis of bypass graft of coronary artery Epigastric pain Gastroparesis GERD (gastroesophageal reflux disease) History of diabetes mellitus History of diabetic gastroparesis Leukocytosis Nausea and vomiting in adult CLARISSA (obstructive sleep apnea) Ulcerative esophagitis Surgical History Surgical History History of amputation of toe History of ankle fusion Hx of below knee amputation 11/10/23 Family History Family History Father Diabetes mellitus Mother Psoriasis Sibling Diabetes mellitus Social History Social History Smoking status: Never smoker Second hand tobacco smoke exposure: No Alcohol intake: former Substance use: former Substance use type: marijuana Do You Feel Safe in your Home?: Yes Lack of Transportation: No Lack of Food: Never True Current Housing: I Have Housing Concerned About Future Housing: No Difficulty Paying Gas/Electric Bills: No Difficulty Paying for Meds: No Currently Unemployed: No Education: High School Diploma/GED Difficulty w/ Childcare or Family Care: No Spiritual care concerns: No Meds Home Medications and Allergies Home Medications Medication Instructions Recorded Confirmed Type aspirin 81 mg tablet 81 mg PO DAILY 11/03/23 02/13/24 History gabapentin 300 mg capsule 300 mg PO
[2024-02-13 12:17] LABS: Glucose Point of Care 232 mg/dl (65-105)
[2024-02-13 13:03] LABS: Glucose Point of Care 193 mg/dl (65-105)
[2024-02-13 13:05] LABS: MRSA (PCR) NOT DETECTED (NOT DETECTE)
[2024-02-13 14:00] LABS: Glucose Point of Care 179 mg/dl (65-105)
[2024-02-13 14:12] LABS: Glucose Point of Care 209 mg/dl (65-105)
--- NOTE | 2024-02-13 14:25 | PM.IMPN ---
Progress Note: A&P Assessment and Plan (1) DKA (diabetic ketoacidosis): Code(s): E11.10 - Type 2 diabetes mellitus with ketoacidosis without coma Status: Acute Assessment and Plan: Patient was given IVF bolus and and is on infusion Currently on Insulin infusion and Q1H glucose monitoring Serial labs are being done Replace electrolytes as needed Will transition to SC insulin once AG is closed (2) Colitis: Code(s): K52.9 - Noninfective gastroenteritis and colitis, unspecified Status: Acute Assessment and Plan: History of recent C diff Currently on Flagyl and Rocephin. Add p.o. vancomycin Check C diff (3) GI bleed: Code(s): K92.2 - Gastrointestinal hemorrhage, unspecified Status: Acute Assessment and Plan: Patient reports dark black stool. This could be secondary to colitis. He on initial CBC he appears hemoconcentrated. He has now received fluids Protonix IV q.12 hours Treatment of colitis as above Monitor his hemoglobin transfuse if needed Consult GI Subjective Date/time seen: 02/13/24 14:25 Interval history: Patient was evaluated at the bedside. Patient reports of tiredness. On insulin drip. Review of Systems Review of Systems: As reviewed above in HPI All systems reviewed & are unremarkable except as noted in HPI and below (HPI) Exam Narrative: General: Pt is alert awake and in NAD Lungs/Chest: Trachea central Clear BS B/L, No crackles or wheezing. Cardiac: RRR. Normal S1 S2. Systolic 3/6 murmur Circulation: Status post left BKA Abdomen: Normal bowel sounds.. Soft. NT. ND. Extremities: No clubbing, cyanosis or edema. Warm : Moser in place Neurologic: Follows commands. Moves all 4 extremities PERRL AO x3 Skin: No Rash Const: General: comfortable Other: Acute distress intermittently due to retching. Eyes: Pupils: Equal, round and reactive pupils present Neck: Neck: supple Resp: Effort & Inspection: normal respiratory effort Auscultation: clear to auscultation bilaterally Cardio: Rate: regular rate Rhythm: regular rhythm Heart sounds: Murmur heart sound present (Holosystolic grade 3/4) GI: Inspection: non-distended Auscultation: normal bowel sounds Other: Rectal examination : empty rectal vault, no masses : General: Yes bladder normal to palpation Neuro: Cranial nerves: Yes Equal, round and reactive pupils present Other: Moves all 4 extremities spontaneously. No focal deficits identified. Extrem: General: no edema Objective Data Vital Signs Vital Signs: Vital Signs - 24 hr 02/13/24 00:09 02/13/24 00:35 02/13/24 00:23 Temperature 98.1 F Pulse Rate 130 H 114 H Respiratory Rate 18 20 Blood Pressure 118/78 112/94 H Pulse Oximetry 100 97 99 Oxygen Delivery Room Air Room Air 02/13/24 00:33 02/13/24 00:46 02/13/24 01:01 Temperature Pulse Rate 119 H 109 H Respiratory Rate Blood Pressure 157/102 H Pulse Oximetry 98 91 100 Oxygen Delivery 02/13/24 01:19 02/13/24 01:30 02/13/24 01:45 Temperature Pulse Rate Respiratory Rate Blood Pressure Pulse Oximetry 98 96 97 Oxygen Delivery 02/13/24 02:16 02/13/24 02:17 02/13/24 02:31 Temperature Pulse Rate Respiratory Rate Blood Pressure 168/101 H Pulse Oximetry 98 99 95 Oxygen Delivery 02/13/24 02:47 02/13/24 03:06 02/13/24 03:18 Temperature Pulse Rate 112 H Respiratory Rate 20 Blood Pressure 178/94 H Pulse Oximetry 97 96 97 Oxygen Delivery 02/13/24 05:48 02/13/24 06:00 02/13/24 08:00 Temperature 98.2 F Pulse Rate 117 H 112 H 105 H Respiratory Rate 23 H 24 H Blood Pressure 150/98 H 161/90 H Pulse Oximetry 98 94 Oxygen Delivery 02/13/24 09:06 02/13/24 08:00 02/13/24 10:00 Temperature 98.1 F Pulse Rate 103 H Respiratory Rate 20 Blood Pressure 156/118 H Pulse Oximetry 96 97 Oxygen Delivery Room Air Room Air 02/13/24 12:00
[2024-02-13 14:43] LABS: Anion Gap 11 mmol/L (4-12); Blood Urea Nitrogen 16 mg/dL (9-20); Calcium 9.6 mg/dL (8.4-10.2); Carbon Dioxide 19 mmol/L (22-30); Chloride 106 mmol/L (98-107); Estimated CRCL calculation 133 ml/min; Estimated Glomerular Filt Rate > 60; Glucose 213 mg/dL (65-110); Potassium 3.6 mmol/L (3.4-5.0); Sodium 136 mmol/L (137-145)
[2024-02-13 15:05] LABS: Glucose Point of Care 237 mg/dl (65-105)
[2024-02-13] MEDS: KCL 20 MEQ/0.45% NS 1,000 ML 75 ML IV CONT (15:18)
[2024-02-13] MEDS: INSULIN GLARGINE (*BKC) 100 UNITS/ML 30 UNITS SUB-Q (15:18)
[2024-02-13] MEDS: KCL 20 MEQ/SW 100 ML 100 ML 50 MEQ IVPB ×2 (15:42→19:12)
[2024-02-13 15:59] LABS: Glucose Point of Care 270 mg/dl (65-105)
[2024-02-13] MEDS: metroNIDAZOLE 500 MG/ISO 100ML 500 MG/100 ML BAG 200 MG IVPB (17:42)
[2024-02-13 18:09] LABS: Glucose Point of Care 241 mg/dl (65-105)
[2024-02-13 18:19] LABS: Hematocrit 42.2 % (42.0-52.0); Hemoglobin 14.4 g/dL (14.0-18.0); Mean Corpuscular HGB Conc 34.1 g/dl (32-36); Mean Corpuscular Hemoglobin 28.2 pg (26-34); Mean Corpuscular Volume 82.6 fl (80-100); Mean Platelet Volume 10.6 fl (7.4-10.4); Platelet Count Result 204 k/mm3 (150-375); Red Blood Count 5.11 M/mm3 (4.6-6.20); Red Cell Distribution Width 13.4 % (11.5-14.5); White Blood Count 15.4 K/mm3 (4.5-10.0)
[2024-02-13] MEDS: INSULIN ASPART (*BKC) 100 UNITS/ML SUB-Q ×2 (18:26→21:47)
[2024-02-13 18:44] LABS: Anion Gap 9 mmol/L (4-12); Blood Urea Nitrogen 14 mg/dL (9-20); Calcium 9.1 mg/dL (8.4-10.2); Carbon Dioxide 17 mmol/L (22-30); Chloride 107 mmol/L (98-107); Estimated CRCL calculation 133 ml/min; Estimated Glomerular Filt Rate > 60; Glucose 243 mg/dL (65-110); Potassium 3.7 mmol/L (3.4-5.0); Sodium 133 mmol/L (137-145)
--- NOTE | 2024-02-13 19:53 | PC.NURSE ---
Lucy, , called for an update.
[2024-02-13 21:48] LABS: Glucose Point of Care 240 mg/dl (65-105)
[2024-02-14] VITALS (16 sets, daily range): BP systolic 127–163; BP diastolic 69–104; PULSE 76–96; RESP 16–22; TEMP 36.7–37.1; O2SAT 3–97
[2024-02-14] MEDS: METOCLOPRAMIDE HCL INJ 10 MG/2 ML VIAL 5 MG IV PUSH ×2 (00:05→06:18)
[2024-02-14] MEDS: VANCOMYCIN HCL 125 MG ORAL CAPSULE PO ×4 (00:05→18:11)
[2024-02-14] MEDS: ONDANSETRON INJ 4 MG/2 ML VIAL IV PUSH ×3 (02:09→21:00)
[2024-02-14] MEDS: metroNIDAZOLE 500 MG/ISO 100ML 500 MG/100 ML BAG 100 MG IVPB ×3 (02:10→18:11)
[2024-02-14] MEDS: INSULIN ASPART (*BKC) 100 UNITS/ML SUB-Q ×4 (02:15→20:51)
[2024-02-14 02:22] LABS: Glucose Point of Care 226 mg/dl (65-105)
[2024-02-14] MEDS: KCL 20 MEQ/0.45% NS 1,000 ML 75 ML IV CONT (04:23)
[2024-02-14 04:33] LABS: Hematocrit 39.2 % (42.0-52.0); Hemoglobin 13.6 g/dL (14.0-18.0); Mean Corpuscular HGB Conc 34.7 g/dl (32-36); Mean Corpuscular Hemoglobin 28.4 pg (26-34); Mean Corpuscular Volume 81.8 fl (80-100); Mean Platelet Volume 9.2 fl (7.4-10.4); Platelet Count Result 160 k/mm3 (150-375); Red Blood Count 4.79 M/mm3 (4.6-6.20); Red Cell Distribution Width 13.2 % (11.5-14.5); White Blood Count 11.2 K/mm3 (4.5-10.0)
[2024-02-14 05:02] LABS: Alanine Aminotransferase 22 U/L (6-50); Albumin Level 3.8 g/dL (3.5-5.1); Alkaline Phosphatase 80 U/L (38-126); Anion Gap 7 mmol/L (4-12); Aspartate Amino Transferase 26 U/L (17-59); Bilirubin,Total 0.6 mg/dL (0.2-1.3); Blood Urea Nitrogen 12 mg/dL (9-20); Calcium 9.2 mg/dL (8.4-10.2); Carbon Dioxide 25 mmol/L (22-30); Chloride 104 mmol/L (98-107); Estimated CRCL calculation 116 ml/min; Estimated Glomerular Filt Rate > 60; Glucose 208 mg/dL (65-110); Magnesium 1.6 mg/dL (1.6-2.3); Potassium 3.7 mmol/L (3.4-5.0); Sodium 136 mmol/L (137-145)
[2024-02-14 06:26] LABS: Glucose Point of Care 201 mg/dl (65-105)
[2024-02-14] MEDS: PANTOPRAZOLE SODIUM IV 40 MG VIAL IV PUSH ×2 (08:35→20:52)
[2024-02-14] MEDS: MAGNESIUM SULF 2 GM/WATER 50ML 2 GM/50 ML BAG IVPB (08:36)
[2024-02-14] MEDS: ENOXAPARIN 40 MG/0.4 ML SYRINGE SUB-Q (08:36)
[2024-02-14] MEDS: INSULIN GLARGINE (*BKC) 100 UNITS/ML 30 UNITS SUB-Q (08:38)
--- NOTE | 2024-02-14 09:01 | WPDINTPN ---
Progress Note: A&P Assessment and Plan (1) Colitis: Code(s): K52.9 - Noninfective gastroenteritis and colitis, unspecified Status: Acute Assessment and Plan: History of recent C diff. CT scan suggestive of colitis. Patient reported diarrhea on presentation Patient is Currently on Flagyl/Rocephin and p.o. vancomycin He is also on isolation C diff has been ordered but patient has not had any significant diarrhea in the ICU. (2) DKA (diabetic ketoacidosis): Code(s): E11.10 - Type 2 diabetes mellitus with ketoacidosis without coma Status: Acute Assessment and Plan: Patient has been transition to subcutaneous insulin. Clear liquid diet and advance as tolerated has been ordered. Dietitian and mixing machine operator consult. (3) GI bleed: Code(s): K92.2 - Gastrointestinal hemorrhage, unspecified Status: Acute Assessment and Plan: Patient reports dark black stool. This could be secondary to colitis. He on initial CBC he appears hemoconcentrated. He has now received fluids Protonix IV q.12 hours Treatment of colitis as above Monitor his hemoglobin transfuse if needed GI consult (4) Nausea: Code(s): R11.0 - Nausea Status: Acute Assessment and Plan: P.r.n. Zofran ordered Reglan ordered for gastroparesis Plan DVT prophylaxis -Lovenox Stress ulcer prophylaxis -PPI Nutrition -advance diet Code Status - Full Code Transfer out of ICU Subjective Date/time seen: 02/14/24 Patient was transition to subcutaneous insulin yesterday. He is drinking liquids but due to nausea he has been unable to keep solids down. He he states some abdominal discomfort but did not had any significant diarrhea overnight. Patient denies fever, chest pain, shortness of breath, cough, headache or constipation. All other systems were reviewed and were negative On IV fluids Review of Systems Review of Systems: All systems reviewed & are unremarkable except as noted in HPI and below (HPI) Exam Narrative: General: Pt is alert awake and in NAD Lungs/Chest: Trachea central Clear BS B/L, No crackles or wheezing. Cardiac: RRR. Normal S1 S2. Systolic 3/6 murmur Circulation: Status post left BKA Abdomen: Normal bowel sounds.. Soft. NT. ND. Extremities: No clubbing, cyanosis or edema. Warm : Moser in place Neurologic: Follows commands. Moves all 4 extremities PERRL AO x3 Skin: No Rash Objective Data Vital Signs Vital Signs: Vital Signs - 24 hr 02/13/24 09:06 02/13/24 10:00 02/13/24 12:00 Temperature 36.7 C 36.7 C Pulse Rate 103 H 100 Respiratory Rate 20 14 Blood Pressure 156/118 H 138/87 Pulse Oximetry 96 97 96 Oxygen Delivery Room Air 02/13/24 12:00 02/13/24 14:00 02/13/24 16:00 Temperature 37.1 C Pulse Rate 91 Respiratory Rate 23 H Blood Pressure 157/89 H Pulse Oximetry 94 Oxygen Delivery Room Air Room Air 02/13/24 16:00 02/13/24 18:00 02/13/24 20:00 Temperature 36.9 C Pulse Rate 97 88 89 Respiratory Rate 18 20 Blood Pressure 156/84 H 156/86 H Pulse Oximetry 95 94 Oxygen Delivery 02/13/24 20:00 02/13/24 22:00 02/13/24 22:00 Temperature 36.9 C Pulse Rate 89 81 81 Respiratory Rate 24 H 17 Blood Pressure 129/65 157/81 H Pulse Oximetry 89 L 93 Oxygen Delivery 02/13/24 20:00 02/14/24 00:00 02/14/24 00:00 Temperature 36.8 C Pulse Rate 82 Respiratory Rate Blood Pressure 163/104 H Pulse Oximetry 94 Oxygen Delivery Room Air Room Air 02/14/24 00:00 02/14/24 02:00 02/14/24 02:00 Temperature Pulse Rate 83 82 82 Respiratory Rate 20 Blood Pressure 131/80 Pulse Oximetry 93 Oxygen Delivery 02/14/24 04:00 02/14/24 04:00 02/14/24 04:00 Temperature 36.7 C Pulse Rate 80 80 Respiratory Rate 22 H Blood Pressure 141/88 H Pulse Oximetry 93 Oxygen Delivery Room Air 02/14/24 06:00 02/14/24 06:00 02/14/24 08:32 Temperature 36.9 C 36.8 C Pulse Rate 79 79 82
--- NOTE | 2024-02-14 10:00 | WPDGIPROGNO ---
Progress Note: A&P Assessment and Plan (1) History of Clostridioides difficile colitis: Code(s): Z86.19 - Personal history of other infectious and parasitic diseases Status: Acute (2) DKA (diabetic ketoacidosis): Code(s): E11.10 - Type 2 diabetes mellitus with ketoacidosis without coma Status: Acute Plan Pt admitted to ICU for DKA, had some diarrhea but no stool sample obtained yet, still waiting for BM . He is receiving Metronidazole and Vancomicin empirically for his history of recent C difficile. Will wait for stool results. Time Spent With Patient Time with patient: less than 15 minutes Subjective Date/time seen: 02/14/24 10:00 Interval history: Pt continues to feel nauseated and weak. He had a few episodes of diarhea, none this morning. No stools collected yet. Exam GI: Inspection: distended GI Palp: Yes Soft to palpation, No Tenderness to palpation present (GI) and No Guarding due to palpation present (GI) Objective Data Vital Signs Vital Signs: Vital Signs - 24 hr 02/13/24 12:00 02/13/24 12:00 02/13/24 14:00 Temperature 98.0 F 98.7 F Pulse Rate 100 91 Respiratory Rate 14 23 H Blood Pressure 138/87 157/89 H Pulse Oximetry 96 94 Oxygen Delivery Room Air 02/13/24 16:00 02/13/24 16:00 02/13/24 18:00 Temperature 98.4 F Pulse Rate 97 88 Respiratory Rate 18 20 Blood Pressure 156/84 H 156/86 H Pulse Oximetry 95 94 Oxygen Delivery Room Air 02/13/24 20:00 02/13/24 20:00 02/13/24 22:00 Temperature 98.4 F Pulse Rate 89 89 81 Respiratory Rate 24 H 17 Blood Pressure 129/65 157/81 H Pulse Oximetry 89 L 93 Oxygen Delivery 02/13/24 22:00 02/13/24 20:00 02/14/24 00:00 Temperature Pulse Rate 81 Respiratory Rate Blood Pressure Pulse Oximetry Oxygen Delivery Room Air Room Air 02/14/24 00:00 02/14/24 00:00 02/14/24 02:00 Temperature 98.3 F Pulse Rate 82 83 82 Respiratory Rate Blood Pressure 163/104 H Pulse Oximetry 94 Oxygen Delivery 02/14/24 02:00 02/14/24 04:00 02/14/24 04:00 Temperature 98.1 F Pulse Rate 82 80 80 Respiratory Rate 20 22 H Blood Pressure 131/80 141/88 H Pulse Oximetry 93 93 Oxygen Delivery 02/14/24 04:00 02/14/24 06:00 02/14/24 06:00 Temperature 98.4 F Pulse Rate 79 79 Respiratory Rate 21 H Blood Pressure 148/95 H Pulse Oximetry 92 Oxygen Delivery Room Air 02/14/24 08:32 02/14/24 08:00 02/14/24 09:12 Temperature 98.3 F Pulse Rate 82 96 96 Respiratory Rate 19 Blood Pressure 149/92 H Pulse Oximetry 96 Oxygen Delivery 02/14/24 09:14 Temperature Pulse Rate 91 Respiratory Rate 16 Blood Pressure 149/92 H Pulse Oximetry 96 Oxygen Delivery Intake/Output Intake/Output: Intake & Output 02/11/24 02/12/24 02/13/24 02/14/24 23:59 23:59 23:59 23:59 Intake Total 5075.8 1381.2 Output Total 900 2125 Balance 4175.8 -743.8 Meds/Results Medications: Active Medications Generic Name Dose Route Start Last Admin Trade Name Freq PRN Reason Stop Dose Admin Al Hydrox/Mg Hydrox/Simethicone 30 ml 02/13/24 06:36 Mag Hydrox/Al Hydrox/Simeth 30 Ml Udc PO Q6H PRN Indigestion Aspirin 81 mg 02/13/24 09:40 02/14/24 09:15 Aspirin 81 Mg Enteric Tablet PO 03/15/24 09:39 Not Given DAILY OTILIO Dextrose 12.5 gm 02/13/24 01:54 Dextrose 50% 25 Gm/50 Ml Syringe IV PUSH PRN PRN Hypoglycemia Protocol Enoxaparin Sodium 40 mg 02/13/24 09:40 02/14/24 08:36 Enoxaparin 40 Mg/0.4 Ml Syringe SUB-Q 40 mg DAILY OTILIO Administration Glucagon 1 mg 02/13/24 01:54 Glucagon For Inj 1 Mg Vial IM PRN PRN Hypoglycemia Protocol Glucose 15 gm 02/13/24 01:54 Glucose Oral Gel 15 Gm Of Glucse In 37.5 Gm Tube PO PRN PRN Hypoglycemia Protocol Dextrose 1,000 mls @ 100 mls/hr 02/13/24 01:54 Dextrose 5% 1,000 Ml IVPB PRN PRN Hypoglycemia Protocol Me
[2024-02-14] MEDS: METOCLOPRAMIDE HCL INJ 10 MG/2 ML VIAL IV PUSH ×2 (11:06→18:11)
[2024-02-14] MEDS: POTASSIUM CHLORIDE INJ 40 MEQ in SODIUM CHLORIDE 0.9% IV 500 ML 130 MEQ IVPB (11:17)
[2024-02-14] MEDS: SODIUM CHLORIDE 0.9% IV 500 ML 100 ML (11:31)
--- NOTE | 2024-02-14 12:22 | PM.IMPN ---
Progress Note: A&P Assessment and Plan (1) Colitis: Code(s): K52.9 - Noninfective gastroenteritis and colitis, unspecified Status: Acute Assessment and Plan: History of recent C diff. CT scan suggestive of colitis. Patient reported diarrhea on presentation Patient is Currently on Flagyl/Rocephin and p.o. vancomycin He is also on isolation C diff has been ordered but patient has not had any significant diarrhea in the ICU. (2) DKA (diabetic ketoacidosis): Code(s): E11.10 - Type 2 diabetes mellitus with ketoacidosis without coma Status: Acute Assessment and Plan: Patient has been transition to subcutaneous insulin. Clear liquid diet and advance as tolerated has been ordered. Dietitian and special educator consult. (3) GI bleed: Code(s): K92.2 - Gastrointestinal hemorrhage, unspecified Status: Acute Assessment and Plan: Patient reports dark black stool. This could be secondary to colitis. He on initial CBC he appears hemoconcentrated. He has now received fluids Protonix IV q.12 hours Treatment of colitis as above Monitor his hemoglobin transfuse if needed GI consult (4) Nausea: Code(s): R11.0 - Nausea Status: Acute Assessment and Plan: P.r.n. Zofran ordered Reglan ordered for gastroparesis Plan DVT prophylaxis -Lovenox Stress ulcer prophylaxis -PPI Nutrition -advance diet Code Status - Full Code Subjective Date/time seen: 02/14/24 12:22 Interval history: Reporting nausea. Not able to tolerate diet. Currently on ss. Insulin drip is stopped yesterday night. AG is closed Review of Systems Review of Systems: As reviewed above in HPI All systems reviewed & are unremarkable except as noted in HPI and below (HPI) Exam Narrative: General: Pt is alert awake and in NAD Lungs/Chest: Trachea central Clear BS B/L, No crackles or wheezing. Cardiac: RRR. Normal S1 S2. Systolic 3/6 murmur Circulation: Status post left BKA Abdomen: Normal bowel sounds.. Soft. NT. ND. Extremities: No clubbing, cyanosis or edema. Warm : Moser in place Neurologic: Follows commands. Moves all 4 extremities PERRL AO x3 Skin: No Rash Const: General: comfortable Other: Acute distress intermittently due to retching. Eyes: Pupils: Equal, round and reactive pupils present Neck: Neck: supple Resp: Effort & Inspection: normal respiratory effort Auscultation: clear to auscultation bilaterally Cardio: Rate: regular rate Rhythm: regular rhythm Heart sounds: Murmur heart sound present (Holosystolic grade 3/4) GI: Inspection: non-distended Auscultation: normal bowel sounds Other: Rectal examination : empty rectal vault, no masses : General: Yes bladder normal to palpation Neuro: Cranial nerves: Yes Equal, round and reactive pupils present Other: Moves all 4 extremities spontaneously. No focal deficits identified. Extrem: General: no edema Objective Data Vital Signs Vital Signs: Vital Signs - 24 hr 02/13/24 14:00 02/13/24 16:00 02/13/24 16:00 Temperature 98.7 F 98.4 F Pulse Rate 91 97 Respiratory Rate 23 H 18 Blood Pressure 157/89 H 156/84 H Pulse Oximetry 94 95 Oxygen Delivery Room Air 02/13/24 18:00 02/13/24 20:00 02/13/24 20:00 Temperature 98.4 F Pulse Rate 88 89 89 Respiratory Rate 20 24 H Blood Pressure 156/86 H 129/65 Pulse Oximetry 94 89 L Oxygen Delivery 02/13/24 22:00 02/13/24 22:00 02/13/24 20:00 Temperature Pulse Rate 81 81 Respiratory Rate 17 Blood Pressure 157/81 H Pulse Oximetry 93 Oxygen Delivery Room Air 02/14/24 00:00 02/14/24 00:00 02/14/24 00:00 Temperature 98.3 F Pulse Rate 82 83 Respiratory Rate Blood Pressure 163/104 H Pulse Oximetry 94 Oxygen Delivery Room Air 02/14/24 02:00 02/14/24 02:00 02/14/24 04:00 Temperature Pulse Rate 82 82 80 Respiratory Rate 20 Blood Pressure 131/80 Pulse Oximetry 93 Oxygen De
[2024-02-14 12:48] LABS: Glucose Point of Care 170 mg/dl (65-105)
[2024-02-14 12:48] LABS: Glucose Point of Care 278 mg/dl (65-105)
[2024-02-14 16:22] LABS: Glucose Point of Care 141 mg/dl (65-105)
[2024-02-14] MEDS: BELLADONNA ALK/PHENOB ELIX 10 ML, MAG HYDROX/ALUMINUM HYD/SIMETH 30 ML, LIDOCAINE HCL 2... PO (18:27)
[2024-02-14 20:30] LABS: Toxigenic C. Diff POSITIVE (NEGATIVE)
[2024-02-14 20:58] LABS: Glucose Point of Care 254 mg/dl (65-105)
[2024-02-15] VITALS (7 sets, daily range): BP systolic 126–147; BP diastolic 77–89; PULSE 69–83; RESP 12–20; TEMP 36.7–37.1; O2SAT 90–97; BMI 26.3
[2024-02-15] MEDS: VANCOMYCIN HCL 125 MG ORAL CAPSULE PO ×3 (00:05→12:09)
[2024-02-15] MEDS: KCL 20 MEQ/0.45% NS 1,000 ML 75 ML IV CONT ×2 (00:05→12:10)
[2024-02-15] MEDS: METOCLOPRAMIDE HCL INJ 10 MG/2 ML VIAL IV PUSH ×3 (00:05→12:09)
[2024-02-15] MEDS: MELATONIN 5 MG TABLET PO (00:05)
[2024-02-15] MEDS: metroNIDAZOLE 500 MG/ISO 100ML 500 MG/100 ML BAG 100 MG IVPB ×2 (02:35→10:43)
[2024-02-15 04:32] LABS: Hematocrit 40.5 % (42.0-52.0); Hemoglobin 14.1 g/dL (14.0-18.0); Mean Corpuscular HGB Conc 34.8 g/dl (32-36); Mean Corpuscular Hemoglobin 28.5 pg (26-34); Mean Platelet Volume 9.6 fl (7.4-10.4); Platelet Count Result 152 k/mm3 (150-375); Red Blood Count 4.94 M/mm3 (4.6-6.20); Red Cell Distribution Width 12.8 % (11.5-14.5)
[2024-02-15] MEDS: ONDANSETRON INJ 4 MG/2 ML VIAL IV PUSH (04:33)
[2024-02-15 04:44] LABS: Alanine Aminotransferase 24 U/L (6-50); Albumin Level 3.7 g/dL (3.5-5.1); Alkaline Phosphatase 77 U/L (38-126); Anion Gap 8 mmol/L (4-12); Aspartate Amino Transferase 27 U/L (17-59); Bilirubin,Total 0.6 mg/dL (0.2-1.3); Blood Urea Nitrogen 11 mg/dL (9-20); Calcium 8.9 mg/dL (8.4-10.2); Carbon Dioxide 25 mmol/L (22-30); Chloride 104 mmol/L (98-107); Estimated CRCL calculation 133 ml/min; Estimated Glomerular Filt Rate > 60; Glucose 182 mg/dL (65-110); Magnesium 1.9 mg/dL (1.6-2.3); Potassium 3.3 mmol/L (3.4-5.0); Sodium 137 mmol/L (137-145)
[2024-02-15] MEDS: INSULIN ASPART (*BKC) 100 UNITS/ML SUB-Q ×2 (06:57→12:09)
[2024-02-15 07:03] LABS: Glucose Point of Care 317 mg/dl (65-105)
[2024-02-15 07:56] LABS: Glucose Point of Care 300 mg/dl (65-105)
[2024-02-15] MEDS: ENOXAPARIN 40 MG/0.4 ML SYRINGE SUB-Q (08:29)
[2024-02-15] MEDS: ASPIRIN 81 MG ENTERIC TABLET PO (08:29)
[2024-02-15] MEDS: INSULIN GLARGINE (*BKC) 100 UNITS/ML 30 UNITS SUB-Q (08:30)
[2024-02-15] MEDS: ROSUVASTATIN 10 MG TABLET PO (08:31)
[2024-02-15] MEDS: PANTOPRAZOLE SODIUM IV 40 MG VIAL IV PUSH (08:31)
[2024-02-15 12:04] LABS: Glucose Point of Care 292 mg/dl (65-105)
--- NOTE | 2024-02-15 12:42 | PM.DS ---
DS: Admitting Diagnosis Discharge Date 02/15/2024 Admitting Diagnosis DKA DS: Discharge Diagnosis Discharge Diagnosis (1) Colitis: Code(s): K52.9 - Noninfective gastroenteritis and colitis, unspecified Status: Acute (2) DKA (diabetic ketoacidosis): Code(s): E11.10 - Type 2 diabetes mellitus with ketoacidosis without coma Status: Acute (3) GI bleed: Code(s): K92.2 - Gastrointestinal hemorrhage, unspecified Status: Acute (4) Nausea: Code(s): R11.0 - Nausea Status: Acute DS: Summary Hospital Course Hospital Course: 59-year-old male who presented with complaint of 2 days history of nausea vomiting and inability to tolerate p.o. along with abdominal pain. On the day of admission knee also had large dark stool moderate in amount watery. He had history of C diff several weeks before and was treated with antibiotics. He also presents with history of gastroparesis. Used marijuana for this. In the ED was tachycardic and tachypneic with elevated blood pressure. WBC 16.8 hemoglobin 16.3 platelet 227 sodium 134 bicarb 17 anion gap 19 BUN 31 creatinine 0.97 glucose 441 hemoglobin A1c 9% lactic acid 2.1 calcium 10.6 magnesium 1.5 troponin negative x2 beta hydroxybutyrate 3.0 urinalysis positive for ketones and glucose. Influenza RSV and COVID swab negative. CT abdomen pelvis without contrast preliminary findings demonstrated mild colon wall thickening of descending colon, circumferential thickening of the distal esophagus stable left adrenal nodule measuring 2.4 cm Patient was admitted with diagnosis of colitis and was started on IV antibiotics with ceftriaxone and metronidazole. Received IV fluid he was admitted to the ICU for DKA. DKA was resolved with protocol and was transition to basal bolus insulin. C diff was checked which came back positive and antibiotic was switched to p.o. vancomycin. GI was consulted for concern for dark black stool. Most likely this was related to colitis. CBC remained stable. Recent EGD showing severe esophagitis and will be treated with PPI. Gastroparesis will treat with Reglan p.r.n.. Left below-knee amputation 11/24 Time Spent with Patient Time attestation: Total time spent providing and/or coordinating discharge services: 45 minutes Exam Narrative: General: Pt is alert awake and in NAD Lungs/Chest: Trachea central Clear BS B/L, No crackles or wheezing. Cardiac: RRR. Normal S1 S2. Systolic 3/6 murmur Circulation: Status post left BKA Abdomen: Normal bowel sounds.. Soft. NT. ND. Extremities: No clubbing, cyanosis or edema. Warm : Moser in place Neurologic: Follows commands. Moves all 4 extremities PERRL AO x3 Skin: No Rash DS: Data Data Completed and Pending Labs on day of discharge: Labs from last 24 hours 02/15/24 02/15/24 02/15/24 11:58 07:51 06:56 WBC RBC Hgb Hct MCV MCH MCHC RDW Plt Count MPV Sodium Potassium Chloride Carbon Dioxide Anion Gap BUN Creatinine Estim Creat Clear Calc Estimated GFR Glucose POC Capillary Glucose 292 H 300 H 317 H Calcium Magnesium Total Bilirubin AST ALT Alkaline Phosphatase Total Protein Albumin C. difficile (PCR) 02/15/24 02/14/24 02/14/24 04:25 20:50 19:04 WBC 10.0 RBC 4.94 Hgb 14.1 Hct 40.5 L MCV 82.0 MCH 28.5 MCHC 34.8 RDW 12.8 Plt Count 152 MPV 9.6 Sodium 137 Potassium 3.3 L Chloride 104 Carbon Dioxide 25 Anion Gap 8 BUN 11 Creatinine 0.60 L Estim Creat Clear Calc 133 Estimated GFR > 60 Glucose 182 H POC Capillary Glucose 254 H Calcium 8.9 Magnesium 1.9 Total Bilirubin 0.6 AST 27 ALT 24 Alkaline Phosphatase 77 Total Protein 7.0 Albumin 3.7 C. difficile (PCR) Positive A* 02/14/24 02/14/24 02/14/24 16:19 11:03 08:29 WBC RBC Hgb Hct MCV
[2024-02-15] MEDS: POTASSIUM CHLORIDE 20 MEQ ER TABLET 40 MEQ PO (13:05)
== END 2024-02-15 13:25 | disposition home or self-care (01) | DRG 638 ==
LOC: ANHED 04:47 → ANHICU 05:28
PROVIDERS: Internal Medicine; Admitting Provider General Practice; Emergency Provider Student in an Organized Health Care Education/Training Program; PCP Nurse Practitioner Family; Visit Provider Internal Medicine
DX: E11.10 Type 2 diabetes mellitus with ketoacidosis without coma (principal); A04.72 Enterocolitis due to Clostridium difficile, not specified as recurrent; I25.810 Atherosclerosis of coronary artery bypass graft(s) without angina pectoris; I10 Essential (primary) hypertension; E11.43 Type 2 diabetes mellitus with diabetic autonomic (poly)neuropathy; K31.84 Gastroparesis; K21.9 Gastro-esophageal reflux disease without esophagitis; G47.33 Obstructive sleep apnea (adult) (pediatric); F12.90 Cannabis use, unspecified, uncomplicated; Z20.822 Contact with and (suspected) exposure to COVID-19; Z79.82 Long term (current) use of aspirin; Z89.512 Acquired absence of left leg below knee; Z79.4 Long term (current) use of insulin; Z95.1 Presence of aortocoronary bypass graft; Z79.01 Long term (current) use of anticoagulants
CPT/HCPCS: 36415; 74176; 80048; 80053; 81003; 82010; 82948; 83036; 83605; 83690; 83735; 84484; 85025; 85027; 87493; 87636; 87641; 93005; 96361; 96365; 96375; 99285; A9270; J0696; J1200; J1650; J1815; J1836; J2405; J2470; J2765; J3475; J3480; J7030; J7040; J7120

== ENCOUNTER 2024-03-02 08:19 | Outpatient (CLI) | payer OTHER, SELFPAY ==
--- NOTE | ~2024-03-02 | XR_ITS ---
EXAMINATION: XR knee LT min 4V DATE: 03/02/2024 08:49 INDICATION: Left knee pain. Fall. TECHNIQUE: 4 views of left knee were obtained. COMPARISON: None. FINDINGS: There is a below-knee amputation. No fracture. There is mild osteoarthritis of patellofemor al compartment. No knee joint effusion. IMPRESSION: 1. Mild left knee osteoarthritis. Reviewed, dictated and finalized at location B.
== END 2024-03-02 08:20 | disposition home or self-care (01) ==
LOC: ANHIMG 08:23
PROVIDERS: PCP Nurse Practitioner Family; Visit Provider Nurse Practitioner Family
DX: S89.90XA Unspecified injury of unspecified lower leg, initial encounter (principal); X58.XXXA Exposure to other specified factors, initial encounter; M17.12 Unilateral primary osteoarthritis, left knee
CPT/HCPCS: 73564

== ENCOUNTER 2024-04-22 07:31 | Outpatient (CLI) | payer OTHER, SELFPAY ==
--- NOTE | ~2024-04-22 | NM_ITS ---
EXAM: NM gastric emptying study DATE: 04/22/2024 15:14 INDICATION: Gastroparesis with nausea and vomiting TECHNIQUE: A gastric emptying study was performed using the methodology of Antelmo SIEGEL, et al. J Nucl Med 2007; 48:568-572. The patient was given a meal consisting of 2 scrambled eggs labeled with 1.029 mCi Tc-99m sulfur colloid, 2 slices of toast, two packages of jam, and approximately 120 mL of water . Simultaneous anterior and posterior 1-min images of the abdomen were obtained with the patient supi ne at multiple time points over a total period of 4 hours. The geometric mean of anterior and posteri or views was determined, and the percentage retention was calculated for each time point. COMPARISON: None. FINDINGS: Gastric retention of the radiotracer-labeled meal was 36%, 4%, and 2% at the 1-hour, 2-hour, and 4-ho ur time points, respectively. With this technique, apparent rapid gastric emptying is suggested by <3 0% gastric retention at 1 hour. Delayed gastric emptying is defined by gastric retention of >90% at 1 hour, >60% retention at 2 hours, or >10% retention at 4 hours. IMPRESSION: 1. Normal gastric emptying. Reviewed, dictated and finalized at location A. 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 Normal gastric emptying.
== END 2024-04-22 07:32 | disposition home or self-care (01) ==
PROVIDERS: PCP Nurse Practitioner Family; Visit Provider Internal Medicine Gastroenterology
DX: K31.84 Gastroparesis (principal)
CPT/HCPCS: 78264; A9541

== ENCOUNTER 2024-06-16 16:06 | Outpatient (CLI) | payer OTHER, SELFPAY ==
[2024-06-16 16:26] LABS: Hematocrit 43.8 % (42.0-52.0); Hemoglobin 14.9 g/dL (14.0-18.0); Mean Corpuscular Volume 82.3 fl (80-100); Mean Platelet Volume 9.5 fl (7.4-10.4); Platelet Count Result 166 k/mm3 (150-375); Red Blood Count 5.32 M/mm3 (4.6-6.20); Red Cell Distribution Width 13.7 % (11.5-14.5); White Blood Count 7.4 K/mm3 (4.5-10.0)
[2024-06-16 16:44] LABS: Alanine Aminotransferase 29 U/L (6-50); Albumin Level 4.6 g/dL (3.5-5.1); Alkaline Phosphatase 77 U/L (38-126); Anion Gap 10 mmol/L (4-12); Aspartate Amino Transferase 24 U/L (17-59); Bilirubin,Total 0.6 mg/dL (0.2-1.3); Blood Urea Nitrogen 22 mg/dL (9-20); Carbon Dioxide 24 mmol/L (22-30); Chloride 103 mmol/L (98-107); Cholesterol 180 mg/dL (0-200); Estimated Glomerular Filt Rate > 60; Glucose 387 mg/dL (65-110); HDL Direct 72 mg/dL; Potassium 4.6 mmol/L (3.4-5.0); Sodium 137 mmol/L (137-145); Triglycerides 204 mg/dL (<150)
[2024-06-16 16:55] LABS: LDL Cholesterol Direct 75 mg/dL
[2024-06-16 17:13] LABS: Prostate Specific Antigen 0.5 ng/mL (< OR = 4.0)
[2024-06-16 17:27] LABS: Creatinine Urine 29.1 mg/dL
[2024-06-16 17:43] LABS: MALB Creatinine Ratio < 20.6 mg/g (0-30); Microalbumin Urine Random < 6.0 mg/L (0-16.7)
[2024-06-16 18:37] LABS: Hemoglobin A1C 9.7 % (<5.7)
== END 2024-06-16 16:07 | disposition home or self-care (01) ==
LOC: ANHLAB 16:07
PROVIDERS: PCP Nurse Practitioner Family; Visit Provider Nurse Practitioner Family
DX: Z00.00 Encounter for general adult medical examination without abnormal findings (principal); Z91.81 History of falling; F32.9 Major depressive disorder, single episode, unspecified; M19.90 Unspecified osteoarthritis, unspecified site; M67.911 Unspecified disorder of synovium and tendon, right shoulder; M67.912 Unspecified disorder of synovium and tendon, left shoulder; G62.9 Polyneuropathy, unspecified; M47.9 Spondylosis, unspecified; N40.0 Benign prostatic hyperplasia without lower urinary tract symptoms; K40.90 Unilateral inguinal hernia, without obstruction or gangrene, not specified as recurrent; N28.1 Cyst of kidney, acquired; D35.02 Benign neoplasm of left adrenal gland; Z89.512 Acquired absence of left leg below knee; I25.10 Atherosclerotic heart disease of native coronary artery without angina pectoris; K21.00 Gastro-esophageal reflux disease with esophagitis, without bleeding; Z76.89 Persons encountering health services in other specified circumstances; G47.00 Insomnia, unspecified; Z95.3 Presence of xenogenic heart valve; L40.9 Psoriasis, unspecified; I48.0 Paroxysmal atrial fibrillation; I10 Essential (primary) hypertension; E11.43 Type 2 diabetes mellitus with diabetic autonomic (poly)neuropathy
CPT/HCPCS: 36415; 80053; 80061; 82043; 83036; 84153; 85027; G0103

== ENCOUNTER 2024-07-20 08:00 | Outpatient (RCR) | payer OTHER, SELFPAY ==
--- NOTE | 2024-06-16 09:02 | OPREHPOC ---
Outpatient Therapy Plan of Care This is a Multidisciplinary Plan of Care that may contain components documented by all disciplines (PT, OT, and ST.) PT Problem 1 PT Problem #1 Knowledge Deficit PT Goal 1 Goal / Goal Update *indep with HEP Target Visit 10 PT Problem 2 PT Problem #2 Pain PT Goal 1 Goal / Goal Update * monitor pain in L LE as increase activity level; pain of L LE 4/10 at worst, to increase activity Target Visit 10 PT Problem 3 PT Problem #3 Impaired Functional Mobility PT Goal 1 Goal / Goal Update improve functional mobility and safety with prosthetic L LE: 1* Newell balance score of 52/56 2* 2 minute walking test distance of 425' 3* 5 reps sit/stand time of 18 seconds with 1 UE use 4* pt up/down 12 steps with use of 1 hand railing and crutches, modified indep 5* pt ambulate with 1 crutch Target Visit 10
--- NOTE | 2024-06-16 09:02 | PTOPEVAL1 ---
Assessment and note entered by Keysha Stein, PT Evaluation Information Assessment Status Evaluation ICD-10 Condition Codes (PT) Difficulty Walking R26.2,Abnormalities of gait and mobility R26.9 Other ICD-10 Condition Codes ( Z91.81 history of falls;Z89.512 L BKA PT) Onset May 2023 Subjective Information received first prosthesis in May--from [facility], using crutches; had L BKA November 2023; since receiving the prosthesis have had 1 fall, on the ice yesterday; is able to wear the prosthesis 4 hours, have some issues with skin due to psoriasis; Activity: home with , basement- have not been down there, but want to be able to, have one hand railing; not working outside of home; have been doing sitting and lying down L leg exercises GOAL: comfortable wearing prosthesis, go to basement, walk without crutches; Reported Pain Level Pain Score Self Report Additional Pain Score Comments L LE/ BKA: pain range in the past week 7-8/10; distal stump- sore, hurts, cramps, burning reinforced massage to L leg taking ibuprofen PRN; Assessment PT Clinical Summary Braden is s/p L BKA and has his first prosthesis. He has been increasing his wearing time to 4 hours of his prosthesis, doing his HEP and monitoring his skin. LE functional scale self rating of 89% limitation in activity level. His goal is to go into his basement, walk without the crutches and less pain in leg. With the evaluation: he is doing well with his gait pattern with the crutches; 2 minute walking test distance of 350'; 5 reps sit/stand with both UE use in 26 seconds--decreased wt shift to L LE; Newell balance score of 40-56; he cannot tolerate standing on L LE only due to pain in leg. He is motivated and been doing exercises at home for his L leg. Skilled PT services are indicated to increase dynamic and static standing balance, progression of balance retraining and gait to lesser assistive device, with education for HEP and safety with mobility and prosthetic training. Plan of Care Interventions Neuro Re-education,Patient/Caregiver Education, Prosthetic Training,Therapeutic Activities, Therapeutic Exercise,Self-Care/Home Management PT Services Indicated Yes Treatment Frequency and 2x/wk for 10 visits Duration These treatments will address the objective and functional deficits as defined above. The patient will be advanced safely and appropriately in order for the patient to progress towards his/her prior level of function. Additional exercises will be introduced and as well as a comprehensive home exercise program upon discharge, if needed, ?to ensure carryover of functional gains achieved in the clinic. This treatment plan has been reviewed and agreement upon by the patient.
--- NOTE | 2024-07-12 08:11 | PCPTNOTE ---
Pt rescheduled due to illness.
--- NOTE | 2024-07-20 08:49 | PTOPDC ---
Assessment and note entered by Keysha Stein, PT Assessment Status Discharge ICD-10 Condition Codes (PT) Difficulty Walking R26.2,Abnormalities of gait and mobility R26.9 Other ICD-10 Condition Codes ( Z91.81 history of falls;Z89.512 L BKA PT) Onset May 2023 Subjective Information still having pain in L hip, knee and end of stump; no longer have the hamstring cramps; to see Dr Shelton about the knee and hip; have tried the 1 & 3 ply socks, did not help the pain; have not had any falls; frustrated about the pain in his L leg and not able to golf and do things in standing; have been doing all of the exercises at home from you guys; is wearing the prosthesis about 12-14 hours/day, with removing several times to rub stump; is going into his basement, on stairs, slowly but can do it; agreed to discharge therapy for now and return later for more balance when pain is resolved Reported Pain Level Pain Score Self Report Additional Pain Score Comments end of stump; also have phantom pain; range of 8-10/10; increase to 10/10 with weight on leg and standing on it; and end of day; taking ibuprofen PRN, usually at night reinforced skin checks, rub L stump, use of ply socks Assessment PT Clinical Summary Braden has received 10 PT sessions. He continues to have pain in L hip, knee and stump which limits his mobility. And is very frustrated about the limitations in his activity level- golfing. Compared to the initial evaluation: pain from 7-8/ 10 to 8-10/10; self assessment with LE Functional scale from 89 to 81% limitation in activity level 5 reps sit/stand time from 26 to 23 seconds, with use of both UE's; 2 minute walking test distance with crutches from 350 to 415'; indep on stairs with one hand railing and one crutch; Newell balance/gait score from 40 to 44/56; he is able to walk with one crutch, but pain increases. He is not able to tolerate full WB on his L LE due to pain. He has not had any falls. Education completed for HEP and gait training. The goals were partially met. Discharge PT services. He is to continue with his HEP and walking as tolerated. He has follow up appt with general provider and ortho When issues with his prosthesis and L LE pain are resolved, recommend he return to PT for higher level balance and mobility retraining. Plan of Care PT Services Indicated No
== END 2024-07-20 09:49 | disposition home or self-care (01) ==
LOC: ANHPT 08:00
PROVIDERS: PCP Nurse Practitioner Family; Visit Provider Nurse Practitioner Family
DX: Z89.512 Acquired absence of left leg below knee (principal); Z91.81 History of falling
CPT/HCPCS: 97110; 97116; 97140; 97161; 97530

== ENCOUNTER 2024-09-19 12:45 | Outpatient (CLI) | payer OTHER, SELFPAY ==
--- NOTE | ~2024-09-19 | MR_ITS ---
EXAMINATION: MR abdomen wo/w con DATE: 09/19/2024 14:58 INDICATION: Other specified disorders of kidney and ureter TECHNIQUE: Magnetic resonance imaging (MRI) of the abdomen was performed without and with 19 mL Multi spencer intravenous contrast. Sequences included coronal T2-weighted SS-FSE, coronal and axial FS 2D-F IESTA, axial STIR FSE, axial T2-weighted SS-FSE, axial T2-weighted FS SS-FSE, axial diffusion-weighte d SE, axial dual-echo T1-weighted FSPGR, and axial and coronal T1-weighted LAVA. Postcontrast axial T 1-weighted LAVA images were obtained in a time course. Postcontrast coronal T1-weighted LAVA images w ere obtained. COMPARISON: CT dated 02/13/2024 FINDINGS: Heart size is normal. No pericardial effusion. Trace bilateral pleural effusions. Cholecystectomy cli ps at the gallbladder fossa. Liver, spleen, pancreas and bilateral adrenal glands are normal. Small r egion of cortical scarring at the lower pole of the left kidney likely sequela of prior infection or infarction. There numerous small T2 hyperintense nonenhancing cysts both kidneys which appear predomi nantly medullary. In addition there are few large parapelvic cysts in both kidneys. Visualized portio ns of bowels including the appendix are normal. No pathologically enlarged abdominal or upper pelvic lymphadenopathy. Large T1 hyperintense fat saturating hemangioma in the T4 vertebral body. Marrow sig nal is otherwise unremarkable.. IMPRESSION: 1. Numerous small cysts scattered throughout both kidneys with medullary distribution suggesting poss ibility of medullary sponge kidney with differential including polycystic kidney disease. Reviewed, dictated and finalized at location A. IMPRESSION: 1. Numerous small cysts scattered throughout both kidneys with medullary distri bution suggesting possibility of medullary sponge kidney with differential incl uding polycystic kidney disease.
--- NOTE | ~2024-09-19 | MR_ITS ---
EXAMINATION: MR femur LT wo/w con DATE: 09/19/2024 14:58 INDICATION: Left azhuj-ovf-yhan amputation. TECHNIQUE: Magnetic resonance imaging (MRI) of the left femur obtained without and with 19 mL Multiha nce was performed without intravenous contrast. A marker was placed over the mass. Sequences include d axial T1-weighted FS FSE and axial, sagittal and coronal T1-weighted FSE, fluid sensitive FSE STIR and post contrast T1-weighted FS FSE. Each sequences obtained as separate overlapping imaging of th e proximal femur and distal femur. The contralateral right thigh was included on the coronal imaging. COMPARISON: Left knee radiographs dated 03/02/[address] of the abdomen and pelvis dated 02/13/2024 FINDINGS: Again seen is a left ufjel-sjg-guqm amputation. There is mild edema in the soft tissues overlying the distal tibial osteotomy margin without enhancement or evident abscess. Mild marrow edema without sig nificant enhancement in the marrow along the osteotomy margin but without geographic loss of T1 fat s ignal to suggest osteomyelitis. Otherwise normal marrow signal throughout with no fracture or patholo gic marrow replacing process. No evident neuroma or other abnormal masses. There is secondary moderat e fatty atrophy of the remaining musculature at the proximal left calf. Musculature at visualized con tralateral right calf appears normal. There is also normal symmetric muscle bulk and signal in the mo re proximal bilateral thighs. Mild osteoarthritis at the bilateral hips with symmetric physiologic am ount fluid in both hip joint spaces. No pathologically enlarged or pelvic or inguinal lymphadenopathy . IMPRESSION: 1. Status post left vqpkx-ysl-maqp amputation without evident abscess, bursitis, osteoarthritis or ne uroma formation. 2. Mild bilateral hip and knee osteoarthritis without joint effusion. Reviewed, dictated and finalized at location A. IMPRESSION: 1. Status post left nybcz-wzc-xobv amputation without evident abscess, bursitis , osteoarthritis or neuroma formation. 2. Mild bilateral hip and knee osteoarthritis without joint effusion.
== END 2024-09-19 12:46 | disposition home or self-care (01) ==
LOC: MICIMG 12:46
PROVIDERS: PCP Nurse Practitioner Family; Visit Provider Nurse Practitioner Family
DX: N28.89 Other specified disorders of kidney and ureter (principal); Z89.512 Acquired absence of left leg below knee; M79.605 Pain in left leg; M86.052 Acute hematogenous osteomyelitis, left femur
CPT/HCPCS: 73720; 74183; A9577

== ENCOUNTER 2025-01-03 06:52 | Outpatient (CLI) | payer OTHER, SELFPAY ==
[2025-01-03 08:20] LABS: Alanine Aminotransferase 31 U/L (6-50); Albumin Level 4.3 g/dL (3.5-5.1); Alkaline Phosphatase 100 U/L (38-126); Anion Gap 10 mmol/L (4-12); Aspartate Amino Transferase 27 U/L (17-59); Bilirubin,Total 0.5 mg/dL (0.2-1.3); Blood Urea Nitrogen 26 mg/dL (9-20); Calcium 10.0 mg/dL (8.4-10.2); Carbon Dioxide 22 mmol/L (22-30); Chloride 104 mmol/L (98-107); Cholesterol 189 mg/dL (0-200); Estimated Glomerular Filt Rate > 60; Glucose 371 mg/dL (65-110); HDL Direct 58 mg/dL; Potassium 4.5 mmol/L (3.4-5.0); Sodium 136 mmol/L (137-145); Total Protein 7.3 g/dL (6.3-8.2); Triglycerides 178 mg/dL (<150)
[2025-01-03 08:58] LABS: Thyroid Stimulating Hormone 1.890 uIU/mL (0.465-4.680)
[2025-01-03 09:15] LABS: Vitamin B12 856.0 pg/mL (239-931)
[2025-01-03 09:33] LABS: Free T4 Free Thyroxine 1.01 ng/dL (0.78-2.19)
[2025-01-03 10:10] LABS: Total Protein Urine Random 9 mg/dL; Ur Ttl Prot Creatinine Ratio 0.26 mg/mg (0-0.20)
[2025-01-03 10:18] LABS: MALB Creatinine Ratio < 17.5 mg/g (0-30)
[2025-01-06 15:09] LABS: Dopamine, Pl <10.0 pg/mL (0.0-36.7); Epinephrine, Plasma <10.0 pg/mL (0.0-55.4); Norepinephrine, Pl 131 pg/mL (115-524)
== END 2025-01-03 06:53 | disposition home or self-care (01) ==
LOC: ANHLAB 06:54
PROVIDERS: PCP Nurse Practitioner Family; Referring Provider Internal Medicine Nephrology; Visit Provider Nurse Practitioner Family
DX: Q61.02 Congenital multiple renal cysts (principal); D35.02 Benign neoplasm of left adrenal gland; I10 Essential (primary) hypertension; E11.43 Type 2 diabetes mellitus with diabetic autonomic (poly)neuropathy
CPT/HCPCS: 36415; 80053; 80061; 82043; 82306; 82384; 82533; 82570; 82607; 83835; 84100; 84156; 84439; 84443

== ENCOUNTER 2025-02-06 14:05 | Outpatient (CLI) | payer OTHER, SELFPAY ==
--- NOTE | ~2025-02-06 | CT_ITS ---
EXAMINATION: CTA chest DATE: 02/06/2025 15:13 INDICATION: Aneurysm of ascending aorta without rupture. TECHNIQUE: Computed tomographic angiography (CTA) of the chest was performed with 100 mL Omnipaque-350 intravenous contrast. Automated exposure control and iterative reconstruction technique were employed. The dose-length product was 713.83 mGy-cm. Maximum intensity projection 3D-reconstructions of the aorta and other arteries were constructed by the technologist on a separate workstation. COMPARISON: CT abdomen and pelvis 02/13/2024 FINDINGS: The lungs demonstrate mild atelectasis. No pleural effusion. There is a 4 mm nodule in the thyroid, likely not clinically significant. The heart size is normal. There are coronary artery calcifications. No pericardial effusion. There is a closure device at left atrial appendage. There are changes of aortic valve replacement. There is ectasia of ascending aorta measuring 4.5 cm. The aorta measures 3.0 cm at the isthmus and 2.9 cm in the mid descending aorta. There are changes of cholecystectomy. There is moderate thoracic spondylosis. IMPRESSION: 1. Ectasia of ascending aorta measuring 4.5 cm. Reviewed, dictated and finalized at location E.
[2025-02-06 14:50] LABS: Estimated Glomerular Filt Rate > 60
--- OUTSIDE RECORDS SUMMARY | 2025-02-06 14:55 | XMS_ITS | Patient Health Record ---
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 Name Role Phone Arnold Deal Primary Care Provider Unavail able Shiv Holguin Unavailable [phone] Allergies Allergen (clinical drug ingredient) Drug/Non Drug Allergy documented on EMR Reaction Allergy Type Onset Date Status Iodine Unknown Drug Allergy Active Reason For Referral No Information Medications Medication SIG (Take, Route, Frequency, Duration) Notes Start Date End Date Status Januvia Active aspirin Active GlipiZIDE Active Metformin Active Verapamil Active zoloft Active simvastatin Active Plan Of Treatment No Information Insurance Providers Payer Name Payer Address Payer Phone Subscriber Number Group Number Insured Name Patient Relationship to Insured Coverage Start Date Coverage End Date [facility] [id number] [place] [phone] [id number] Charles Castorena Self - patient is the insured Medical (General) History Medical History History ICD Code diabetes type 2 Hypertension hyperlipidemia erectile dysfunction obesity psoriasis depression Atrial fibrillation pulmonary embolism Surgical History Surgery Date(Month/Year) ankle surgery 2000/2002/2003 sphincterotomy 2003 knee surgery heart ablation
== END 2025-02-06 14:06 | disposition home or self-care (01) ==
PROVIDERS: PCP Nurse Practitioner Family; Visit Provider Internal Medicine Cardiovascular Disease
DX: I77.810 Thoracic aortic ectasia (principal)
CPT/HCPCS: 71275; Q9967